=== PATIENT | female | born 1935 | race Two or more races ===

== ENCOUNTER 2021-05-31 11:48 | Outpatient (CLI) | payer MEDICAID, SELFPAY ==
[2021-05-31 12:15] LABS: Lactic Acid 1.7 mmol/L (0.4-1.9)
== END 2021-05-31 23:59 | disposition home or self-care (01) ==
LOC: LABSPEC 11:48
PROVIDERS: PCP Internal Medicine; Visit Provider Internal Medicine Hematology & Oncology
DX: Z20.822 Contact with and (suspected) exposure to COVID-19 (principal)
CPT/HCPCS: 83605

== ENCOUNTER 2021-06-04 22:40 | Inpatient (IN) | payer MEDICAID, SELFPAY ==
[2021-06-04 22:42] VITALS: BP 104/48; PULSE 105; RESP 18; TEMP 36.3; BMI 22.3
--- NOTE | 2021-06-04 23:02 | EDS_ITS ---
HPI History of Present Illness Chief Complaint: Confusion Informant: patient and family Narrative Narrative: 86-year-old female with a history of rectal cancer status post chemo and radiation presenting to the emergency department for concerns of dehydration and diarrhea. Patient tested positive for COVID-19 last Friday. She had a significant more amount of diarrhea today despite Imodium. Family notes increased confusion compared to baseline. They note cough but no significant shortness of breath. [facility] Medical History (Updated 06/05/21 @ 00:[address] Raúl Gant DO) COVID-19 Rectal cancer Allergy/AdvReac Type Severity Reaction Status Date / Time No Known Allergies Allergy Verified 06/04/21 22:45 Social History (Updated 06/04/21 @ 23:[address] Raúl Gant DO) household members: family current gender identity: female Smoking Status: Never smoker ROS ROS ED Constitutional Constitutional ED: Reports fever(s); Denies chills or weight loss Eyes Eyes: Denies change in vision or diplopia ENT ENT ED: Denies ear pain, rhinorrhea or sore throat Cardiovascular Cardiovascular: Denies chest pain, orthopnea, palpitations or racing heartbeat Respiratory/Chest Respiratory/Chest: Reports cough; Denies dyspnea or orthopnea Gastrointestinal Gastrointestinal: Reports diarrhea; Denies abdominal pain, nausea or vomiting Genitourinary Genitourinary ED: Denies dysuria, hematuria or urinary frequency Musculoskeletal Musculoskeletal: Denies arthralgias or myalgias Integumentary Denies abscess or rash Neurologic Neurologic: Denies headache(s) or weakness Psychiatric Psychiatric: Denies anxiety, depression, suicidal ideation or suicidal thoughts Endocrine Endocrinology: Denies polydipsia, polyphagia or polyuria Allergic/Immunologic Allergic/Immunologic ED: Denies mouth swelling, tongue swelling or urticaria EXAM Physical Exam Const Vital Signs: 06/04/21 22:42 Temperature 97.4 F L Temperature Source Temporal Pulse Rate 105 H Respiratory Rate 18 Blood Pressure 104/48 L Blood Pressure Mean 66 Positive well nourished and well developed General Appearance ED: well developed HEENT Reports normocephalic, head/scalp atraumatic, TM's clear and dry mucous membranes Negative for trauma Tympanic Membrane ED: Yes TM's clear Mouth ED: Yes dry mucous membranes Mouth: dry mucous membranes Eyes PERRL and EOMs intact bilaterally Neck no lymphadenopathy, supple and no JVD Resp normal respiratory effort and clear to auscultation bilaterally Cardio regular rate, regular rhythm and no murmurs GI normal to inspection, nondistended, normoactive bowel sounds and non-tender Palpation: soft Back/Spine no CVA tenderness and normal ROM Extremity Extremity Narrative: Arthritic changes General Extremety ED: Negative for edema General Extremity: Negative for edema Neuro oriented x3 and CN's II-XII intact bilaterally Sensorium / Orientation: alert Motor Exam: strength 5/5 throughout Psych mental status grossly normal Mood & Affect: Negative for depressed or tearful Skin no rashes or lesions noted and no wounds MDM MDM MDM Narrative Medical decision making narrative: Patient's blood counts reveal a white count of 6.7 with a hemoglobin 8.4. She does have a history of chronic anemia. Lactic acid elevated at 2.5. Patient's potassium 5.2 with a sodium of 141. Magnesium 2.5. CO2 is down to 15. BUN is 79 with a creatinine of 2.29. Her creatinine last week was 1.2. Interpretation of the chest x-ray is multifocal infiltrates consistent with COVID-19. From a pulmonary standpoint she continues to do well with not requiring any supplemental oxygen or complaining of dyspnea. Patient continues to have diarrheal losses. She has received a liter of fluids. Plan will be admission for hydration. Lab Data Attestation: I reviewed the patient's lab results. Labs: Laboratory Results - last 24 hr 06/04/21 06/04/21 06/04/21 23:10 23:10 23:15 WBC 6.7 RBC 2.92 L Hgb 8.4 L Hct 24.7 L MCV 84.6 MCH 28.8 MCHC 34.0 RDW Std Deviation 65.3 H RDW Coeff of Alida 21.6 H Plt Count 123 L MPV 11.1 Immature Gran % (Auto) 3.100 H Neut % (Auto) 92.0 H Lymph % (Auto) 0.6 L [place] % (Auto) 4.2 Eos % (Auto) 0.0 Baso % (Auto) 0.1 Absolute Neuts (auto) 6.2 Absolute Lymphs (auto) 0.04 L Nucleated RBC % 0.3 Anisocytosis 3+ Sodium 141 Potassium 5.2 H Chloride 116 H Carbon Dioxide 15.0 L Anion Gap 10 BUN 79 H Creatinine 2.29 H Estim Creat Clear Calc 13.25 Est GFR (MDRD) Af Amer 26 L Est GFR (MDRD) Non-Af 22 L BUN/Creatinine Ratio 34.5 H Glucose 149 H Lactic Acid 2.5 H* Calcium 8.1 L Magnesium 2.5 Total Bilirubin 0.30 AST 91 H ALT 41 Alkaline Phosphatase 70 Total Protein 6.2 L Albumin 2.0 L Globulin 4.2 Albumin/Globulin Ratio 0.5 L Radiography Diagnostic Testing: Clinical Impression(s) from Imaging Studies Chest X-Ray 06/04/21 23:20 IMPRESSION: Patchy pulmonary infiltrates suspicious for COVID pneumonia. Electronically Signed: Johny Go DO at 23:43 EST Tel [phone], Service support , EKG Initial EKG: Attestation: I personally reviewed and interpreted this EKG as follows: Comments: Sinus rhythm with a ventricular rate of 95 bpm Discharge Plan Dx/Rx/DC Orders Clinical Impression: COVID-19, PADILLA (acute kidney injury), Acute encephalopathy Disposition Disposition: Acute Care Hospital [facility]
[2021-06-04] MEDS: 0.9% Normal Saline 1,000 ML 1000 ML IV (23:20)
--- NOTE | 2021-06-04 23:20 | RAD_ITS ---
STUDY: X-RAY CHEST REASON FOR EXAM: Female, 86 years old. COVID 19. TECHNIQUE: Single AP portable view of the chest. COMPARISON: None. FINDINGS: Lungs well expanded. There is patchy groundglass infiltrates throughout both lungs most marked in the left mid and lower lobe. There is no demonstrated pleural abnormality. Normal size heart. Normal mediastinum and rubia. Normal visualized pulmonary arteries. There is atherosclerotic calcification of the aortic arch with tortuosity. Dextroscoliosis and degenerative changes of the thoracic spine marked degenerative changes of the shoulders. There is no demonstrated abnormality of the visualized soft tissue structures of the upper abdomen. RAD/Chest 1 View (Portable) IMPRESSION: Patchy pulmonary infiltrates suspicious for COVID pneumonia. Electronically Signed: Johny Go DO at 23:43 EST Tel [phone], Service support ,
[2021-06-04 23:31] LABS: Absolute Lymphocyte Count 0.04 X10^3/uL (0.83-4.51); Absolute Neutrophil Count 6.2 X10^3/uL (2.0-7.7); Basophil# 0.01 X10^3/uL; Basophil% 0.1 % (0-1); Hematocrit 24.7 % (37-47); Hemoglobin 8.4 g/dL (12.0-15.0); Lymphocyte # 0.04 X10^3/ul (0.83-4.51); Lymphocyte % 0.6 % (19-41); Mean Corpuscular Hgb 28.8 pg (27.0-32.0); Mean Corpuscular Volume 84.6 fL (81-99); Mean Platelet Vol. 11.1 fl (6.2-12.0); Monocyte# 0.28 X10^3/uL; Monocyte% 4.2 % (0-10); NRBC Flagged by Analyzer 0.3 % (0-5); POSITIVE DIFFERENTIAL YES; POSITIVE MORPHOLOGY YES; Platelet Count 123 K/mm3 (150-450); RBC Distribution Width CV 21.6 % (11.6-14.6); RBC Distribution Width SD 65.3 fl (35.1-43.9); Red Blood Count 2.92 M/mm3 (4.2-5.4); White Blood Count 6.7 K/mm3 (4.4-11.0)
[2021-06-04 23:43] LABS: ALB/GLOB Ratio 0.5 RATIO (0.9-2.4); AST(SGOT) 91 U/L (15-37); Alanine Aminotransfer ALT/SGPT 41 U/L (13-56); Alkaline Phosphatase 70 U/L (45-117); Anion Gap 10 (5-15); BUN 79 mg/dL (7-18); BUN/Creat Ratio 34.5 RATIO (10-20); Calcium,Total 8.1 mg/dL (8.5-10.1); Chloride 116 mmol/L (98-107); Creatinine, Serum 2.29 mg/dL (0.55-1.02); EST Glomerular Filtration Rate 22 mL/min (>60); Est Glom Filt Rate - Afr Amer 26 mL/min (>60); Estimated Creatinine Clearance 13.25 ml/min; Globulin 4.2 g/dL (2.2-4.2); Glucose 149 mg/dL (74-106); Magnesium 2.5 mg/dL (1.6-2.6); Potassium 5.2 mmol/L (3.5-5.1); Protein, Total 6.2 g/dL (6.4-8.2); Sodium Level 141 mmol/L (136-145)
[2021-06-04 23:47] LABS: Differential Indicated SCAN CRITERIA MET
[2021-06-04 23:51] LABS: Anisocytosis 3+
[2021-06-05] VITALS (11 sets, daily range): BP systolic 102–151; BP diastolic 51–68; PULSE 82–142; RESP 16–20; TEMP 36.4–37.7; O2SAT 93–97; BMI 22.0
[2021-06-05 00:01] LABS: Lactic Acid 2.5 mmol/L (0.4-1.9)
--- NOTE | 2021-06-05 00:03 | EKG12_ITS ---
Test Reason : CONFUSION Blood Pressure : / mmHG Vent. Rate : 095 BPM Atrial Rate : 095 BPM P-R Int : 084 ms QRS Dur : 068 ms QT Int : 356 ms P-R-T Axes : 020 024 015 degrees QTc Int : 447 ms Sinus rhythm with short NH Low voltage QRS Confirmed by JERAMY COOPER, GARCÍA ([id number]), sports editor ANGELIA MARIN ([id number]) on 06/05/2021 2:18:40 PM Referred By: LUKE Confirmed By:GARCÍA DESHPANDE MD
--- NOTE | 2021-06-05 00:29 | HP.PCM_ITS ---
HPI - General HPI Narrative DEVANG BAER, is a 86 F who presents to the emergency room due to diarrhea and dehydration. Patient has a significant past medical history of rectal carcinoma status post chemo and radiation therapy the last treatment being last . Today the patient has had several bouts of diarrhea and has taken up to 9 doses of Imodium to slow it down. On Friday she tested positive for COVID virus. However, the patient has minimal respiratory complaints at this time predominantly complains of generalized abdominal discomfort and diarrhea. Laboratory studies are revealing for acute dehydration. Patient will be admitted to general medical floor with IV hydration and reassessed in the morning for possible discharge tomorrow. [facility] Medical History (Updated 06/05/21 @ 00:[address] Jhon Owen MD) COVID-19 Rectal cancer Allergy/AdvReac Type Severity Reaction Status Date / Time No Known Allergies Allergy Verified 06/04/21 22:45 Social History (Updated 06/04/21 @ 23:[address] Raúl Gant DO) household members: family current gender identity: female Smoking Status: Never smoker ROS Constitutional Constitutional: Reports fatigue; Denies chills or fever(s) Eyes Eyes: Denies change in vision ENT HEENT: Denies dysphagia Cardiovascular Cardiovascular: Denies chest pain Respiratory/Chest Respiratory/Chest: Denies cough Gastrointestinal Gastrointestinal: Reports diarrhea and nausea; Denies hematochezia or melena Genitourinary Genitourinary: Denies dysuria Neurologic Neurologic: Denies abnormal gait Psychiatric Psychiatric: Denies anxiety Vital Signs Vital Signs Vital Signs: 06/04/21 22:42 Temperature 97.4 F L Temperature Source Temporal Pulse Rate 105 H Respiratory Rate 18 Blood Pressure 104/48 L Blood Pressure Mean 66 Weight Weight: 103 lb Body Mass Index (BMI) 22.3 Physical Exam Const oriented x3 HEENT normocephalic and head/scalp atraumatic Eyes PERRL Neck supple Lymph Lymphatic: no lymphadenopathy noted Resp normal respiratory effort Cardio regular rate, regular rhythm, S1 normal heart sound and S2 normal heart sound GI normal to inspection, nondistended, normoactive bowel sounds and soft to palpation Extremity no clubbing, cyanosis or edema Skin General Skin Exam: turgor normal Neuro CN's II-XII intact bilaterally Psych affect normal Results Lab / Micro Data Result Diagrams: 06/04/21 23:10 06/04/21 23:10 Labs: Laboratory Results - last 24 hr 06/04/21 23:10: WBC 6.7, RBC 2.92 L, Hgb 8.4 L, Hct 24.7 L, MCV 84.6, MCH 28.8, MCHC 34.0, RDW Std Deviation 65.3 H, RDW Coeff of Alida 21.6 H, Plt Count 123 L, MPV 11.1, Immature Gran % (Auto) 3.100 H, Neut % (Auto) 92.0 H, Lymph % (Auto) 0.6 L, [place] % (Auto) 4.2, Eos % (Auto) 0.0, Baso % (Auto) 0.1, Absolute Neuts (auto) 6.2, Absolute Lymphs (auto) 0.04 L, Nucleated RBC % 0.3, Anisocytosis 3+ 06/04/21 23:10: Sodium 141, Potassium 5.2 H, Chloride 116 H, Carbon Dioxide 15.0 L, Anion Gap 10, BUN 79 H, Creatinine 2.29 H, Estim Creat Clear Calc 13.25, Est GFR (MDRD) Af Amer 26 L, Est GFR (MDRD) Non-Af 22 L, BUN/Creatinine Ratio 34.5 H , Glucose 149 H, Calcium 8.1 L, Magnesium 2.5, Total Bilirubin 0.30, AST 91 H, ALT 41, Alkaline Phosphatase 70, Total Protein 6.2 L, Albumin 2.0 L, Globulin 4.2, Albumin/Globulin Ratio 0.5 L 06/04/21 23:15: Lactic Acid 2.5 H* Radiology Impression Chest X-Ray 06/04/21 23:20 IMPRESSION: Patchy pulmonary infiltrates suspicious for COVID pneumonia. Electronically Signed: Johny Go DO at 23:43 EST Tel [phone], Service support , Assessment & Plan Assessment/Plan (1) PADILLA (acute kidney injury): (2) COVID-19: (3) Rectal cancer: PLAN: 1. Acute kidney injury secondary to dehydration from diarrhea?admit patient to general medical floor we will hydrate with D5 half-normal saline with 20 mill equivalents of KCl at a rate of 100 cc/h overnight and repeat BMP in the morning 2. COVID-19 positive?continue isolation protocol -patient denies respiratory complaint at this time 3. History of rectal cancer/numerous recent medications?we will add a C. difficile and stool culture 4. DVT prophylaxis?SCDs due to acute kidney injury Charges/Coding Visit Charges OBSV E&M: 23399 Initial observation care L2
[2021-06-05] MEDS: 0.9% Normal Saline 1,000 ML 100 ML IV (02:29)
--- NOTE | 2021-06-05 03:09 | PCS.PANDOC ---
Addendum entered by Jacqueline Silva 06/05/21 03:12: 06/05/2021 0138hrs Original Note: PANDEMIC DOCUMENTATION INITIATED: Date: 01/08/2021 Time: 190
[2021-06-05 03:22] LABS: Reflex Lactate? Y
[2021-06-05 04:41] LABS: Anion Gap 8 (5-15); BUN 67 mg/dL (7-18); BUN/Creat Ratio 36.8 RATIO (10-20); Calcium,Total 7.5 mg/dL (8.5-10.1); Chloride 121 mmol/L (98-107); Creatinine, Serum 1.82 mg/dL (0.55-1.02); EST Glomerular Filtration Rate 28 mL/min (>60); Est Glom Filt Rate - Afr Amer 34 mL/min (>60); Estimated Creatinine Clearance 16.55 ml/min; Glucose 101 mg/dL (74-106); Potassium 4.5 mmol/L (3.5-5.1); Sodium Level 145 mmol/L (136-145)
[2021-06-05 04:48] LABS: Lactic Acid 1.3 mmol/L (0.4-1.9)
--- NOTE | 2021-06-05 07:19 | PCM.PN.HOSP ---
Subjective Subjective Patient is an 86-year-old lady who recently completed chemoradiation therapy for rectal CA presented with profuse diarrhea. Patient tested positive for COVID on 06/01/2021. Presented to the emergency department due to the persistent diarrhea. Patient was found to be in acute kidney injury on admission admitted to regular nursing floor for further management Objective Data Objective Data Vital Signs: Vital Signs Temp Pulse Resp BP Pulse Ox 99 F 96 20 H 121/54 H 94 06/05/21 02:33 06/05/21 02:33 06/05/21 02:33 06/05/21 02:33 06/05/21 02:33 Oxygen Delivery Method Room Air Weight: 46.4 kg Body Mass Index (BMI) 22.0 Intake & Output: Intake and Output for Last 24 Hours 06/03/21 06/04/21 06/05/21 23:59 23:59 23:59 Intake Total 1000 / 1000 Balance 1000 / 1000 Lab / Micro Data Result Diagrams: 06/04/21 23:10 06/05/21 04:00 Labs: Laboratory Results - last 24 hr 06/04/21 23:10: WBC 6.7, RBC 2.92 L, Hgb 8.4 L, Hct 24.7 L, MCV 84.6, MCH 28.8, MCHC 34.0, RDW Std Deviation 65.3 H, RDW Coeff of Alida 21.6 H, Plt Count 123 L, MPV 11.1, Immature Gran % (Auto) 3.100 H, Neut % (Auto) 92.0 H, Lymph % (Auto) 0.6 L, [place] % (Auto) 4.2, Eos % (Auto) 0.0, Baso % (Auto) 0.1, Absolute Neuts (auto) 6.2, Absolute Lymphs (auto) 0.04 L, Nucleated RBC % 0.3, Anisocytosis 3+ 06/04/21 23:10: Sodium 141, Potassium 5.2 H, Chloride 116 H, Carbon Dioxide 15.0 L, Anion Gap 10, BUN 79 H, Creatinine 2.29 H, Estim Creat Clear Calc 13.25, Est GFR (MDRD) Af Amer 26 L, Est GFR (MDRD) Non-Af 22 L, BUN/Creatinine Ratio 34.5 H, Glucose 149 H, Calcium 8.1 L, Magnesium 2.5, Total Bilirubin 0.30, AST 91 H, ALT 41, Alkaline Phosphatase 70, Total Protein 6.2 L, Albumin 2.0 L, Globulin 4.2, Albumin/Globulin Ratio 0.5 L 06/04/21 23:15: Lactic Acid 2.5 H* 06/05/21 04:00: Sodium 145, Potassium 4.5, Chloride 121 H, Carbon Dioxide 16.0 L, Anion Gap 8, BUN 67 H, Creatinine 1.82 H, Estim Creat Clear Calc 16.55, Est GFR (MDRD) Af Amer 34 L, Est GFR (MDRD) Non-Af 28 L, BUN/Creatinine Ratio 36.8 H, Glucose 101, Calcium 7.5 L 06/05/21 04:00: Lactic Acid 1.3 Radiography Diagnostic Testing: Radiology Impression Chest X-Ray 06/04/21 23:20 IMPRESSION: Patchy pulmonary infiltrates suspicious for COVID pneumonia. Electronically Signed: Johny Go DO at 23:43 EST Tel [phone], Service support , Physical Exam Narrative GENERAL: Frail looking HEENT: Atraumatic; EYES; Anicteric, Normal Conjunctiva NECK; supple, normal thyroid, RESPIRATORY: Diminished to auscultation CARDIOVASCULAR: Regular S1 S2, GI: soft, normoactive bowel sounds, : No Renal angle tenderness; EXTREMITIES: No edema, no clubbing, MUSCULOSKELETAL: no muscle waisting NEURO: Awake; no lateralizing signs. SKIN: No Rash PSYCH; Flat affect Assessment & Plan Assessment/Plan (1) PADILLA (acute kidney injury): (2) COVID-19: (3) Rectal cancer: PLAN: Patient is an 86-year-old lady who recently completed chemoradiation therapy for rectal CA presented with profuse diarrhea. Patient tested positive for COVID on 06/01/2021. Presented to the emergency department due to the persistent diarrhea. Patient was found to be in acute kidney injury on admission admitted to regular nursing floor for further management 1. Acute kidney injury ? Secondary to severe dehydration from profuse diarrhea admitted to the regular nursing floor where patient is currently being treated with IV fluids with subsequent monitoring with daily BMPs ordered 2. Acute COVID-19 infection ? Patient presented with diarrhea. This is being treated symptomatically. Currently not on any supplemental oxygen. 3. Diarrhea? Viral gastroenteritis from COVID versus effect from recent chemoradiation for rectal CA ? Patient be treated symptomatically and was given for patient to have a stool sample sent for C. difficile 4. Rectal CA ? Patient recently completed chemoradiation 4. GERD ? On PPI did continue 5. Anemia - Secondary to chronic disorder monitoring H&H and transfuse if patient becomes symptomatic or hemoglobin falls below 7 6. DVT prophylaxis ? Lovenox dose adjusted for kidney function Charges/Coding Visit Charges Inpatient E&M: 44280 Subs Hosp L3
[2021-06-05] MEDS: Pantoprazole Sodium 40 MG Tablet PO (10:36)
[2021-06-05] MEDS: oxyCODONE 5 MG Tablet PO ×2 (10:36→20:19)
[2021-06-05] MEDS: Enoxaparin 30 MG/0.3 ML Syringe SC (10:37)
[2021-06-05] MEDS: 0.45% Normal Saline 1,000 ML 150 ML IV ×2 (10:42→20:19)
--- NOTE | 2021-06-05 15:13 | EKG12_ITS ---
Test Reason : TACHY Blood Pressure : / mmHG Vent. Rate : 141 BPM Atrial Rate : 141 BPM P-R Int : 124 ms QRS Dur : 066 ms QT Int : 286 ms P-R-T Axes : 029 012 008 degrees QTc Int : 438 ms Sinus tachycardia Otherwise normal ECG When compared with ECG of 05-JUN-2021 00:24, NH interval has increased Confirmed by JESSICA COOPER, BERENICE ([id number]), website/blog editor HUI PEDRAZA ([id number]) on 06/07/2021 1:51:35 PM Referred By: KIEL Confirmed By:JONY LOPEZ MD
--- NOTE | 2021-06-05 15:26 | CASEMGMT ---
RN CM to complete assessment, per nursing request assessmen to be held at this time due to increased heartrate and EKG ordered. RN CM to complete assessment at a later time.
[2021-06-06] VITALS (16 sets, daily range): BP systolic 130–149; BP diastolic 45–100; PULSE 80–146; RESP 18–22; TEMP 37.1–39; O2SAT 91–100
--- NOTE | 2021-06-06 00:50 | PCS.PANDOC ---
PANDEMIC DOCUMENTATION INITIATED: Date: 06/05/20 Time: 1899
[2021-06-06] MEDS: 0.45% Normal Saline 1,000 ML 150 ML IV (04:10)
[2021-06-06] MEDS: Acetaminophen 325 MG Tablet 650 MG PO ×2 (04:11→20:33)
[2021-06-06 06:28] LABS: Absolute Lymphocyte Count 0.12 X10^3/uL (0.83-4.51); Absolute Neutrophil Count 4.8 X10^3/uL (2.0-7.7); Eosinophil# 0.02 X10^3/uL; Eosinophils% 0.4 % (0-5); Hematocrit 21.3 % (37-47); Hemoglobin 7.3 g/dL (12.0-15.0); Lymphocyte # 0.12 X10^3/ul (0.83-4.51); Lymphocyte % 2.3 % (19-41); Mean Corp Hgb Conc 34.3 g/dL (32-36); Mean Corpuscular Hgb 28.1 pg (27.0-32.0); Mean Corpuscular Volume 81.9 fL (81-99); Mean Platelet Vol. 9.9 fl (6.2-12.0); Monocyte# 0.22 X10^3/uL; Monocyte% 4.2 % (0-10); NRBC Flagged by Analyzer 0.4 % (0-5); Neutrophil # 4.78 X10^3/uL (2.7-7.7); Neutrophil % 92.1 % (47-70); POSITIVE DIFFERENTIAL YES; POSITIVE MORPHOLOGY YES; Platelet Count 129 K/mm3 (150-450); RBC Distribution Width CV 21.2 % (11.6-14.6); RBC Distribution Width SD 61.9 fl (35.1-43.9); White Blood Count 5.2 K/mm3 (4.4-11.0)
[2021-06-06 06:48] LABS: Differential Indicated SCAN CRITERIA MET
[2021-06-06 06:52] LABS: Anisocytosis 2+
[2021-06-06 07:00] LABS: ALB/GLOB Ratio 0.5 RATIO (0.9-2.4); AST(SGOT) 65 U/L (15-37); Alanine Aminotransfer ALT/SGPT 37 U/L (13-56); Albumin, Serum 1.7 g/dL (3.2-5.0); Alkaline Phosphatase 64 U/L (45-117); Anion Gap 8 (5-15); BUN 37 mg/dL (7-18); BUN/Creat Ratio 28.9 RATIO (10-20); Calcium,Total 7.5 mg/dL (8.5-10.1); Chloride 118 mmol/L (98-107); Creatinine, Serum 1.28 mg/dL (0.55-1.02); EST Glomerular Filtration Rate 42 mL/min (>60); Est Glom Filt Rate - Afr Amer 51 mL/min (>60); Estimated Creatinine Clearance 23.54 ml/min; Globulin 3.4 g/dL (2.2-4.2); Glucose 87 mg/dL (74-106); Magnesium 1.8 mg/dL (1.6-2.6); Potassium 3.9 mmol/L (3.5-5.1); Protein, Total 5.1 g/dL (6.4-8.2); Sodium Level 142 mmol/L (136-145)
--- NOTE | 2021-06-06 07:53 | PN.HOSP_ITS ---
Subjective Subjective Patient seen complains of significant pain in the perirectal region. Adjusted pain medication by increasing her Oxy IR from 5 mg p.o. twice daily to 10 mg p.o. twice daily added morphine 4 mg every 3 hours as needed for pain. Patient also had to be placed on supplemental oxygen Objective Data Objective Data Vital Signs: Vital Signs Temp Pulse Resp BP Pulse Ox 100.1 F H 103 H 18 149/100 H 98 06/06/21 02:45 06/06/21 03:00 06/06/21 02:45 06/06/21 02:45 06/06/21 02:45 Oxygen Flow Rate (L/min) 3 Oxygen Delivery Method Nasal Cannula Weight: 46.4 kg Body Mass Index (BMI) 22.0 Intake & Output: Intake and Output for Last 24 Hours 06/04/21 06/05/21 06/06/21 23:59 23:59 23:59 Intake Total 2821.67 / 2821.67 1100 / 1100 Balance 2821.67 / 2821.67 1100 / 1100 Medical Nutrition Assessment Dietitian: Malnutrition Criteria Met Start: 06/05/21 10:56 Freq: Status: Active Protocol: Document 06/05/21 10:56 RMA (Rec: 06/05/21 10:56 RMA [id number]) Nutrition Malnutrition Evidence of Malnutrition Exists Yes Malnutrition (severe): Acute Illness/Injury Evidenced By Suboptimal Energy Intake ( Severe),Weight Loss (Severe) Clinical Problem Acute Disease or Injury Related Malnutrition Etiology Severe protein-calorie malnutrition in the context of acute illness related to inadequate oral intake and dehydration/diarrhea Signs/Symptoms as evidenced by 3% wt loss x less than 1 week and oral intake meeting less than 50% estimated nutrition and fluid needs. Status Active Problem Recommendation Dietitian Recommendations/Changes Will add 240ml ensure clear BID w/ lunch and dinner. Advance PO as tolerated to Regular diet. Will add oral nutrition supplements as needed when PO established for adequacy. Lab / Micro Data Result Diagrams: 06/06/21 05:30 06/06/21 05:30 Labs: Laboratory Results - last 24 hr 06/06/21 05:30: WBC 5.2, RBC 2.60 L, Hgb 7.3 L, Hct 21.3 L, MCV 81.9, MCH 28.1, MCHC 34.3, RDW Std Deviation 61.9 H, RDW Coeff of Alida 21.2 H, Plt Count 129 L, MPV 9.9, Immature Gran % (Auto) 1.000 H, Neut % (Auto) 92.1 H, Lymph % (Auto) 2.3 L, [place] % (Auto) 4.2, Eos % (Auto) 0.4, Baso % (Auto) 0.0, Absolute Neuts (auto) 4.8, Absolute Lymphs (auto) 0.12 L, Nucleated RBC % 0.4, Anisocytosis 2+ 06/06/21 05:30: Sodium 142, Potassium 3.9, Chloride 118 H, Carbon Dioxide 16.0 L , Anion Gap 8, BUN 37 H, Creatinine 1.28 H, Estim Creat Clear Calc 23.54, Est GFR (MDRD) Af Amer 51 L, Est GFR (MDRD) Non-Af 42 L, BUN/Creatinine Ratio 28.9 H , Glucose 87, Calcium 7.5 L, Magnesium 1.8, Total Bilirubin 0.30, AST 65 H, ALT 37, Alkaline Phosphatase 64, Total Protein 5.1 L, Albumin 1.7 L, Globulin 3.4, Albumin/Globulin Ratio 0.5 L Physical Exam Narrative GENERAL: Frail looking HEENT: Atraumatic; EYES; Anicteric, Normal Conjunctiva NECK; supple, normal thyroid, RESPIRATORY: Diminished to auscultation CARDIOVASCULAR: Regular S1 S2, GI: soft, normoactive bowel sounds, : No Renal angle tenderness; EXTREMITIES: No edema, no clubbing, MUSCULOSKELETAL: no muscle waisting NEURO: Awake; no lateralizing signs. SKIN: No Rash PSYCH; Flat affect Assessment & Plan Assessment/Plan (1) PADILLA (acute kidney injury): (2) COVID-19: (3) Rectal cancer: PLAN: Patient is an 86-year-old lady who recently completed chemoradiation therapy for rectal CA presented with profuse diarrhea. Patient tested positive for COVID on 06/01/2021. Presented to the emergency department due to the pers istent diarrhea. Patient was found to be in acute kidney injury on admission admitted to regular nursing floor for further management 1. Acute kidney injury ? Secondary to severe dehydration from profuse diarrhea admitted to the regular nursing floor where patient is currently being treated with IV fluids with subsequent monitoring with daily BMPs ordered -06/06/2021. Creatinine down to 1.28 2. Acute COVID-19 infection ? Patient presented with diarrhea. This is being treated symptomatically. Currently not on any supplemental oxygen. -06/06/2021. Patient has been placed on supplemental oxygen necessitating patient status be changed from observation to full inpatient admit 3. Diarrhea? Viral gastroenteritis from COVID versus effect from recent chemoradiation for rectal CA ? Patient be treated symptomatically and was given for patient to have a stool sample sent for C. difficile 4. Rectal CA ? Patient recently completed chemoradiation ? Patient complaining of significant perirectal pain treated locally in addition to increasing patient systemic pain management 4. GERD ? On PPI did continue 5. Anemia - Secondary to chronic disorder monitoring H&H and transfuse if patient becomes symptomatic or hemoglobin falls below 7 -06/05/2021; hemoglobin down to 7.3 and order was given for iron infusion 6. DVT prophylaxis ? Lovenox dose adjusted for kidney function Charges/Coding Visit Charges Inpatient E&M: 35151 Subs Hosp L2
[2021-06-06 08:31] LABS: Platelet Count 122 K/mm3 (150-450); RET-HE 20.5 pg (30-35); Reticulocyte Count 0.27 % (0.5-1.5)
[2021-06-06 08:32] LABS: Iron 16 ug/dL (50-170); Iron Binding Capacity,Total 198 ug/dL (250-450); PERCENT IRON SATURATION 8.1 % (15.0-55.0)
[2021-06-06] MEDS: Pantoprazole Sodium 40 MG Tablet PO ×2 (09:30→09:31)
[2021-06-06] MEDS: Enoxaparin 30 MG/0.3 ML Syringe SC (09:31)
[2021-06-06] MEDS: Sodium Ferric Gluconat 250 MG in 0.9% Normal Saline 250 ML 135 MG IV (09:39)
[2021-06-06] MEDS: oxyCODONE 5 MG Tablet 10 MG PO ×2 (09:42→20:33)
[2021-06-06 10:09] LABS: Vitamin B12 1593 pg/mL (211-911)
--- NOTE | 2021-06-06 10:35 | CASEMGMT ---
Addendum entered by Afshan Hernandez 06/08/21 14:28: MIKEY WISDOM in to pt room. Pt DIL Yohana Perry in room. Verified assessment questions with her. See below for corrections to assessment Specialists: pinky Ray; adonis Marquez onc Living Arrangements: Pt lives in a single story house with a ramp to enter. DME: Pt has walker, 2 canes and a transport chair Pt does not have a LW/DPOA. Pt was first tested positive for COVID at [facility] in [place]. Should pt need O2 upon dc, pt dil would like [employer]. Provided verbal list of local in network DME companies. Also discussed therapy, pt dil would be interested in HHC pending recommendations. Therapy ordered at this time. Pt and pt dil deny further needs at this time. Original Note: MIKEY WISDOM Assessment: Face to Face with pt for initial transition planning/care coordination assessment. MIKEY WISDOM introduced self and role at [facility], pt voices understanding and consents to assessment. Pt is A/O x4 and answers all questions appropriately at this time, at times pt seems to have trouble selecting the right word. She is agreeable to calling her dil to confirm answers. TC to Yohana Perry, voicemail full, unable to leave a message. Care providers, pharmacy, and demographics verified/updated. Admitting Dx: Dehydration, PADILLA PCP: Nitish listed on face sheet although pt states it is her dil Dr. Perry. Specialists:Pt denies. Preferred Pharmacy: [facility] but pt states she is unsure of this as her dil picks up her meds. Insurance: [facility] Prescription Benefit: yes LW/HPOA: Pt denies having a LW/DPOA. Unclear if patient understood this question as she stated that she does not have money for this. LNOK: gisela Connolly Living Arrangements: Pt lives with son, dil, and grandchildren in a two story house with not many steps to enter. Pt reports she is I in ADL's and denies concerns at home. Transportation: Pt does not drive. She states dil provides transportation. DME/HHC/SNF: Pt reports she has a walker, 2 canes and a w/c at home. She denies previous HHC or SNF stays. Pt states no concerns with going home at time of dc. Pt states no further concerns/needs. CM to follow. Advised pt to ask CM if any further question/concerns/needs arise, voices understanding. Pt is unsure where she first tested positive for COVID. Will verify with dil. Pt has family who can provide groceries and supplies while in quarantine. She is not sure if any other family members have COVID. Provided pt with a local in network list of DME companies should pt be dc'd on O2, pt denies preference. Pt Goal: Home Plan:Home
--- NOTE | 2021-06-06 16:01 | NURSING ---
attempt to reach and update daughter (Yohana) about her mothers' change in condition unsuccessful, does not answer phone and her mailbox is full [phone]
--- NOTE | 2021-06-06 16:03 | NURSING ---
pt o2 demands greatly increased over course of this afternoon-pt had been on 5l reg n/c o2, placed on 6,7,8 then upgraded to high flow and even to 10 heart rate went from 90 to 160 prior to high flow, resp climbed to 28-CPS notified and pt placed on airvo @ 50% o2-pt tolerated well and after approx 8-10 min, heart rate returned to wnl (90) and resp rate returned to 24-pt checked and changed and cream applied to buttocks and attends changed dr sky aware of change in condition
--- NOTE | 2021-06-06 22:09 | PCM.HOSP.N ---
Hospitalist Note COVID + patient with diarrhea, hypoxia, worsening, fine crackles with 3L bolus history. Will place on decadron, will start loperamide, will dose cautiously with lasix 20 mg IV x 1 given PADILLA upon presentation, plan repeat CMP in AM.
[2021-06-06] MEDS: Furosemide 20 MG/2 ML VIAL IV (22:37)
[2021-06-06] MEDS: dexAMETHasone 4 MG/ML Vial 6 MG IV (22:37)
--- NOTE | 2021-06-06 22:53 | NURSING ---
This RN came into the room and patient very anxious and restless, pulling off her Airvo. Daughter in at bedside, supportive. Patient did not tolerate ice packs. This RN switched patient to HF 15L, patient seems to tolearate better. Patient positioned onto right side. Seems calmer. Daughter trying to distract and refocus patient.
--- NOTE | 2021-06-06 22:59 | PCM.HOSP.N ---
Hospitalist Note Patient with severe anxiety with airvo. Unable to be calmed even by family. Family amenable to low dose ativan trial.
--- NOTE | 2021-06-06 23:12 | CPS ---
pt unable to tolerate airvo, continues taking off. Pt placed on high flow cannula at 15 lpm
[2021-06-06] MEDS: LORazepam 2 MG/ML Syringe 0.5 MG IV (23:13)
[2021-06-07] VITALS (13 sets, daily range): BP systolic 103–131; BP diastolic 55–74; PULSE 81–126; RESP 18–20; TEMP 35.8–37.3; O2SAT 91–98
[2021-06-07] MEDS: Acetaminophen 325 MG Tablet 650 MG PO ×3 (01:03→20:22)
[2021-06-07 06:27] LABS: Absolute Lymphocyte Count 0.04 X10^3/uL (0.83-4.51); Absolute Neutrophil Count 5.8 X10^3/uL (2.0-7.7); Hematocrit 21.9 % (37-47); Hemoglobin 7.9 g/dL (12.0-15.0); Lymphocyte # 0.04 X10^3/ul (0.83-4.51); Lymphocyte % 0.7 % (19-41); Mean Corp Hgb Conc 36.1 g/dL (32-36); Mean Corpuscular Hgb 29.3 pg (27.0-32.0); Mean Corpuscular Volume 81.1 fL (81-99); Mean Platelet Vol. 10.4 fl (6.2-12.0); Monocyte# 0.15 X10^3/uL; Monocyte% 2.5 % (0-10); NRBC Flagged by Analyzer 0.3 % (0-5); Neutrophil # 5.77 X10^3/uL (2.7-7.7); POSITIVE DIFFERENTIAL YES; POSITIVE MORPHOLOGY YES; Platelet Count 135 K/mm3 (150-450); RBC Distribution Width CV 21.2 % (11.6-14.6); RBC Distribution Width SD 61.8 fl (35.1-43.9)
[2021-06-07 06:41] LABS: Differential Indicated SCAN CRITERIA MET
[2021-06-07 06:59] LABS: ALB/GLOB Ratio 0.5 RATIO (0.9-2.4); AST(SGOT) 64 U/L (15-37); Alanine Aminotransfer ALT/SGPT 36 U/L (13-56); Albumin, Serum 1.8 g/dL (3.2-5.0); Alkaline Phosphatase 74 U/L (45-117); Anion Gap 6 (5-15); BUN 33 mg/dL (7-18); BUN/Creat Ratio 18.9 RATIO (10-20); Chloride 119 mmol/L (98-107); Creatinine, Serum 1.75 mg/dL (0.55-1.02); EST Glomerular Filtration Rate 29 mL/min (>60); Est Glom Filt Rate - Afr Amer 36 mL/min (>60); Estimated Creatinine Clearance 17.22 ml/min; Globulin 3.8 g/dL (2.2-4.2); Glucose 185 mg/dL (74-106); Potassium 3.4 mmol/L (3.5-5.1); Protein, Total 5.6 g/dL (6.4-8.2); Sodium Level 142 mmol/L (136-145)
[2021-06-07 07:05] LABS: Anisocytosis 2+; Differential Comment SCANNED; Microcytosis 2+; Ovalocyte RARE
--- NOTE | 2021-06-07 07:45 | PCM.PN.HOSP ---
Subjective Subjective Patient seen had to be placed on supplemental oxygen in view of hypoxia. Steroids added to patient therapy. Objective Data Objective Data Vital Signs: Vital Signs Temp Pulse Resp BP Pulse Ox 97.7 F L 88 18 103/55 L 95 06/07/21 04:14 06/07/21 05:29 06/07/21 04:14 06/07/21 04:14 06/07/21 04:14 Oxygen Flow Rate (L/min) 13 Oxygen Delivery Method High Flow Weight: 46.4 kg Body Mass Index (BMI) 22.0 Intake & Output: Intake and Output for Last 24 Hours 06/05/21 06/06/21 06/07/21 23:59 23:59 23:59 Intake Total 2821.67 / 2821.67 3476 / 3476 Balance 2821.67 / 2821.67 3476 / 3476 Medical Nutrition Assessment Dietitian: Malnutrition Criteria Met Start: 06/05/21 10:56 Freq: Status: Active Protocol: Document 06/05/21 10:56 RMA (Rec: 06/05/21 10:56 RMA [id number]) Nutrition Malnutrition Evidence of Malnutrition Exists Yes Malnutrition (severe): Acute Illness/Injury Evidenced By Suboptimal Energy Intake ( Severe),Weight Loss (Severe) Clinical Problem Acute Disease or Injury Related Malnutrition Etiology Severe protein-calorie malnutrition in the context of acute illness related to inadequate oral intake and dehydration/diarrhea Signs/Symptoms as evidenced by 3% wt loss x less than 1 week and oral intake meeting less than 50% estimated nutrition and fluid needs. Status Active Problem Recommendation Dietitian Recommendations/Changes Will add 240ml ensure clear BID w/ lunch and dinner. Advance PO as tolerated to Regular diet. Will add oral nutrition supplements as needed when PO established for adequacy. Lab / Micro Data Result Diagrams: 06/07/21 05:50 06/07/21 05:50 Labs: Laboratory Results - last 24 hr 06/06/21 05:30: Iron 16 L, TIBC 198 L, Iron Saturation 8.1 L 06/06/21 05:30: Retic Count 0.27 L, Immature Retic Fraction 16.30 H, Retic Hgb Equivalent 20.5 L 06/06/21 09:25: Vitamin B12 1593 H 06/07/21 05:50: WBC 6.0, RBC 2.70 L, Hgb 7.9 L, Hct 21.9 L, MCV 81.1, MCH 29.3, MCHC 36.1 H D, RDW Std Deviation 61.8 H, RDW Coeff of Alida 21.2 H, Plt Count 135 L, MPV 10.4, Immature Gran % (Auto) 0.800, Neut % (Auto) 96.0 H, Lymph % (Auto) 0.7 L, [place] % (Auto) 2.5, Eos % (Auto) 0.0, Baso % (Auto) 0.0, Absolute Neuts (auto) 5.8, Absolute Lymphs (auto) 0.04 L, Nucleated RBC % 0.3, Differential Comment SCANNED, Anisocytosis 2+, Microcytosis 2+, Ovalocytes RARE 06/07/21 05:50: Sodium 142, Potassium 3.4 L, Chloride 119 H, Carbon Dioxide 17.0 L, Anion Gap 6, BUN 33 H, Creatinine 1.75 H, Estim Creat Clear Calc 17.22, Est GFR (MDRD) Af Amer 36 L, Est GFR (MDRD) Non-Af 29 L, BUN/Creatinine Ratio 18.9, Glucose 185 H, Calcium 8.0 L, Total Bilirubin 0.30, AST 64 H, ALT 36, Alkaline Phosphatase 74, Total Protein 5.6 L, Albumin 1.8 L, Globulin 3.8, Albumin/Globulin Ratio 0.5 L Micro: Microbiology 06/06/21 09:28 Stool C. difficile DNA Amplification - Final Physical Exam Narrative GENERAL: Frail looking HEENT: Atraumatic; EYES; Anicteric, Normal Conjunctiva NECK; supple, normal thyroid, RESPIRATORY: Diminished to auscultation CARDIOVASCULAR: Regular S1 S2, GI: soft, normoactive bowel sounds, : No Renal angle tenderness; EXTREMITIES: No edema, no clubbing, MUSCULOSKELETAL: no muscle waisting NEURO: Awake; no lateralizing signs. SKIN: No Rash PSYCH; Flat affect Assessment & Plan Assessment/Plan (1) PADILLA (acute kidney injury): (2) COVID-19: PLAN: Patient is an 86-year-old lady who recently completed chemoradiation therapy for rectal CA presented with profuse diarrhea. Patient tested positive for COVID on 06/01/2021. Presented to the emergency department due to the persistent diarrhea. Patient was found to be in acute kidney injury on admission admitted to regular nursing floor for further management 1. Acute kidney injury ? Secondary to severe dehydration from profuse diarrhea admitted to the regular nursing floor where patient is currently being treated with IV fluids with subsequent monitoring with daily BMPs ordered -06/06/2021. Creatinine down to 1.28 2. Acute COVID-19 infection ? Patient presented with diarrhea. This is being treated symptomatically. Currently not on any supplemental oxygen. -06/06/2021. Patient has been placed on supplemental oxygen necessitating patient status be changed from observation to full inpatient admit -06/07/2021 Patient seen had to be placed on supplemental oxygen in view of hypoxia. Steroids added to patient therapy. 3. Diarrhea? Viral gastroenteritis from COVID versus effect from recent chemoradiation for rectal CA ? Patient be treated symptomatically and was given for patient to have a stool sample sent for C. difficile 4. Rectal CA ? Patient recently completed chemoradiation ? Patient complaining of significant perirectal pain treated locally in addition to increasing patient systemic pain management 4. GERD ? On PPI did continue 5. Anemia - Secondary to chronic disorder monitoring H&H and transfuse if patient becomes symptomatic or hemoglobin falls below 7 -06/05/2021; hemoglobin down to 7.3 and order was given for iron infusion 6. DVT prophylaxis ? Lovenox dose adjusted for kidney function 7. Hypokalemia -Corrected per protocol -Repeat labs ordered for evaluation 8. Acute delirium Do suspect patient pain contributing moreover patient did receive Ativan. Will discontinue benzos and use Seroquel at night if needed Charges/Coding Visit Charges Inpatient E&M: [address] [place] [address]
[2021-06-07] MEDS: oxyCODONE 5 MG Tablet 10 MG PO (10:19)
[2021-06-07] MEDS: dexAMETHasone 4 MG/ML Vial 6 MG IV (10:20)
[2021-06-07] MEDS: Enoxaparin 30 MG/0.3 ML Syringe SC (10:20)
[2021-06-07] MEDS: Iron Polysaccharide Complex 150 MG CAPSULE PO (10:20)
[2021-06-07] MEDS: Potassium Chloride Oral Tablet 10 MEQ 20 MEQ PO ×2 (12:10→16:34)
[2021-06-07] MEDS: Loperamide 2 MG Capsule PO ×2 (13:55→20:22)
[2021-06-07] MEDS: oxyCODONE 5 MG Tablet PO (21:19)
[2021-06-08] VITALS (17 sets, daily range): BP systolic 119–139; BP diastolic 66–76; PULSE 85–143; RESP 18–26; TEMP 36.1–36.4; O2SAT 74–95
[2021-06-08] MEDS: Acetaminophen 325 MG Tablet 650 MG PO ×3 (01:25→16:56)
[2021-06-08 06:31] LABS: Absolute Neutrophil Count 13.4 X10^3/uL (2.0-7.7); Basophil# 0.01 X10^3/uL; Basophil% 0.1 % (0-1); Hematocrit 25.6 % (37-47); Hemoglobin 8.9 g/dL (12.0-15.0); Lymphocyte % 0.7 % (19-41); Mean Corp Hgb Conc 34.8 g/dL (32-36); Mean Corpuscular Hgb 28.3 pg (27.0-32.0); Mean Corpuscular Volume 81.3 fL (81-99); Monocyte# 0.74 X10^3/uL; Monocyte% 5.1 % (0-10); NRBC Flagged by Analyzer 0.8 % (0-5); Neutrophil # 13.38 X10^3/uL (2.7-7.7); Neutrophil % 92.9 % (47-70); POSITIVE DIFFERENTIAL YES; POSITIVE MORPHOLOGY YES; Platelet Count 183 K/mm3 (150-450); RBC Distribution Width CV 21.7 % (11.6-14.6); RBC Distribution Width SD 63.7 fl (35.1-43.9); Red Blood Count 3.15 M/mm3 (4.2-5.4); White Blood Count 14.4 K/mm3 (4.4-11.0)
[2021-06-08 06:45] LABS: Differential Indicated SCAN CRITERIA MET
[2021-06-08 06:46] LABS: Anisocytosis 3+
[2021-06-08 06:47] LABS: Polychromasia RARE
[2021-06-08 06:57] LABS: ALB/GLOB Ratio 0.5 RATIO (0.9-2.4); AST(SGOT) 56 U/L (15-37); Alanine Aminotransfer ALT/SGPT 41 U/L (13-56); Albumin, Serum 2.1 g/dL (3.2-5.0); Alkaline Phosphatase 113 U/L (45-117); Anion Gap 11 (5-15); BUN 43 mg/dL (7-18); Calcium,Total 8.8 mg/dL (8.5-10.1); Chloride 120 mmol/L (98-107); Creatinine, Serum 1.79 mg/dL (0.55-1.02); EST Glomerular Filtration Rate 29 mL/min (>60); Est Glom Filt Rate - Afr Amer 35 mL/min (>60); Estimated Creatinine Clearance 16.83 ml/min; Globulin 4.4 g/dL (2.2-4.2); Glucose 178 mg/dL (74-106); Potassium 3.6 mmol/L (3.5-5.1); Protein, Total 6.5 g/dL (6.4-8.2); Sodium Level 147 mmol/L (136-145)
--- NOTE | 2021-06-08 07:36 | PN.HOSP_ITS ---
Subjective Subjective Patient seen still remains restless at night. Diagnostic data reviewed significant for sodium of 147 chloride of 120 with bicarb of 16. WBC count remains elevated at 14.4 with hemoglobin of 18.9. Case was discussed with patient's daughter. Patient had apparently been complaining of difficulty with swallowing nystatin swish and swallow added to her therapy. Also did discuss with patient's daughter to encourage water intake Objective Data Objective Data Vital Signs: Vital Signs Temp Pulse Resp BP Pulse Ox 97 F L 102 H 22 H 131/72 H 92 06/08/21 01:11 06/08/21 03:45 06/08/21 01:11 06/08/21 01:11 06/08/21 01:17 Oxygen Flow Rate (L/min) 12 Oxygen Delivery Method High Flow Weight: 46.4 kg Body Mass Index (BMI) 22.0 Intake & Output: Intake and Output for Last 24 Hours 06/06/21 06/07/21 06/08/21 23:59 23:59 23:59 Intake Total 3476 / 3476 170 / 170 Output Total 200 / 200 Balance 3476 / 3476 -30 / -30 Medical Nutrition Assessment Dietitian: Malnutrition Criteria Met Start: 06/05/21 10 :56 Freq: Status: Active Protocol: Document 06/05/21 10:56 RMA (Rec: 06/05/21 10:56 RMA [id number]) Nutrition Malnutrition Evidence of Malnutrition Exists Yes Malnutrition (severe): Acute Illness/Injury Evidenced By Suboptimal Energy Intake ( Severe),Weight Loss (Severe) Clinical Problem Acute Disease or Injury Related Malnutrition Etiology Severe protein-calorie malnutrition in the context of acute illness related to inadequate oral intake and dehydration/diarrhea Signs/Symptoms as evidenced by 3% wt loss x less than 1 week and oral intake meeting less than 50% estimated nutrition and fluid needs. Status Active Problem Recommendation Dietitian Recommendations/Changes Will add 240ml ensure clear BID w/ lunch and dinner. Advance PO as tolerated to Regular diet. Will add oral nutrition supplements as needed when PO established for adequacy. Lab / Micro Data Result Diagrams: 06/08/21 06:15 06/08/21 06:15 Labs: Laboratory Results - last 24 hr 06/08/21 06:15: WBC 14.4 H, RBC 3.15 L, Hgb 8.9 L, Hct 25.6 L, MCV 81.3, MCH 28.3, MCHC 34.8, RDW Std Deviation 63.7 H, RDW Coeff of [place] 21.7 H, Plt Count 183, MPV 10.0, Immature Gran % (Auto) 1.200 H, Neut % (Auto) 92.9 H, Lymph % (Auto) 0.7 L, [place] % (Auto) 5.1, Eos % (Auto) 0.0, Baso % (Auto) 0.1, Absolute Neuts (auto) 13.4 H, Absolute Lymphs (auto) 0.10 L, Nucleated RBC % 0.8, Polychromasia RARE, Anisocytosis 3+ 06/08/21 06:15: Sodium 147 H, Potassium 3.6, Chloride 120 H, Carbon Dioxide 16.0 L, Anion Gap 11, BUN 43 H, Creatinine 1.79 H, Estim Creat Clear Calc 16.83, Est GFR (MDRD) Af Amer 35 L, Est GFR (MDRD) Non-Af 29 L, BUN/Creatinine Ratio 24.0 H , Glucose 178 H, Calcium 8.8, Total Bilirubin 0.40, AST 56 H, ALT 41, Alkaline Phosphatase 113, Total Protein 6.5, Albumin 2.1 L, Globulin 4.4 H, Albumin/Globulin Ratio 0.5 L Micro: Microbiology 06/06/21 09:28 Stool C. difficile DNA Amplification - Final Physical Exam Narrative GENERAL: Frail looking HEENT: Atraumatic; EYES; Anicteric, Normal Conjunctiva NECK; supple, normal thyroid, RESPIRATORY: Diminished to auscultation CARDIOVASCULAR: Regular S1 S2, GI: soft, normoactive bowel sounds, : No Renal angle tenderness; EXTREMITIES: No edema, no clubbing, MUSCULOSKELETAL: no muscle waisting NEURO: Awake; no lateralizing signs. SKIN: No Rash PSYCH; Flat affect Assessment & Plan Assessment/Plan (1) PADILLA (acute kidney injury): (2) COVID-19: PLAN: Patient is an 86-year-old lady who recently completed chemoradiation therapy for rectal CA presented with profuse diarrhea. Patient tested positive for COVID on 06/01/2021. Presented to the emergency department due to the persistent diarrhea. Patient was found to be in acute kidney injury on admission admitted to regular nursing floor for further management 1. Acute kidney injury ? Secondary to severe dehydration from profuse diarrhea admitted to the regular nursing floor where patient is currently being treated with IV fluids with subsequent monitoring with daily BMPs ordered -06/06/2021. Creatinine down to 1.28 -06/08/2021. Creatinine up to 1.79 following administration of Lasix. Patient also has hypernatremia for which increase oral intake of water has been enco uraged 2. Acute COVID-19 infection ? Patient presented with diarrhea. This is being treated symptomatically. Currently not on any supplemental oxygen. -06/06/2021. Patient has been placed on supplemental oxygen necessitating patient status be changed from observation to full inpatient admit -06/07/2021 Patient seen had to be placed on supplemental oxygen in view of hypoxia. Steroids added to patient therapy. 3. Diarrhea? Viral gastroenteritis from COVID versus effect from recent chemoradiation for rectal CA ? Patient be treated symptomatically and was given for patient to have a stool s ample sent for C. difficile 4. Rectal CA ? Patient recently completed chemoradiation ? Patient complaining of significant perirectal pain treated locally in addition to increasing patient systemic pain management 4. GERD ? On PPI did continue 5. Anemia - Secondary to chronic disorder monitoring H&H and transfuse if patient becomes symptomatic or hemoglobin falls below 7 -06/05/2021; hemoglobin down to 7.3 and order was given for iron infusion -06/08/2021; hemoglobin up to 8.9 6. DVT prophylaxis ? Lovenox dose adjusted for kidney function 7. Hypokalemia -Corrected per protocol -Repeat labs ordered for evaluation 8. Acute delirium Do suspect patient pain contributing moreover patient did receive Ativan. Will discontinue benzos and use Seroquel at night if needed -06/08/2019 patient to be prescribed Benadryl 25 mg p.o. nightly 9. Hypernatremia ? Secondary to decreased oral intake use of free water encouraged Charges/Coding Visit Charges Inpatient E&M: 97040 Subs Hosp L2
[2021-06-08] MEDS: oxyCODONE 5 MG Tablet PO ×2 (09:55→21:42)
[2021-06-08] MEDS: Potassium Chloride Oral Tablet 10 MEQ 20 MEQ PO ×2 (09:55→16:55)
[2021-06-08] MEDS: dexAMETHasone 4 MG/ML Vial 6 MG IV (09:56)
[2021-06-08] MEDS: Pantoprazole Sodium 40 MG Tablet PO (09:56)
[2021-06-08] MEDS: 0.9% Saline Lock 10 ML Syringe IV ×2 (09:56→15:37)
[2021-06-08] MEDS: Iron Polysaccharide Complex 150 MG CAPSULE PO (09:56)
[2021-06-08] MEDS: Enoxaparin 30 MG/0.3 ML Syringe SC (09:56)
[2021-06-08] MEDS: Loperamide 2 MG Capsule PO (10:09)
[2021-06-08] MEDS: NYSTATIN 500,000 UNIT/5 ML UDC 500000 UNIT PO ×3 (11:10→21:43)
[2021-06-08] MEDS: 0.45% Normal Saline 1,000 ML 100 ML IV ×2 (15:36→23:18)
[2021-06-08] MEDS: BMX LIQUID 180 ML PO ×2 (16:56→21:51)
[2021-06-08] MEDS: QUEtiapine 25 MG Tablet PO (19:25)
[2021-06-09] VITALS (18 sets, daily range): BP systolic 125–145; BP diastolic 59–88; PULSE 69–116; RESP 18–24; TEMP 36.1–36.6; O2SAT 69–97
[2021-06-09] MEDS: DiphenhydrAMINE 25 MG Capsule PO ×2 (00:59→21:43)
[2021-06-09] MEDS: Acetaminophen 325 MG Tablet 650 MG PO ×2 (01:24→21:43)
[2021-06-09] MEDS: Mag Hydrox/Al Hydrox/Simeth 30 ML UDC 15 ML PO (01:25)
[2021-06-09] MEDS: BMX LIQUID 180 ML PO ×4 (05:42→21:55)
--- NOTE | 2021-06-09 07:38 | PCM.PN.HOSP ---
Subjective Subjective Patient seen still remains restless. Went over case with patient's daughter (Dr. Perry). We did initiate Benadryl at night for sleep in addition to Seroquel. Objective Data Objective Data Vital Signs: Vital Signs Temp Pulse Resp BP Pulse Ox 97.4 F L 96 20 H 137/72 H 94 06/09/21 05:28 06/09/21 07:00 06/09/21 05:28 06/09/21 05:28 06/09/21 05:28 Oxygen Flow Rate (L/min) 15 Oxygen Delivery Method High Flow Weight: 46.4 kg Body Mass Index (BMI) 22.0 Intake & Output: Intake and Output for Last 24 Hours 06/07/21 06/08/21 06/09/21 23:59 23:59 23:59 Intake Total 1540 / 1540 Output Total 200 / 200 Balance 1340 / 1340 Medical Nutrition Assessment Dietitian: Malnutrition Criteria Met Start: 06/05/21 10:56 Freq: Status: Active Protocol: Document 06/05/21 10:56 RMA (Rec: 06/05/21 10:56 RMA [id number]) Nutrition Malnutrition Evidence of Malnutrition Exists Yes Malnutrition (severe): Acute Illness/Injury Evidenced By Suboptimal Energy Intake ( Severe),Weight Loss (Severe) Clinical Problem Acute Disease or Injury Related Malnutrition Etiology Severe protein-calorie malnutrition in the context of acute illness related to inadequate oral intake and dehydration/diarrhea Signs/Symptoms as evidenced by 3% wt loss x less than 1 week and oral intake meeting less than 50% estimated nutrition and fluid needs. Status Active Problem Recommendation Dietitian Recommendations/Changes Will add 240ml ensure clear BID w/ lunch and dinner. Advance PO as tolerated to Regular diet. Will add oral nutrition supplements as needed when PO established for adequacy. Lab / Micro Data Result Diagrams: 06/08/21 06:15 06/08/21 06:15 Micro: Microbiology 06/06/21 09:28 Stool C. difficile DNA Amplification - Final Physical Exam Narrative GENERAL: Frail looking HEENT: Atraumatic; EYES; Anicteric, Normal Conjunctiva NECK; supple, normal thyroid, RESPIRATORY: Diminished to auscultation CARDIOVASCULAR: Regular S1 S2, GI: soft, normoactive bowel sounds, : Perirectal erythema with denuded skin with some bleeding EXTREMITIES: No edema, no clubbing, MUSCULOSKELETAL: no muscle waisting NEURO: Awake; no lateralizing signs. SKIN: No Rash PSYCH; Flat affect Assessment & Plan Assessment/Plan (1) PADILLA (acute kidney injury): (2) COVID-19: PLAN: Patient is an 86-year-old lady who recently completed chemoradiation therapy for rectal CA presented with profuse diarrhea. Patient tested positive for COVID on 06/01/2021. Presented to the emergency department due to the persistent diarrhea. Patient was found to be in acute kidney injury on admission admitted to regular nursing floor for further management 1. Acute kidney injury ? Secondary to severe dehydration from profuse diarrhea admitted to the regular nursing floor where patient is currently being treated with IV fluids with subsequent monitoring with daily BMPs ordered -06/06/2021. Creatinine down to 1.28 -06/08/2021. Creatinine up to 1.79 following administration of Lasix. Patient also has hypernatremia for which increase oral intake of water has been encouraged 2. Acute COVID-19 infection ? Patient presented with diarrhea. This is being treated symptomatically. Currently not on any supplemental oxygen. -06/06/2021. Patient has been placed on supplemental oxygen necessitating patient status be changed from observation to full inpatient admit -06/07/2021 Patient seen had to be placed on supplemental oxygen in view of hypoxia. Steroids added to patient therapy. ? 06/09/2021. Patient remains on supplemental oxygen. 3. Diarrhea? Viral gastroenteritis from COVID versus effect from recent chemoradiation for rectal CA ? Patient be treated symptomatically and was given for patient to have a stool sample sent for C. 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 Patient recently completed chemoradiation ? Patient complaining of significant perirectal pain treated locally in addition to increasing patient systemic pain management 4. GERD ? On PPI did continue 5. Anemia - Secondary to chronic disorder monitoring H&H and transfuse if patient becomes symptomatic or hemoglobin falls below 7 -06/05/2021; hemoglobin down to 7.3 and order was given for iron infusion -06/08/2021; hemoglobin up to 8.9 6. DVT prophylaxis ? Lovenox dose adjusted for kidney function 7. Hypokalemia -Corrected per protocol -Repeat labs ordered for evaluation 8. Acute delirium Do suspect patient pain contributing moreover patient did receive Ativan. Will discontinue benzos and use Seroquel at night if needed -06/08/2019 patient to be prescribed Benadryl 25 mg p.o. nightly 9. Hypernatremia ? Secondary to decreased oral intake use of free water encouraged Charges/Coding Visit Charges Inpatient E&M: 13759 Subs Hosp L2
[2021-06-09] MEDS: 0.45% Normal Saline 1,000 ML 100 ML IV ×2 (09:45→21:44)
[2021-06-09] MEDS: 0.9% Saline Lock 10 ML Syringe IV (09:45)
[2021-06-09] MEDS: Enoxaparin 30 MG/0.3 ML Syringe SC (09:45)
[2021-06-09] MEDS: Potassium Chloride Oral Tablet 10 MEQ 20 MEQ PO ×2 (09:46→18:43)
[2021-06-09] MEDS: oxyCODONE 5 MG Tablet PO ×2 (09:46→21:43)
[2021-06-09] MEDS: Pantoprazole Sodium 40 MG Tablet PO (09:46)
[2021-06-09] MEDS: Iron Polysaccharide Complex 150 MG CAPSULE PO (09:47)
[2021-06-09] MEDS: NYSTATIN 500,000 UNIT/5 ML UDC 500000 UNIT PO ×4 (09:47→21:43)
[2021-06-09] MEDS: dexAMETHasone 4 MG/ML Vial 6 MG IV (09:47)
--- NOTE | 2021-06-09 10:45 | CPS ---
pt continues to take NC off and desats. placed back on 14lpm and Sat cam up to 90%, reexplained importance of keeping it on but not sure if she understands d/t language barrier. Pt is intermittantly confused and begins talking in what her daughter says is her language.
[2021-06-09 12:10] LABS: Absolute Lymphocyte Count 0.09 X10^3/uL (0.83-4.51); Basophil# 0.02 X10^3/uL; Basophil% 0.1 % (0-1); Hematocrit 25.2 % (37-47); Hemoglobin 8.7 g/dL (12.0-15.0); Lymphocyte # 0.09 X10^3/ul (0.83-4.51); Lymphocyte % 0.6 % (19-41); Mean Corp Hgb Conc 34.5 g/dL (32-36); Mean Corpuscular Hgb 28.2 pg (27.0-32.0); Mean Corpuscular Volume 81.6 fL (81-99); Mean Platelet Vol. 10.9 fl (6.2-12.0); Monocyte# 0.61 X10^3/uL; Monocyte% 4.4 % (0-10); NRBC Flagged by Analyzer 0.8 % (0-5); Neutrophil # 12.96 X10^3/uL (2.7-7.7); Neutrophil % 93.5 % (47-70); POSITIVE DIFFERENTIAL YES; POSITIVE MORPHOLOGY YES; Platelet Count 143 K/mm3 (150-450); RBC Distribution Width CV 21.7 % (11.6-14.6); RBC Distribution Width SD 63.2 fl (35.1-43.9); Red Blood Count 3.09 M/mm3 (4.2-5.4); White Blood Count 13.9 K/mm3 (4.4-11.0)
[2021-06-09 12:12] LABS: Differential Indicated SCAN CRITERIA MET
[2021-06-09 12:25] LABS: ALB/GLOB Ratio 0.5 RATIO (0.9-2.4); AST(SGOT) 40 U/L (15-37); Alanine Aminotransfer ALT/SGPT 32 U/L (13-56); Alkaline Phosphatase 118 U/L (45-117); Anion Gap 8 (5-15); BUN 50 mg/dL (7-18); BUN/Creat Ratio 35.2 RATIO (10-20); Chloride 122 mmol/L (98-107); Creatinine, Serum 1.42 mg/dL (0.55-1.02); EST Glomerular Filtration Rate 37 mL/min (>60); Est Glom Filt Rate - Afr Amer 45 mL/min (>60); Estimated Creatinine Clearance 21.22 ml/min; Globulin 4.4 g/dL (2.2-4.2); Glucose 150 mg/dL (74-106); Potassium 4.8 mmol/L (3.5-5.1); Protein, Total 6.4 g/dL (6.4-8.2); Sodium Level 148 mmol/L (136-145)
[2021-06-09 13:02] LABS: Anisocytosis 2+; Differential Comment SCANNED; Macrocytosis 1+; Microcytosis 1+
[2021-06-09] MEDS: Mineral Oil/Petrolatum Cr 1.75oz Bottle 1 APPLIC TOPICAL (18:44)
[2021-06-10] VITALS (13 sets, daily range): BP systolic 126–146; BP diastolic 73–88; PULSE 60–103; RESP 20–28; TEMP 36.1–37.1; O2SAT 90–97
[2021-06-10] MEDS: 0.45% Normal Saline 1,000 ML 100 ML IV ×3 (03:31→23:32)
[2021-06-10] MEDS: BMX LIQUID 180 ML PO ×3 (03:32→17:29)
--- NOTE | 2021-06-10 07:34 | PN.HOSP_ITS ---
Subjective Subjective Patient seen still remains restless. Per patient's daughter patient did get some rest with Benadryl at night. Benadryl subsequently changed to as needed. Objective Data Objective Data Vital Signs: Vital Signs Temp Pulse Resp BP Pulse Ox 97.2 F L 103 H 20 H 145/86 H 94 06/10/21 03:29 06/10/21 03:29 06/10/21 03:29 06/10/21 03:29 06/10/21 03:30 Oxygen Flow Rate (L/min) 15 Oxygen Delivery Method High Flow Weight: 46.4 kg Body Mass Index (BMI) 22.0 Intake & Output: Intake and Output for Last 24 Hours 06/08/21 06/09/21 06/10/21 23:59 23:59 23:59 Intake Total 1540 / 1540 2250 / 2250 578.33 / 578.33 Output Total 200 / 200 Balance 1340 / 1340 2250 / 2250 578.33 / 578.33 Medical Nutrition Assessment Dietitian: Malnutrition Criteria Met Start: 06/05/21 10:56 Freq: Status: Active Protocol: Document 06/05/21 10:56 RMA (Rec: 06/05/21 10:56 RMA [id number]) Nutrition Malnutrition Evidence of Malnutrition Exists Yes Malnutrition (severe): Acute Illness/Injury Evidenced By Suboptimal Energy Intake ( Severe),Weight Loss (Severe) Clinical Problem Acute Disease or Injury Related Malnutrition Etiology Severe protein-calorie malnutrition in the context of acute illness related to inadequate oral intake and dehydration/diarrhea Signs/Symptoms as evidenced by 3% wt loss x less than 1 week and oral intake meeting less than 50% estimated nutrition and fluid needs. Status Active Problem Recommendation Dietitian Recommendations/Changes Will add 240ml ensure clear BID w/ lunch and dinner. Advance PO as tolerated to Regular diet. Will add oral nutrition supplements as needed when PO established for adequacy. Lab / Micro Data Result Diagrams: 06/10/21 08:20 06/10/21 08:20 Labs: Laboratory Results - last 24 hr 06/09/21 11:49: WBC 13.9 H, RBC 3.09 L, Hgb 8.7 L, Hct 25.2 L, MCV 81.6, MCH 28.2, MCHC 34.5, RDW Std Deviation 63.2 H, RDW Coeff of [place] 21.7 H, Plt Count 143 L, MPV 10.9, Immature Gran % (Auto) 1.400 H, Neut % (Auto) 93.5 H, Lymph % (Auto) 0.6 L, [place] % (Auto) 4.4, Eos % (Auto) 0.0, Baso % (Auto) 0.1, Absolute Neuts (auto) 13.0 H, Absolute Lymphs (auto) 0.09 L, Nucleated RBC % 0.8, Differential Comment SCANNED, Anisocytosis 2+, Microcytosis 1+, Macrocytosis 1+ 06/09/21 11:49: Sodium 148 H, Potassium 4.8, Chloride 122 H, Carbon Dioxide 18.0 L, Anion Gap 8, BUN 50 H, Creatinine 1.42 H, Estim Creat Clear Calc 21.22, Est GFR (MDRD) Af Amer 45 L, Est GFR (MDRD) Non-Af 37 L, BUN/Creatinine Ratio 35.2 H , Glucose 150 H, Calcium 9.0, Total Bilirubin 0.40, AST 40 H, ALT 32, Alkaline Phosphatase 118 H, Total Protein 6.4, Albumin 2.0 L, Globulin 4.4 H, Albumin/Globulin Ratio 0.5 L Micro: Microbiology 06/06/21 09:28 Stool C. difficile DNA Amplification - Final Physical Exam Narrative GENERAL: Frail looking, restless HEENT: Atraumatic; EYES; Anicteric, Normal Conjunctiva NECK; supple, normal thyroid, RESPIRATORY: Diminished to auscultation CARDIOVASCULAR: Regular S1 S2, GI: soft, normoactive bowel sounds, : Perirectal erythema with denuded skin with some bleeding EXTREMITIES: No edema, no clubbing, MUSCULOSKELETAL: no muscle waisting NEURO: Awake; no lateralizing signs. SKIN: No Rash PSYCH; Flat affect Assessment & Plan Assessment/Plan (1) PADILLA (acute kidney injury): (2) COVID-19: PLAN: Patient is an 86-year-old lady who recently completed chemoradiation therapy for rectal CA presented with profuse diarrhea. Patient tested positive for COVID on 06/01/2021. Presented to the emergency department due to the persistent diarrhea. Patient was found to be in acute kidney injury on admission admitted to regular nursing floor for further management 1. Acute kidney injury ? Secondary to severe dehydration from profuse diarrhea admitted to the regular nursing floor where patient is currently being treated with IV fluids with subsequent monitoring with daily BMPs ordered -06/06/2021. Creatinine down to 1.28 -06/08/2021. Creatinine up to 1.79 following administration of Lasix. Patient also has hypernatremia for which increase oral intake of water has been encouraged -06/10/2021; creatinine down to 1.38 2. Acute COVID-19 infection ? Patient presented with diarrhea. This is being treated symptomatically. Currently not on any supplemental oxygen. -06/06/2021. Patient has been placed on supplemental oxygen necessitating patient status be changed from observation to full inpatient admit -06/07/2021 Patient seen had to be placed on supplemental oxygen in view of hypoxia. Steroids added to patient therapy. ? 06/09/2021. Patient remains on supplemental oxygen. 3. Diarrhea? Viral gastroenteritis from COVID versus effect from recent chemoradiation for rectal CA ? Patient be treated symptomatically and was given for patient to have a stool sample sent for C. 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 Patient recently completed chemoradiation ? Patient complaining of significant perirectal pain treated locally in addition to increasing patient systemic pain management 4. GERD ? On PPI did continue 5. Anemia - Secondary to chronic disorder monitoring H&H and transfuse if patient becomes symptomatic or hemoglobin falls below 7 -06/05/2021; hemoglobin down to 7.3 and order was given for iron infusion -06/08/2021; hemoglobin up to 8.9 6. DVT prophylaxis ? Lovenox dose adjusted for kidney function 7. Hypokalemia -Corrected per protocol -Repeat labs ordered for evaluation 8. Acute delirium Do suspect patient pain contributing moreover patient did receive Ativan. Will discontinue benzos and use Seroquel at night if needed -06/08/2019 patient to be prescribed Benadryl 25 mg p.o. nightly 9. Hypernatremia ? Secondary to decreased oral intake use of free water encouraged -06/10/2021; sodium down to 146 from 148 Charges/Coding Visit Charges Inpatient E&M: 23203 Subs Hosp L2
[2021-06-10 08:46] LABS: Absolute Lymphocyte Count 0.12 X10^3/uL (0.83-4.51); Absolute Neutrophil Count 11.7 X10^3/uL (2.0-7.7); Basophil# 0.02 X10^3/uL; Basophil% 0.2 % (0-1); Hematocrit 24.6 % (37-47); Hemoglobin 8.6 g/dL (12.0-15.0); Lymphocyte # 0.12 X10^3/ul (0.83-4.51); Mean Corpuscular Hgb 28.6 pg (27.0-32.0); Mean Corpuscular Volume 81.7 fL (81-99); Monocyte# 0.61 X10^3/uL; Monocyte% 4.8 % (0-10); Neutrophil % 92.6 % (47-70); POSITIVE DIFFERENTIAL YES; POSITIVE MORPHOLOGY YES; Platelet Count 131 K/mm3 (150-450); RBC Distribution Width SD 63.5 fl (35.1-43.9); Red Blood Count 3.01 M/mm3 (4.2-5.4); White Blood Count 12.6 K/mm3 (4.4-11.0)
[2021-06-10] MEDS: Enoxaparin 30 MG/0.3 ML Syringe SC (08:56)
[2021-06-10] MEDS: oxyCODONE 5 MG Tablet PO (08:56)
[2021-06-10] MEDS: NYSTATIN 500,000 UNIT/5 ML UDC 500000 UNIT PO ×2 (08:58→17:37)
[2021-06-10] MEDS: dexAMETHasone 4 MG/ML Vial 6 MG IV (08:59)
[2021-06-10] MEDS: Pantoprazole Sodium 40 MG Tablet PO (08:59)
[2021-06-10] MEDS: Iron Polysaccharide Complex 150 MG CAPSULE PO (08:59)
[2021-06-10 09:01] LABS: Differential Indicated SCAN CRITERIA MET
[2021-06-10] MEDS: Potassium Chloride Oral Tablet 10 MEQ 20 MEQ PO (09:03)
[2021-06-10 09:10] LABS: ALB/GLOB Ratio 0.5 RATIO (0.9-2.4); AST(SGOT) 35 U/L (15-37); Alanine Aminotransfer ALT/SGPT 34 U/L (13-56); Alkaline Phosphatase 119 U/L (45-117); Anion Gap 8 (5-15); BUN 50 mg/dL (7-18); BUN/Creat Ratio 36.2 RATIO (10-20); Calcium,Total 8.6 mg/dL (8.5-10.1); Chloride 119 mmol/L (98-107); Creatinine, Serum 1.38 mg/dL (0.55-1.02); EST Glomerular Filtration Rate 39 mL/min (>60); Est Glom Filt Rate - Afr Amer 47 mL/min (>60); Estimated Creatinine Clearance 21.83 ml/min; Globulin 4.4 g/dL (2.2-4.2); Glucose 116 mg/dL (74-106); Potassium 5.1 mmol/L (3.5-5.1); Protein, Total 6.4 g/dL (6.4-8.2); Sodium Level 146 mmol/L (136-145)
[2021-06-10 09:57] LABS: Anisocytosis 2+; Differential Comment SCANNED; Macrocytosis 1+; Microcytosis 1+
[2021-06-10] MEDS: DiphenhydrAMINE 25 MG Capsule PO (11:40)
[2021-06-10] MEDS: LORazepam 2 MG/ML Bottle 1 MG SL ×3 (13:00→23:41)
--- NOTE | 2021-06-10 13:08 | NURSING ---
Several times pt removing oxygen and restless in bed. Noted air hunger and respirations at 34. Nurse remains with pt to assist with pt compliance with oxygen. Poor po intake did not eat lunch. Pt is restless and continues aggitation. Prn benadryl given and is ineffective. Daughter in law Yohana is again updated and ok to give pr ativan. Medication is given and pt remains in bed while nurse is present. Pt respiration now at 28 and is slowly calming down. She continues to have non breather per maintenance of oxygen level. Pt continue to be restless in bed. Noted twitching of extremities intermittently.
[2021-06-10] MEDS: QUEtiapine 25 MG Tablet PO (13:56)
[2021-06-10] MEDS: LORazepam 2 MG/ML Syringe 0.5 MG IV (14:46)
[2021-06-10] MEDS: 0.9% Saline Lock 10 ML Syringe IV (14:47)
[2021-06-11] VITALS (14 sets, daily range): BP systolic 106–152; BP diastolic 59–96; PULSE 67–113; RESP 20–28; TEMP 36.2–36.9; O2SAT 87–100
[2021-06-11] MEDS: morphine (oral solution) 10MG/0.5ML Syringe 5 MG PO (00:24)
[2021-06-11] MEDS: LORazepam 2 MG/ML Bottle 1 MG SL ×4 (03:24→21:46)
[2021-06-11] MEDS: BMX LIQUID 180 ML PO (03:50)
[2021-06-11 07:23] LABS: Absolute Lymphocyte Count 0.15 X10^3/uL (0.83-4.51); Absolute Neutrophil Count 11.5 X10^3/uL (2.0-7.7); Basophil# 0.03 X10^3/uL; Basophil% 0.2 % (0-1); Hematocrit 27.2 % (37-47); Lymphocyte # 0.15 X10^3/ul (0.83-4.51); Lymphocyte % 1.2 % (19-41); Mean Corp Hgb Conc 33.1 g/dL (32-36); Mean Corpuscular Hgb 28.8 pg (27.0-32.0); Mean Corpuscular Volume 87.2 fL (81-99); Mean Platelet Vol. 12.3 fl (6.2-12.0); Monocyte# 0.64 X10^3/uL; Monocyte% 5.1 % (0-10); NRBC Flagged by Analyzer 1.2 % (0-5); Neutrophil # 11.53 X10^3/uL (2.7-7.7); Neutrophil % 91.6 % (47-70); POSITIVE DIFFERENTIAL YES; POSITIVE MORPHOLOGY YES; Platelet Count 111 K/mm3 (150-450); RBC Distribution Width CV 21.5 % (11.6-14.6); RBC Distribution Width SD 65.9 fl (35.1-43.9); Red Blood Count 3.12 M/mm3 (4.2-5.4); White Blood Count 12.6 K/mm3 (4.4-11.0)
[2021-06-11 07:26] LABS: Differential Indicated SCAN CRITERIA MET
[2021-06-11 07:44] LABS: ALB/GLOB Ratio 0.5 RATIO (0.9-2.4); AST(SGOT) 48 U/L (15-37); Alanine Aminotransfer ALT/SGPT 32 U/L (13-56); Albumin, Serum 2.1 g/dL (3.2-5.0); Alkaline Phosphatase 107 U/L (45-117); Anion Gap 8 (5-15); BUN 48 mg/dL (7-18); BUN/Creat Ratio 13.3 RATIO (10-20); Calcium,Total 8.6 mg/dL (8.5-10.1); Chloride 112 mmol/L (98-107); Creatinine, Serum 3.61 mg/dL (0.55-1.02); EST Glomerular Filtration Rate 13 mL/min (>60); Est Glom Filt Rate - Afr Amer 15 mL/min (>60); Estimated Creatinine Clearance 8.35 ml/min; Globulin 4.5 g/dL (2.2-4.2); Glucose 78 mg/dL (74-106); Magnesium 2.8 mg/dL (1.6-2.6); Potassium 4.9 mmol/L (3.5-5.1); Protein, Total 6.6 g/dL (6.4-8.2); Sodium Level 137 mmol/L (136-145)
--- NOTE | 2021-06-11 11:12 | PCM.PN.HOSP ---
Subjective Subjective She does not open her eyes this morning and she does appear to be uncomfortable though she is unable to communicate why. Per nursing staff she has had very little urine output therefore will have a Bower placed. Renal function has worsened to 3.61 this morning Objective Data Objective Data Vital Signs: Vital Signs Temp Pulse Resp BP Pulse Ox 98.5 F 107 H 28 H 152/88 H 87 06/11/21 08:32 06/11/21 08:32 06/11/21 10:00 06/11/21 08:32 06/11/21 08:32 Oxygen Flow Rate (L/min) 12 Oxygen Delivery Method Non-Rebreather Weight: 102 lb 4.712 oz Body Mass Index (BMI) 22.0 Intake & Output: Intake and Output for Last 24 Hours 06/10/21 06/11/21 06/12/21 03:59 03:59 03:59 Intake Total 2828.33 / 2828.33 2146.67 / 2146.67 Balance 2828.33 / 2828.33 2146.67 / 2146.67 Medical Nutrition Assessment Dietitian: Malnutrition Criteria Met Start: 06/05/21 10:56 Freq: Status: Active Protocol: Document 06/05/21 10:56 RMA (Rec: 06/05/21 10:56 RMA [id number]) Nutrition Malnutrition Evidence of Malnutrition Exists Yes Malnutrition (severe): Acute Illness/Injury Evidenced By Suboptimal Energy Intake ( Severe),Weight Loss (Severe) Clinical Problem Acute Disease or Injury Related Malnutrition Etiology Severe protein-calorie malnutrition in the context of acute illness related to inadequate oral intake and dehydration/diarrhea Signs/Symptoms as evidenced by 3% wt loss x less than 1 week and oral intake meeting less than 50% estimated nutrition and fluid needs. Status Active Problem Recommendation Dietitian Recommendations/Changes Will add 240ml ensure clear BID w/ lunch and dinner. Advance PO as tolerated to Regular diet. Will add oral nutrition supplements as needed when PO established for adequacy. Lab / Micro Data Result Diagrams: 06/11/21 06:00 06/11/21 06:00 Labs: Laboratory Results - last 24 hr 06/11/21 06:00: WBC 12.6 H, RBC 3.12 L, Hgb 9.0 L, Hct 27.2 L, MCV 87.2 D, MCH 28.8, MCHC 33.1 D, RDW Std Deviation 65.9 H, RDW Coeff of Alida 21.5 H, Plt Count 111 L, MPV 12.3 H, Immature Gran % (Auto) 1.900 H, Neut % (Auto) 91.6 H, Lymph % (Auto) 1.2 L, [place] % (Auto) 5.1, Eos % (Auto) 0.0, Baso % (Auto) 0.2, Absolute Neuts (auto) 11.5 H, Absolute Lymphs (auto) 0.15 L, Nucleated RBC % 1.2 06/11/21 06:00: Sodium 137, Potassium 4.9, Chloride 112 H, Carbon Dioxide 17.0 L, Anion Gap 8, BUN 48 H, Creatinine 3.61 H, Estim Creat Clear Calc 8.35, Est GFR (MDRD) Af Amer 15 L, Est GFR (MDRD) Non-Af 13 L, BUN/Creatinine Ratio 13.3, Glucose 78, Calcium 8.6, Magnesium 2.8 H, Total Bilirubin 0.50, AST 48 H, ALT 32, Alkaline Phosphatase 107, Total Protein 6.6, Albumin 2.1 L, Globulin 4.5 H, Albumin/Globulin Ratio 0.5 L Micro: Microbiology 06/06/21 09:28 Stool C. difficile DNA Amplification - Final Physical Exam Const General Appearance: in distress Positive for mild Orientation / Consciousness: confused and disoriented HEENT normocephalic and moist oral mucous membranes Eyes PERRL and conjunctivae normal Neck supple and no JVD Resp normal respiratory effort, no retractions and no use of accessory muscles Auscultation: rhonchi and diminished lung sounds; Negative for crackles, rales or wheezes Cardio regular rate, regular rhythm, S1 normal heart sound, S2 normal heart sound and no murmurs GI soft to palpation, non-tender and non-distended; Negative for hepatosplenomegaly Extremity no clubbing, cyanosis or edema Skin no rashes or lesions noted Neuro no focal motor deficits and no sensory deficits noted Psych affect normal Appearance: appropriate Assessment & Plan Assessment/Plan (1) PADILLA (acute kidney injury): (2) COVID-19: PLAN: 1. Acute kidney injury ? Secondary to severe dehydration from profuse diarrhea admitted to the regular nursing floor where patient is currently being treated with IV fluids with subsequent monitoring with daily BMPs ordered -06/06/2021. Creatinine down to 1.28 -06/08/2021. Creatinine up to 1.79 following administration of Lasix. Patient also has hypernatremia for which increase oral intake of water has been encouraged -06/10/2021; creatinine down to 1.38 ? 06/11/2021: Creatinine is now up to 3.61, will place a Bower for more accurate measurements and will discuss situation with family given the fact that she is a DNR CCA with COVID and undergoing chemotherapy for rectal cancer 2. Acute COVID-19 infection ? Patient presented with diarrhea. This is being treated symptomatically. Currently not on any supplemental oxygen. -06/06/2021. Patient has been placed on supplemental oxygen necessitating patient status be changed from observation to full inpatient admit -06/07/2021 Patient seen had to be placed on supplemental oxygen in view of hypoxia. Steroids added to patient therapy. ? 06/09/2021. Patient remains on supplemental oxygen. ? 06/11/2021: She is on 12 to 15 L of oxygen to maintain a sat of 90% 3. Diarrhea? Viral gastroenteritis from COVID versus effect from recent chemoradiation for rectal CA ? Patient be treated symptomatically and was given for patient to have a stool sample sent for C. difficile ? C. 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 Patient recently completed chemoradiation ? Patient complaining of significant perirectal pain treated locally in addition to increasing patient systemic pain management 4. GERD ? On PPI did continue 5. Anemia - Secondary to chronic disorder monitoring H&H and transfuse if patient becomes symptomatic or hemoglobin falls below 7 -06/05/2021; hemoglobin down to 7.3 and order was given for iron infusion -06/08/2021; hemoglobin up to 8.9 6. Hypokalemia -Corrected per protocol -Repeat labs ordered for evaluation 7. Acute delirium Do suspect patient pain contributing moreover patient did receive Ativan. Will discontinue benzos and use Seroquel at night if needed -06/08/2019 patient to be prescribed Benadryl 25 mg p.o. nightly 8. Hypernatremia ? Secondary to decreased oral intake use of free water encouraged -06/10/2021; sodium down to 146 from 148 ? 06/11/2021:: Sodium is 137 I did have to decrease her fluid secondary to rhonchi I did attempt to call the daughter who is a local physician however there was no answer we will attempt again later today DVT: Bushra Charges/Coding Visit Charges Inpatient E&M: 17077 Subs Hosp L2
[2021-06-11] MEDS: oxyCODONE 5 MG Tablet PO ×2 (11:40→23:17)
[2021-06-11] MEDS: Enoxaparin 30 MG/0.3 ML Syringe SC (11:40)
[2021-06-11] MEDS: NYSTATIN 500,000 UNIT/5 ML UDC 500000 UNIT PO ×3 (11:41→17:40)
[2021-06-11] MEDS: dexAMETHasone 4 MG/ML Vial 6 MG IV (11:41)
--- NOTE | 2021-06-11 12:22 | US_ITS ---
STUDY: RENAL ULTRASOUND - COMPLETE REASON FOR EXAM: Female, 86 years old. ARF evaluation TECHNIQUE: Ultrasound evaluation of the kidneys was performed with real-time and static chacko-scale imaging. COMPARISON: None. FINDINGS: RIGHT KIDNEY: with mild renal atrophy. The right kidney measures 7.8 cm x 5 cm x 4.4 cm. There is a normal cortex of the right kidney. The renal cortex measures 1.1 cm. There is no right renal mass or cyst. There are no right renal calculi. There is no right hydronephrosis. DISTAL RIGHT URETER: There is non-visualization of the distal right ureter. There is no demonstrated right ureterovesical junction calculus. There is no demonstrated right ureteral jet. LEFT KIDNEY: with mild renal atrophy. The left kidney measures 7.3 cm x 3.6 cm x 2.9 cm. There is diffuse thinning of the renal cortex. The renal cortex measures 0.4 cm. There is no left renal mass or cyst. There are no left renal calculi. There is no left hydronephrosis. DISTAL LEFT URETER: There is non-visualization of the distal left ureter. There is no demonstrated left ureterovesical junction calculus. There is no demonstrated left ureteral jet. BLADDER: A HANDY catheter is seen within an empty urinary bladder. US/Kidney and Bladder IMPRESSION: Bilateral renal atrophy worse on the left side. Electronically Signed: Vinay Leon MD at 14:53 EST , Service support ,
--- NOTE | 2021-06-11 12:45 | RAD_ITS ---
STUDY: X-RAY - ABDOMEN/PELVIS REASON FOR EXAM: Female, 86 years old. Kidney stone TECHNIQUE: Single AP view of the abdomen / pelvis. COMPARISON: None. FINDINGS: Patchy bibasilar pulmonary infiltrates. There is a moderate amount of colonic fecal material. The visualized liver, spleen and kidneys are grossly normal in size and morphology. Normal soft tissue structures. There are diffuse degenerative changes of the visualized lumbar spine. Levoscoliosis. RAD/Abdomen Single View (Portable) IMPRESSION: Moderate amount of fecal material is seen in the colon. Electronically Signed: Vinay Leon MD at 13:39 EST , Service support ,
[2021-06-11] MEDS: Furosemide 20 MG/2 ML VIAL IV (12:46)
[2021-06-11] MEDS: 0.9% Saline Lock 10 ML Syringe IV ×2 (12:46→22:02)
[2021-06-11] MEDS: Ipratropium/Albuterol Sulfate 3 ML AMPUL.NEB INHALATION ×2 (15:34→20:33)
[2021-06-11] MEDS: Bisacodyl 10 MG Suppository RC (16:50)
[2021-06-11] MEDS: Mineral Oil/Petrolatum Cr 1.75oz Bottle 1 APPLIC TOPICAL ×2 (16:52→22:00)
[2021-06-11 17:34] LABS: Urine Chloride 159 mmol/L (Not Establ.); Urine Sodium 122 mmol/L (Not Establ.)
[2021-06-12] VITALS (13 sets, daily range): BP systolic 134–148; BP diastolic 72–90; PULSE 74–132; RESP 20–28; TEMP 36.2–36.8; O2SAT 92–100
[2021-06-12] MEDS: BMX LIQUID 180 ML PO (03:10)
[2021-06-12 06:23] LABS: Absolute Lymphocyte Count 0.06 X10^3/uL (0.83-4.51); Absolute Neutrophil Count 7.2 X10^3/uL (2.0-7.7); Basophil# 0.01 X10^3/uL; Basophil% 0.1 % (0-1); Eosinophil# 0.01 X10^3/uL; Eosinophils% 0.1 % (0-5); Hematocrit 21.4 % (37-47); Hemoglobin 7.5 g/dL (12.0-15.0); Lymphocyte # 0.06 X10^3/ul (0.83-4.51); Lymphocyte % 0.8 % (19-41); Mean Corpuscular Hgb 29.3 pg (27.0-32.0); Mean Corpuscular Volume 83.6 fL (81-99); Mean Platelet Vol. 11.5 fl (6.2-12.0); Monocyte# 0.39 X10^3/uL; Monocyte% 4.9 % (0-10); NRBC Flagged by Analyzer 0.6 % (0-5); Neutrophil # 7.24 X10^3/uL (2.7-7.7); Neutrophil % 91.8 % (47-70); POSITIVE DIFFERENTIAL YES; POSITIVE MORPHOLOGY YES; Platelet Count 105 K/mm3 (150-450); RBC Distribution Width CV 22.3 % (11.6-14.6); Red Blood Count 2.56 M/mm3 (4.2-5.4); White Blood Count 7.9 K/mm3 (4.4-11.0)
[2021-06-12 06:37] LABS: Differential Indicated SCAN CRITERIA MET
[2021-06-12 06:45] LABS: Ovalocyte 2+; Poikilocytosis 2+
[2021-06-12 06:55] LABS: ALB/GLOB Ratio 0.5 RATIO (0.9-2.4); AST(SGOT) 32 U/L (15-37); Alanine Aminotransfer ALT/SGPT 25 U/L (13-56); Albumin, Serum 1.8 g/dL (3.2-5.0); Alkaline Phosphatase 104 U/L (45-117); Anion Gap 9 (5-15); BUN 42 mg/dL (7-18); BUN/Creat Ratio 32.3 RATIO (10-20); Calcium,Total 8.2 mg/dL (8.5-10.1); Chloride 115 mmol/L (98-107); EST Glomerular Filtration Rate 41 mL/min (>60); Est Glom Filt Rate - Afr Amer 50 mL/min (>60); Estimated Creatinine Clearance 23.18 ml/min; Globulin 3.9 g/dL (2.2-4.2); Glucose 91 mg/dL (74-106); Potassium 4.1 mmol/L (3.5-5.1); Protein, Total 5.7 g/dL (6.4-8.2); Sodium Level 145 mmol/L (136-145)
[2021-06-12] MEDS: oxyCODONE 5 MG Tablet PO (09:02)
[2021-06-12] MEDS: dexAMETHasone 4 MG/ML Vial 6 MG IV (09:06)
[2021-06-12] MEDS: 0.9% Saline Lock 10 ML Syringe IV ×2 (09:06→18:25)
[2021-06-12] MEDS: LORazepam 2 MG/ML Bottle 1 MG SL ×2 (09:17→14:22)
[2021-06-12] MEDS: Enoxaparin 30 MG/0.3 ML Syringe SC (12:24)
--- NOTE | 2021-06-12 13:13 | PCM.PN.HOSP ---
Subjective Subjective Appears more comfortable today but still requiring significant amount of oxygen. Renal function is much improved today with Lasix however family is concerned that she is getting dehydrated and she is now in sinus tachycardic Objective Data Objective Data Vital Signs: Vital Signs Temp Pulse Resp BP Pulse Ox 97.9 F 132 H 20 H 137/72 H 98 06/12/21 12:27 06/12/21 12:27 06/12/21 12:27 06/12/21 12:27 06/12/21 12:27 Oxygen Flow Rate (L/min) 15 Oxygen Delivery Method Non-Rebreather @ 15L/min Weight: 102 lb 4.712 oz Body Mass Index (BMI) 22.0 Intake & Output: Intake and Output for Last 24 Hours 06/11/21 06/12/21 06/13/21 03:59 03:59 03:59 Intake Total 2146.67 / 2146.67 1000 / 1000 0 / 0 Output Total 1195 / 1195 500 / 500 Balance 2146.67 / 2146.67 -195 / -195 -500 / -500 Medical Nutrition Assessment Dietitian: Malnutrition Criteria Met Start: 06/05/21 10:56 Freq: Status: Active Protocol: Document 06/12/21 12:12 RMA (Rec: 06/12/21 12:13 RMA [id number]) Nutrition Malnutrition Evidence of Malnutrition Exists Yes Malnutrition (severe): Acute Illness/Injury Evidenced By Suboptimal Energy Intake ( Severe),Weight Loss (Severe) Clinical Problem Acute Disease or Injury Related Malnutrition Etiology Severe protein-calorie malnutrition in the context of acute illness related to inadequate oral intake and dehydration/diarrhea Signs/Symptoms as evidenced by 3% wt loss x less than 1 week, NPO currently and oral intake meeting less than 50% estimated nutrition and fluid needs. Status Active Problem Recommendation Dietitian Recommendations/Changes Regular diet as tolerated w/ ensure clear at meals. Consider nutrition support given inadequate PO, wt loss and malnutrition. Lab / Micro Data Result Diagrams: 06/12/21 04:51 06/12/21 04:51 Labs: Laboratory Results - last 24 hr 06/11/21 17:00: Ur Random Sodium 122, Urine Potassium 28.0, Urine Chloride 159 06/12/21 04:51: WBC 7.9, RBC 2.56 L, Hgb 7.5 L, Hct 21.4 L, MCV 83.6, MCH 29.3, MCHC 35.0 D, RDW Std Deviation 66.0 H, RDW Coeff of Alida 22.3 H, Plt Count 105 L, MPV 11.5, Immature Gran % (Auto) 2.300 H, Neut % (Auto) 91.8 H, Lymph % (Auto) 0.8 L, [place] % (Auto) 4.9, Eos % (Auto) 0.1, Baso % (Auto) 0.1, Absolute Neuts (auto) 7.2, Absolute Lymphs (auto) 0.06 L, Nucleated RBC % 0.6, Poikilocytosis 2+, Ovalocytes 2+ 06/12/21 04:51: Sodium 145, Potassium 4.1, Chloride 115 H, Carbon Dioxide 21.0, Anion Gap 9, BUN 42 H, Creatinine 1.30 H, Estim Creat Clear Calc 23.18, Est GFR (MDRD) Af Amer 50 L, Est GFR (MDRD) Non-Af 41 L, BUN/Creatinine Ratio 32.3 H, Glucose 91, Calcium 8.2 L, Total Bilirubin 0.50, AST 32, ALT 25, Alkaline Phosphatase 104, Total Protein 5.7 L, Albumin 1.8 L, Globulin 3.9, Albumin/Globulin Ratio 0.5 L Micro: Microbiology 06/06/21 09:28 Stool C. difficile DNA Amplification - Final Radiography Diagnostic Testing: Radiology Impression Renal Ultrasound 06/11/21 12:22 IMPRESSION: Bilateral renal atrophy worse on the left side. Electronically Signed: Vinay Leon MD at 14:53 EST , Service support , KUB X-Ray 06/11/21 12:45 IMPRESSION: Moderate amount of fecal material is seen in the colon. Electronically Signed: Vinay Leon MD at 13:39 EST , Service support , Physical Exam Narrative Const No acute distress Orientation / Consciousness: confused and disoriented HEENT normocephalic and moist oral mucous membranes Eyes PERRL and conjunctivae normal Neck supple and no JVD Resp normal respiratory effort, no retractions and no use of accessory muscles Auscultation: Diminished lung sounds; Negative for crackles, rhonchi, rales or wheezes Cardio Tachycardia, regular rhythm, S1 normal heart sound, S2 normal heart sound and no murmurs GI soft to palpation, non-tender and non-distended; Negative for hepatosplenomegaly Extremity no clubbing, cyanosis or edema Skin no rashes or lesions noted Neuro no focal motor deficits and no sensory deficits noted Psych affect normal Appearance: appropriate Assessment & Plan Assessment/Plan (1) PADILLA (acute kidney injury): (2) COVID-19: PLAN: 1. Acute kidney injury ? Secondary to severe dehydration from profuse diarrhea admitted to the regular nursing floor where patient is currently being treated with IV fluids with subsequent monitoring with daily BMPs ordered -06/06/2021. Creatinine down to 1.28 -06/08/2021. Creatinine up to 1.79 following administration of Lasix. Patient also has hypernatremia for which increase oral intake of water has been encouraged -06/10/2021; creatinine down to 1.38 ? 06/11/2021: Creatinine is now up to 3.61, will place a Bower for more accurate measurements and will discuss situation with family given the fact that she is a DNR CCA with COVID and undergoing chemotherapy for rectal cancer ? 06/12/2021: Creatinine is back down to 1.30 unsure if this was lab error to have such a wide range of creatinine. KUB did not show a kidney stone and renal ultrasound demonstrated bilateral renal atrophy greater on the right than the left 2. Acute hypoxic respiratory failure secondary to COVID-19 pneumonia ? Patient presented with diarrhea. This is being treated symptomatically. Currently not on any supplemental oxygen. -06/06/2021. Patient has been placed on supplemental oxygen necessitating patient status be changed from observation to full inpatient admit -06/07/2021 Patient seen had to be placed on supplemental oxygen in view of hypoxia. Steroids added to patient therapy. ? 06/09/2021. Patient remains on supplemental oxygen. ? 06/11/2021: She is on 12 to 15 L of oxygen to maintain a sat of 90% ? 06/12/2021: She is requiring a significant amount of oxygen, it does not appear that this has anything to do with patient's level of agitation. Prognosis at this time is fair to poor given her her age as well as her cancer history. We will start her on some fluids again as she is now sinus tachycardic and I do not hear any lung sounds consistent with fluid overload. She did diurese fairly well yesterday after the dose of Lasix. 3. Diarrhea? Viral gastroenteritis from COVID versus effect from recent chemoradiation for rectal CA ? Patient be treated symptomatically and was given for patient to have a stool sample sent for C. difficile ? C. 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 Patient recently completed chemoradiation ? Patient complaining of significant perirectal pain treated locally in addition to increasing patient systemic pain management 4. GERD ? On PPI did continue 5. Anemia - Secondary to chronic disorder monitoring H&H and transfuse if patient becomes symptomatic or hemoglobin falls below 7 -06/05/2021; hemoglobin down to 7.3 and order was given for iron infusion -06/08/2021; hemoglobin up to 8.9 ? 06/12/2021: Hemoglobin is 7.5, will recheck this afternoon 6. Hypokalemia -Corrected per protocol -Repeat labs ordered for evaluation 7. Acute delirium Do suspect patient pain contributing moreover patient did receive Ativan. Will discontinue benzos and use Seroquel at night if needed -06/08/2019 patient to be prescribed Benadryl 25 mg p.o. nightly 8. Hypernatremia ? Secondary to decreased oral intake use of free water encouraged -06/10/2021; sodium down to 146 from 148 ? 06/11/2021: Sodium is 137 I did have to decrease her fluid secondary to rhonchi ? 06/12/2021: Sodium is now 145 DVT: Lovenox Charges/Coding Visit Charges Inpatient E&M: 50050 Subs Hosp L2
[2021-06-12] MEDS: 0.9% Normal Saline 1,000 ML 50 ML IV (13:41)
[2021-06-12] MEDS: NYSTATIN 500,000 UNIT/5 ML UDC 500000 UNIT PO ×2 (13:43→15:17)
[2021-06-12] MEDS: Morphine 2 MG/ML Syringe IV ×2 (18:25→21:59)
[2021-06-12] MEDS: Ipratropium/Albuterol Sulfate 3 ML AMPUL.NEB INHALATION (19:47)
[2021-06-12 20:49] LABS: Hematocrit 23.3 % (37-47); Hemoglobin 8.5 g/dL (12.0-15.0)
[2021-06-13] VITALS (16 sets, daily range): BP systolic 130–152; BP diastolic 64–117; PULSE 67–118; RESP 12–24; TEMP 36.3–36.7; O2SAT 94–100
[2021-06-13] MEDS: LORazepam 2 MG/ML Syringe 0.5 MG IV ×2 (00:22→07:54)
--- NOTE | 2021-06-13 00:52 | NURSING ---
PT VERY RESTLESS, ATIVAN GIVEN, PT WOULD NOT KEEP THE OXYGEN IN PLACE
[2021-06-13] MEDS: Morphine 2 MG/ML Syringe IV ×2 (01:27→07:54)
[2021-06-13 06:40] LABS: Absolute Lymphocyte Count 0.03 X10^3/uL (0.83-4.51); Absolute Neutrophil Count 6.6 X10^3/uL (2.0-7.7); Basophil# 0.01 X10^3/uL; Basophil% 0.1 % (0-1); Eosinophil# 0.14 X10^3/uL; Eosinophils% 1.9 % (0-5); Hematocrit 25.4 % (37-47); Hemoglobin 8.4 g/dL (12.0-15.0); Lymphocyte # 0.03 X10^3/ul (0.83-4.51); Lymphocyte % 0.4 % (19-41); Mean Corp Hgb Conc 33.1 g/dL (32-36); Mean Corpuscular Hgb 28.2 pg (27.0-32.0); Mean Corpuscular Volume 85.2 fL (81-99); Mean Platelet Vol. 11.1 fl (6.2-12.0); Monocyte% 4.1 % (0-10); NRBC Flagged by Analyzer 0.7 % (0-5); Neutrophil # 6.62 X10^3/uL (2.7-7.7); Neutrophil % 91.3 % (47-70); POSITIVE DIFFERENTIAL YES; POSITIVE MORPHOLOGY YES; Platelet Count 114 K/mm3 (150-450); RBC Distribution Width CV 22.5 % (11.6-14.6); RBC Distribution Width SD 67.7 fl (35.1-43.9); Red Blood Count 2.98 M/mm3 (4.2-5.4); White Blood Count 7.3 K/mm3 (4.4-11.0)
[2021-06-13 06:46] LABS: Differential Indicated SCAN CRITERIA MET
[2021-06-13 06:59] LABS: Anisocytosis 2+; Differential Comment SCANNED; Microcytosis 2+; Ovalocyte RARE
[2021-06-13 07:01] LABS: Anion Gap 8 (5-15); BUN 37 mg/dL (7-18); BUN/Creat Ratio 32.5 RATIO (10-20); Calcium,Total 8.4 mg/dL (8.5-10.1); Chloride 120 mmol/L (98-107); Creatinine, Serum 1.14 mg/dL (0.55-1.02); EST Glomerular Filtration Rate 48 mL/min (>60); Est Glom Filt Rate - Afr Amer 58 mL/min (>60); Estimated Creatinine Clearance 24.26 ml/min; Glucose 74 mg/dL (74-106); Potassium 4.1 mmol/L (3.5-5.1); Sodium Level 149 mmol/L (136-145)
[2021-06-13] MEDS: Enoxaparin 30 MG/0.3 ML Syringe SC (08:03)
[2021-06-13] MEDS: Bisacodyl 10 MG Suppository RC (08:05)
[2021-06-13] MEDS: NYSTATIN 500,000 UNIT/5 ML UDC 500000 UNIT PO ×2 (08:05→20:09)
[2021-06-13] MEDS: dexAMETHasone 4 MG/ML Vial 6 MG IV (08:06)
[2021-06-13] MEDS: QUEtiapine 25 MG Tablet PO ×2 (09:25→20:09)
[2021-06-13] MEDS: oxyCODONE 5 MG Tablet PO (09:25)
--- NOTE | 2021-06-13 09:26 | PN.HOSP_ITS ---
Subjective Subjective Still confused and not all that alert in the morning whenever I see her. No issues overnight. She does go between restlessness and and resting and when she is resting her oxygenation is obviously better Objective Data Objective Data Vital Signs: Vital Signs Temp Pulse Resp BP Pulse Ox 98.1 F 118 H 20 H 141/90 H 98 06/13/21 08:26 06/13/21 08:26 06/13/21 08:26 06/13/21 08:26 06/13/21 08:26 Oxygen Flow Rate (L/min) 15 Oxygen Delivery Method Non-Rebreather @ 15L/min Weight: 93 lb 14.671 oz Body Mass Index (BMI) 22.0 Intake & Output: Intake and Output for Last 24 Hours 06/12/21 06/13/21 06/14/21 03:59 03:59 03:59 Intake Total 1000 / 1000 0 / 0 Output Total 1195 / 1195 1000 / 1000 300 / 300 Balance -195 / -195 -1000 / -1000 -300 / -300 Medical Nutrition Assessment Dietitian: Malnutrition Criteria Met Start: 06/05/21 10:56 Freq: Status: Active Protocol: Document 06/12/21 12:12 RMA (Rec: 06/12/21 12:13 RMA [id number]) Nutrition Malnutrition Evidence of Malnutrition Exists Yes Malnutrition (severe): Acute Illness/Injury Evidenced By Suboptimal Energy Intake ( Severe),Weight Loss (Severe) Clinical Problem Acute Disease or Injury Related Malnutrition Etiology Severe protein-calorie malnutrition in the context of acute illness related to inadequate oral intake and dehydration/diarrhea Signs/Symptoms as evidenced by 3% wt loss x less than 1 week, NPO currently and oral intake meeting less than 50% estimated nutrition and fluid needs. Status Active Problem Recommendation Dietitian Recommendations/Changes Regular diet as tolerated w/ ensure clear at meals. Consider nutrition support given inadequate PO, wt loss and malnutrition. Lab / Micro Data Result Diagrams: 06/13/21 06:10 06/13/21 06:10 Labs: Laboratory Results - last 24 hr 06/12/21 20:36: Hgb 8.5 L, Hct 23.3 L 06/13/21 06:10: WBC 7.3, RBC 2.98 L, Hgb 8.4 L, Hct 25.4 L, MCV 85.2, MCH 28.2, MCHC 33.1 D, RDW Std Deviation 67.7 H, RDW Coeff of Alida 22.5 H, Plt Count 114 L , MPV 11.1, Immature Gran % (Auto) 2.200 H, Neut % (Auto) 91.3 H, Lymph % (Auto) 0.4 L, [place] % (Auto) 4.1, Eos % (Auto) 1.9, Baso % (Auto) 0.1, Absolute Neuts (auto) 6.6, Absolute Lymphs (auto) 0.03 L, Nucleated RBC % 0.7, Differential Comment SCANNED, Anisocytosis 2+, Microcytosis 2+, Ovalocytes RARE 06/13/21 06:10: Sodium 149 H, Potassium 4.1, Chloride 120 H, Carbon Dioxide 21.0, Anion Gap 8, BUN 37 H, Creatinine 1.14 H, Estim Creat Clear Calc 24.26, Est GFR (MDRD) Af Amer 58 L, Est GFR (MDRD) Non-Af 48 L, BUN/Creatinine Ratio 32.5 H, Glucose 74, Calcium 8.4 L Micro: Microbiology 06/06/21 09:28 Stool C. difficile DNA Amplification - Final Physical Exam Narrative Const No acute distress Orientation / Consciousness: confused and disoriented HEENT normocephalic and moist oral mucous membranes Eyes PERRL and conjunctivae normal Neck supple and no JVD Resp normal respiratory effort, no retractions and no use of accessory muscles Auscultation: Diminished lung sounds; Negative for crackles, rhonchi, rales or wheezes Cardio Tachycardia, regular rhythm, S1 normal heart sound, S2 normal heart sound and no murmurs GI soft to palpation, non-tender and non-distended; Negative for hepatosplenomegaly Extremity no clubbing, cyanosis or edema Skin no rashes or lesions noted Neuro no focal motor deficits and no sensory deficits noted Psych affect normal Appearance: appropriate Assessment & Plan Assessment/Plan (1) PADILLA (acute kidney injury): (2) COVID-19: PLAN: 1. Acute kidney injury ? Secondary to severe dehydration from profuse diarrhea admitted to the regular nursing floor where patient is currently being treated with IV fluids with subsequent monitoring with daily BMPs ordered -06/06/2021. Creatinine down to 1.28 -06/08/2021. Creatinine up to 1.79 following administration of Lasix. Patient also has hypernatremia for which increase oral intake of water has been encouraged -06/10/2021; creatinine down to 1.38 ? 06/11/2021: Creatinine is now up to 3.61, will place a Bower for more accurate measurements and will discuss situation with family given the fact that she is a DNR CCA with COVID and undergoing chemotherapy for rectal cancer ? 06/12/2021: Creatinine is back down to 1.30 unsure if this was lab error to have such a wide range of creatinine. KUB did not show a kidney stone and renal ultrasound demonstrated bilateral renal atrophy greater on the right than the left 2. Acute hypoxic respiratory failure secondary to COVID-19 pneumonia ? Patient presented with diarrhea. This is being treated symptomatically. Currently not on any supplemental oxygen. -06/06/2021. Patient has been placed on supplemental oxygen necessitating patient status be changed from observation to full inpatient admit -06/07/2021 Patient seen had to be placed on supplemental oxygen in view of hypoxia. Steroids added to patient therapy. ? 06/09/2021. Patient remains on supplemental oxygen. ? 06/11/2021: She is on 12 to 15 L of oxygen to maintain a sat of 90% ? 06/12/2021: She is requiring a significant amount of oxygen, it does not appear that this has anything to do with patient's level of agitation. Prognosis at this time is fair to poor given her her age as well as her cancer history. We will start her on some fluids again as she is now sinus tachycardic and I do not hear any lung sounds consistent with fluid overload. She did diurese fairly well yesterday after the dose of Lasix. ? 06/13/2021: No diuresis today we will continue to go between nasal cannula and nonrebreather as of blow-by given her restlessness at times where her oxygen drops 3. Diarrhea? Viral gastroenteritis from COVID versus effect from recent chemoradiation for rectal CA ? Patient be treated symptomatically and was given for patient to have a stool sample sent for C. difficile ? C. difficile was negative ? 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 Patient recently completed chemoradiation ? Patient complaining of significant perirectal pain treated locally in addition to increasing patient systemic pain management 4. GERD ? On PPI did continue 5. Anemia - Secondary to chronic disorder monitoring H&H and transfuse if patient becomes symptomatic or hemoglobin falls below 7 -06/05/2021; hemoglobin down to 7.3 and order was given for iron infusion -06/08/2021; hemoglobin up to 8.9 ? 06/12/2021: Hemoglobin is 7.5, will recheck this afternoon 6. Hypokalemia -Corrected per protocol -Repeat labs ordered for evaluation 7. Acute delirium Do suspect patient pain contributing moreover patient did receive Ativan. Will discontinue benzos and use Seroquel at night if needed -06/08/2019 patient to be prescribed Benadryl 25 mg p.o. nightly 8. Hypernatremia ? Secondary to decreased oral intake use of free water encouraged -06/10/2021; sodium down to 146 from 148 ? 06/11/2021: Sodium is 137 I did have to decrease her fluid secondary to rhonchi ? 06/12/2021: Sodium is now 145 ?06/13/2021: Sodium is now 149, will transition to D5W DVT: Lovenox Charges/Coding Visit Charges Inpatient E&M: 80178 Subs Hosp L2
--- NOTE | 2021-06-13 18:32 | NURSING ---
dr villa called and informed that pt is very restless at this time and all narcotics and ativan have been stopped today pt had been very comfortable today after doses of seroquel and oxy ir 5 mg-dr lindsay aware
[2021-06-13] MEDS: DiphenhydrAMINE 25 MG Capsule PO (22:02)
[2021-06-13] MEDS: Acetaminophen 325 MG Tablet 650 MG PO (22:02)
[2021-06-13] MEDS: Mineral Oil/Petrolatum Cr 1.75oz Bottle 1 APPLIC TOPICAL (22:06)
[2021-06-14] VITALS (10 sets, daily range): BP systolic 130–141; BP diastolic 61–85; PULSE 78–96; RESP 18–20; TEMP 36.1–36.7; O2SAT 8–96
[2021-06-14] MEDS: Acetaminophen 325 MG Tablet 650 MG PO ×2 (02:22→20:08)
[2021-06-14] MEDS: DiphenhydrAMINE 25 MG Capsule PO ×2 (02:22→20:08)
[2021-06-14 05:44] LABS: Absolute Lymphocyte Count 0.04 X10^3/uL (0.83-4.51); Absolute Neutrophil Count 5.2 X10^3/uL (2.0-7.7); Eosinophil# 0.05 X10^3/uL; Eosinophils% 0.9 % (0-5); Hematocrit 22.9 % (37-47); Hemoglobin 8.1 g/dL (12.0-15.0); Lymphocyte # 0.04 X10^3/ul (0.83-4.51); Lymphocyte % 0.7 % (19-41); Mean Corp Hgb Conc 35.4 g/dL (32-36); Mean Corpuscular Hgb 28.2 pg (27.0-32.0); Mean Corpuscular Volume 79.8 fL (81-99); Mean Platelet Vol. 11.1 fl (6.2-12.0); Monocyte# 0.31 X10^3/uL; Monocyte% 5.4 % (0-10); NRBC Flagged by Analyzer 0.7 % (0-5); Neutrophil # 5.23 X10^3/uL (2.7-7.7); Neutrophil % 91.9 % (47-70); POSITIVE DIFFERENTIAL YES; POSITIVE MORPHOLOGY YES; Platelet Count 109 K/mm3 (150-450); RBC Distribution Width CV 21.5 % (11.6-14.6); RBC Distribution Width SD 62.5 fl (35.1-43.9); Red Blood Count 2.87 M/mm3 (4.2-5.4); White Blood Count 5.7 K/mm3 (4.4-11.0)
[2021-06-14 05:47] LABS: Differential Indicated SCAN CRITERIA MET
[2021-06-14 06:21] LABS: Anion Gap 6 (5-15); BUN 38 mg/dL (7-18); BUN/Creat Ratio 34.5 RATIO (10-20); Calcium,Total 8.4 mg/dL (8.5-10.1); Chloride 119 mmol/L (98-107); Differential Comment SCANNED; EST Glomerular Filtration Rate 50 mL/min (>60); Est Glom Filt Rate - Afr Amer 61 mL/min (>60); Glucose 106 mg/dL (74-106); Potassium 3.7 mmol/L (3.5-5.1); Sodium Level 145 mmol/L (136-145)
[2021-06-14 06:22] LABS: Anisocytosis 2+; Hypochromasia 1+; Microcytosis 2+; Rouleaux RARE
[2021-06-14] MEDS: Bisacodyl 10 MG Suppository RC (08:09)
[2021-06-14] MEDS: dexAMETHasone 4 MG/ML Vial 6 MG IV (08:19)
--- NOTE | 2021-06-14 11:32 | PN.HOSP_ITS ---
Subjective Subjective Seems a little bit better today, she actually opened her eyes and was a little bit communicative Objective Data Objective Data Vital Signs: Vital Signs Temp Pulse Resp BP Pulse Ox 97.9 F 78 20 H 134/61 H 11 06/14/21 08:07 06/14/21 08:07 06/14/21 08:07 06/14/21 08:07 06/14/21 08:07 Oxygen Flow Rate (L/min) 8 Oxygen Delivery Method High Flow Weight: 94 lb 2.198 oz Body Mass Index (BMI) 22.0 Intake & Output: Intake and Output for Last 24 Hours 06/13/21 06/14/21 06/15/21 03:59 03:59 03:59 Intake Total 0 / 0 1920 / 1920 Output Total 1000 / 1000 1250 / 1250 Balance -1000 / -1000 670 / 670 Medical Nutrition Assessment Dietitian: Malnutrition Criteria Met Start: 06/05/21 10:56 Freq: Status: Active Protocol: Document 06/12/21 12:12 RMA (Rec: 06/12/21 12:13 RMA [id number]) Nutrition Malnutrition Evidence of Malnutrition Exists Yes Malnutrition (severe): Acute Illness/Injury Evidenced By Suboptimal Energy Intake ( Severe),Weight Loss (Severe) Clinical Problem Acute Disease or Injury Related Malnutrition Etiology Severe protein-calorie malnutrition in the context of acute illness related to inadequate oral intake and dehydration/diarrhea Signs/Symptoms as evidenced by 3% wt loss x less than 1 week, NPO currently and oral intake meeting less than 50% estimated nutrition and fluid needs. Status Active Problem Recommendation Dietitian Recommendations/Changes Regular diet as tolerated w/ ensure clear at meals. Consider nutrition support given inadequate PO, wt loss and malnutrition. Lab / Micro Data Result Diagrams: 06/14/21 05:35 06/14/21 05:35 Labs: Laboratory Results - last 24 hr 06/14/21 05:35: WBC 5.7, RBC 2.87 L, Hgb 8.1 L, Hct 22.9 L, MCV 79.8 L D, MCH 28.2, MCHC 35.4 D, RDW Std Deviation 62.5 H, RDW Coeff of Alida 21.5 H, Plt Count 109 L, MPV 11.1, Immature Gran % (Auto) 1.100 H, Neut % (Auto) 91.9 H, Lymph % (Auto) 0.7 L, [place] % (Auto) 5.4, Eos % (Auto) 0.9, Baso % (Auto) 0.0, Absolute Neuts (auto) 5.2, Absolute Lymphs (auto) 0.04 L, Nucleated RBC % 0.7, Differential Comment SCANNED, Hypochromasia 1+, Anisocytosis 2+, Microcytosis 2+, Rouleaux RARE 06/14/21 05:35: Sodium 145, Potassium 3.7, Chloride 119 H, Carbon Dioxide 20.0 L , Anion Gap 6, BUN 38 H, Creatinine 1.10 H, Estim Creat Clear Calc 25.20, Est GFR (MDRD) Af Amer 61, Est GFR (MDRD) Non-Af 50 L, BUN/Creatinine Ratio 34.5 H, Glucose 106, Calcium 8.4 L Micro: Microbiology 06/06/21 09:28 Stool C. difficile DNA Amplification - Final Physical Exam Narrative Const No acute distress Orientation / Consciousness: confused and disoriented HEENT normocephalic and moist oral mucous membranes Eyes PERRL and conjunctivae normal Neck supple and no JVD Resp normal respiratory effort, no retractions and no use of accessory muscles Auscultation: Diminished lung sounds; Negative for crackles, rhonchi, rales or wheezes Cardio Regular rate, regular rhythm, S1 normal heart sound, S2 normal heart sound and no murmurs GI soft to palpation, non-tender and non-distended; Negative for hepatosplenomegaly Extremity no clubbing, cyanosis or edema Skin no rashes or lesions noted Neuro no focal motor deficits and no sensory deficits noted Psych Flat affect Appearance: appropriate Assessment & Plan Assessment/Plan (1) PADILLA (acute kidney injury): (2) COVID-19: PLAN: 1. Acute kidney injury ? Secondary to severe dehydration from profuse diarrhea admitted to the regular nursing floor where patient is currently being treated with IV fluids with subsequent monitoring with daily BMPs ordered -06/06/2021. Creatinine down to 1.28 -06/08/2021. Creatinine up to 1.79 following administration of Lasix. Patient also has hypernatremia for which increase oral intake of water has been encouraged -06/10/2021; creatinine down to 1.38 ? 06/11/2021: Creatinine is now up to 3.61, will place a Bower for more accurate measurements and will discuss situation with family given the fact that she is a DNR CCA with COVID and undergoing chemotherapy for rectal cancer ? 06/12/2021: Creatinine is back down to 1.30 unsure if this was lab error to have such a wide range of creatinine. KUB did not show a kidney stone and renal ultrasound demonstrated bilateral renal atrophy greater on the right than the left 2. Acute hypoxic respiratory failure secondary to COVID-19 pneumonia ? Patient presented with diarrhea. This is being treated symptomatically. Currently not on any supplemental oxygen. -06/06/2021. Patient has been placed on supplemental oxygen necessitating pa tient status be changed from observation to full inpatient admit -06/07/2021 Patient seen had to be placed on supplemental oxygen in view of hypoxia. Steroids added to patient therapy. ? 06/09/2021. Patient remains on supplemental oxygen. ? 06/11/2021: She is on 12 to 15 L of oxygen to maintain a sat of 90% ? 06/12/2021: She is requiring a significant amount of oxygen, it does not appear that this has anything to do with patient's level of agitation. Prognosis at this time is fair to poor given her her age as well as her cancer history. We will start her on some fluids again as she is now sinus tachycardic and I do not hear any lung sounds consistent with fluid overload. She did diurese fairly well yesterday after the dose of Lasix. ? 06/13/2021: No diuresis today we will continue to go between nasal cannula and nonrebreather as of blow-by given her restlessness at times where her oxygen drops ? 06/14/2021: She is little bit more alert today, however still having some pain therefore we will put on a lidocaine patch as well as morphine. We will take away her Seroquel, lorazepam, and scheduled oxycodone. This is in an attempt to minimize any sedating effects these medications. She does have occasional moaning and agitation which if it is due to pain will be helped by the morphine otherwise she does not require any other type of intervention at this time. This was discussed with her [id number] who was in agreement and also a physician. 3. Diarrhea? Viral gastroenteritis from COVID versus effect from recent chemoradiation for rectal CA ? Patient be treated symptomatically and was given for patient to have a stool sample sent for C. difficile ? C. difficile was negative ? 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 Patient recently completed chemoradiation ? Patient complaining of significant perirectal pain treated locally in addition to increasing patient systemic pain management 4. GERD ? On PPI did continue 5. Anemia - Secondary to chronic disorder monitoring H&H and transfuse if patient becomes symptomatic or hemoglobin falls below 7 -06/05/2021; hemoglobin down to 7.3 and order was given for iron infusion -06/08/2021; hemoglobin up to 8.9 ? 06/12/2021: Hemoglobin is 7.5, will recheck this afternoon ?06/14/2021: Will send a Hemoccult as nursing noticed darker stools with a suppository. 6. Hypokalemia -Corrected per protocol -Repeat labs ordered for evaluation 7. Acute delirium Do suspect patient pain contributing moreover patient did receive Ativan. Will discontinue benzos and use Seroquel at night if needed -06/08/2019 patient to be prescribed Benadryl 25 mg p.o. nightly 8. Hypernatremia ? Secondary to decreased oral intake use of free water encouraged -06/10/2021; sodium down to 146 from 148 ? 06/11/2021: Sodium is 137 I did have to decrease her fluid secondary to rhonchi ? 06/12/2021: Sodium is now 145 ?06/13/2021: Sodium is now 149, will transition to D5W DVT: Lovenox Charges/Coding Visit Charges Inpatient E&M: 87797 Subs Hosp L2
[2021-06-14] MEDS: Lidocaine 5% Patch 1 PATCH TOPICAL (12:21)
[2021-06-14] MEDS: Morphine 2 MG/ML Syringe IV (12:22)
[2021-06-14] MEDS: NYSTATIN 500,000 UNIT/5 ML UDC 500000 UNIT PO (20:17)
[2021-06-15] VITALS (13 sets, daily range): BP systolic 137–196; BP diastolic 53–79; PULSE 82–111; RESP 18–20; TEMP 36.1–36.2; O2SAT 87–98
[2021-06-15] MEDS: Lidocaine 5% Patch 1 PATCH TOPICAL (10:13)
[2021-06-15] MEDS: NYSTATIN 500,000 UNIT/5 ML UDC 500000 UNIT PO ×4 (10:19→20:14)
[2021-06-15] MEDS: dexAMETHasone 4 MG/ML Vial 6 MG IV (13:31)
[2021-06-15 13:52] LABS: Absolute Lymphocyte Count 0.07 X10^3/uL (0.83-4.51); Basophil# 0.01 X10^3/uL; Basophil% 0.1 % (0-1); Eosinophils% 1.3 % (0-5); Hematocrit 25.8 % (37-47); Hemoglobin 8.8 g/dL (12.0-15.0); Lymphocyte # 0.07 X10^3/ul (0.83-4.51); Lymphocyte % 0.9 % (19-41); Mean Corp Hgb Conc 34.1 g/dL (32-36); Mean Corpuscular Hgb 28.5 pg (27.0-32.0); Mean Corpuscular Volume 83.5 fL (81-99); Mean Platelet Vol. 10.9 fl (6.2-12.0); Monocyte# 0.33 X10^3/uL; Monocyte% 4.3 % (0-10); NRBC Flagged by Analyzer 0.7 % (0-5); Neutrophil # 6.97 X10^3/uL (2.7-7.7); POSITIVE DIFFERENTIAL YES; POSITIVE MORPHOLOGY YES; Platelet Count 146 K/mm3 (150-450); RBC Distribution Width CV 22.1 % (11.6-14.6); RBC Distribution Width SD 66.7 fl (35.1-43.9); Red Blood Count 3.09 M/mm3 (4.2-5.4); White Blood Count 7.6 K/mm3 (4.4-11.0)
[2021-06-15 13:53] LABS: Differential Indicated SCAN CRITERIA MET
[2021-06-15 14:04] LABS: Anion Gap 7 (5-15); BUN 39 mg/dL (7-18); Calcium,Total 8.8 mg/dL (8.5-10.1); Chloride 118 mmol/L (98-107); Creatinine, Serum 1.22 mg/dL (0.55-1.02); EST Glomerular Filtration Rate 45 mL/min (>60); Est Glom Filt Rate - Afr Amer 54 mL/min (>60); Estimated Creatinine Clearance 22.73 ml/min; Glucose 144 mg/dL (74-106); Potassium 3.6 mmol/L (3.5-5.1); Sodium Level 148 mmol/L (136-145)
--- NOTE | 2021-06-15 16:23 | PN.HOSP_ITS ---
Subjective Subjective Much more alert today however she is still confused. She was trying to eat the paper towel. Objective Data Objective Data Vital Signs: Vital Signs Temp Pulse Resp BP Pulse Ox 97.2 F L 97 18 196/79 H 94 06/15/21 14:45 06/15/21 14:46 06/15/21 14:45 06/15/21 14:45 06/15/21 14:45 Oxygen Flow Rate (L/min) 3 Oxygen Delivery Method Room Air Weight: 94 lb 2.198 oz Body Mass Index (BMI) 22.0 Intake & Output: Intake and Output for Last 24 Hours 06/14/21 06/15/21 06/16/21 03:59 03:59 03:59 Intake Total 1920 / 1920 905.5 / 905.5 Output Total 1250 / 1250 300 / 300 450 / 450 Balance 670 / 670 605.5 / 605.5 -450 / -450 Medical Nutrition Assessment Dietitian: Malnutrition Criteria Met Start: 06/05/21 10:5 6 Freq: Status: Active Protocol: Document 06/12/21 12:12 RMA (Rec: 06/12/21 12:13 RMA [id number]) Nutrition Malnutrition Evidence of Malnutrition Exists Yes Malnutrition (severe): Acute Illness/Injury Evidenced By Suboptimal Energy Intake ( Severe),Weight Loss (Severe) Clinical Problem Acute Disease or Injury Related Malnutrition Etiology Severe protein-calorie malnutrition in the context of acute illness related to inadequate oral intake and dehydration/diarrhea Signs/Symptoms as evidenced by 3% wt loss x less than 1 week, NPO currently and oral intake meeting less than 50% estimated nutrition and fluid needs. Status Active Problem Recommendation Dietitian Recommendations/Changes Regular diet as tolerated w/ ensure clear at meals. Consider nutrition support given inadequate PO, wt loss and malnutrition. Lab / Micro Data Result Diagrams: 06/15/21 13:45 06/15/21 13:45 Labs: Laboratory Results - last 24 hr 06/15/21 13:45: WBC 7.6, RBC 3.09 L, Hgb 8.8 L, Hct 25.8 L, MCV 83.5, MCH 28.5, MCHC 34.1, RDW Std Deviation 66.7 H, RDW Coeff of Alida 22.1 H, Plt Count 146 L, MPV 10.9, Immature Gran % (Auto) 1.400 H, Neut % (Auto) 92.0 H, Lymph % (Auto) 0.9 L, [place] % (Auto) 4.3, Eos % (Auto) 1.3, Baso % (Auto) 0.1, Absolute Neuts (auto) 7.0, Absolute Lymphs (auto) 0.07 L, Nucleated RBC % 0.7 06/15/21 13:45: Sodium 148 H, Potassium 3.6, Chloride 118 H, Carbon Dioxide 23.0, Anion Gap 7, BUN 39 H, Creatinine 1.22 H, Estim Creat Clear Calc 22.73, Est GFR (MDRD) Af Amer 54 L, Est GFR (MDRD) Non-Af 45 L, BUN/Creatinine Ratio 32.0 H, Glucose 144 H, Calcium 8.8 Micro: Microbiology 06/14/21 12:30 Stool Stool Occult Blood (CATHIE) - Final Occult Blood Positive 06/06/21 09:28 Stool C. difficile DNA Amplification - Final Physical Exam Narrative Const Alert, no acute distress Orientation / Consciousness: confused and disoriented HEENT normocephalic and moist oral mucous membranes Eyes PERRL and conjunctivae normal Neck supple and no JVD Resp normal respiratory effort, no retractions and no use of accessory muscles Auscultation: Diminished lung sounds; Negative for crackles, rhonchi, rales or wheezes Cardio Regular rate, regular rhythm, S1 normal heart sound, S2 normal heart sound and no murmurs GI soft to palpation, non-tender and non-distended; Negative for hepatosplenomegaly Extremity no clubbing, cyanosis or edema Skin no rashes or lesions noted Neuro no focal motor deficits and no sensory deficits noted Psych Flat affect Appearance: appropriate Assessment & Plan Assessment/Plan (1) PADILLA (acute kidney injury): (2) COVID-19: PLAN: 1. Acute kidney injury ? Secondary to severe dehydration from profuse diarrhea admitted to the regular nursing floor where patient is currently being treated with IV fluids with subsequent monitoring with daily BMPs ordered -06/06/2021. Creatinine down to 1.28 -06/08/2021. Creatinine up to 1.79 following administration of Lasix. Patient also has hypernatremia for which increase oral intake of water has been encouraged -06/10/2021; creatinine down to 1.38 ? 06/11/2021: Creatinine is now up to 3.61, will place a Bower for more accurate measurements and will discuss situation with family given the fact that she is a DNR CCA with COVID and undergoing chemotherapy for rectal cancer ? 06/12/2021: Creatinine is back down to 1.30 unsure if this was lab error to have such a wide range of creatinine. KUB did not show a kidney stone and renal ultrasound demonstrated bilateral renal atrophy greater on the right than the left ? 06/15/2021: Midline was put in secondary to losing her IV yesterday. Continue with D5W 2. Acute hypoxic respiratory failure secondary to COVID-19 pneumonia ? Patient presented with diarrhea. This is being treated symptomatically. Currently not on any supplemental oxygen. -06/06/2021. Patient has been placed on supplemental oxygen necessitating p atient status be changed from observation to full inpatient admit -06/07/2021 Patient seen had to be placed on supplemental oxygen in view of hypoxia. Steroids added to patient therapy. ? 06/09/2021. Patient remains on supplemental oxygen. ? 06/11/2021: She is on 12 to 15 L of oxygen to maintain a sat of 90% ? 06/12/2021: She is requiring a significant amount of oxygen, it does not appear that this has anything to do with patient's level of agitation. Prognosis at this time is fair to poor given her her age as well as her cancer history. We will start her on some fluids again as she is now sinus tachycardic and I do not hear any lung sounds consistent with fluid overload. She did diurese fairly well yesterday after the dose of Lasix. ? 06/13/2021: No diuresis today we will continue to go between nasal cannula and nonrebreather as of blow-by given her restlessness at times where her oxygen drops ? 06/14/2021: She is little bit more alert today, however still having some pain therefore we will put on a lidocaine patch as well as morphine. We will take away her Seroquel, lorazepam, and scheduled oxycodone. This is in an attempt to minimize any sedating effects these medications. She does have occasional moaning and agitation which if it is due to pain will be helped by the morphine otherwise she does not require any other type of intervention at this time. This was discussed with her [id number] who was in agreement and also a physician. ? 06/15/2021: Much more alert today, she is down 2 to 4 L nasal cannula. This family would still like to take her home when able we will do an ambulatory pulse ox today and see how she does 3. Diarrhea? Viral gastroenteritis from COVID versus effect from recent chemoradiation for rectal CA ? Patient be treated symptomatically and was given for patient to have a stool sample sent for C. difficile ? C. difficile was negative ? 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 Patient recently completed chemoradiation ? Patient complaining of significant perirectal pain treated locally in addition to increasing patient systemic pain management 4. GERD ? On PPI did continue 5. Anemia - Secondary to chronic disorder monitoring H&H and transfuse if patient becomes symptomatic or hemoglobin falls below 7 -06/05/2021; hemoglobin down to 7.3 and order was given for iron infusion -06/08/2021; hemoglobin up to 8.9 ? 06/12/2021: Hemoglobin is 7.5, will recheck this afternoon ?06/14/2021: Will send a Hemoccult as nursing noticed darker stools with a suppository. 6. Hypokalemia -Corrected per protocol -Repeat labs ordered for evaluation 7. Acute delirium Do suspect patient pain contributing moreover patient did receive Ativan. Will discontinue benzos and use Seroquel at night if needed -06/08/2019 patient to be prescribed Benadryl 25 mg p.o. nightly 8. Hypernatremia ? Secondary to decreased oral intake use of free water encouraged -06/10/2021; sodium down to 146 from 148 ? 06/11/2021: Sodium is 137 I did have to decrease her fluid secondary to rhonchi ? 06/12/2021: Sodium is now 145 ?06/13/2021: Sodium is now 149, will transition to D5W DVT: Lovenox Charges/Coding Visit Charges Inpatient E&M: 13057 Subs Hosp L2
--- NOTE | 2021-06-15 16:27 | CASEMGMT ---
MIKEY WISDOM in to pt room, dtr at bedside, discussed dc planning. Pt dtr agreeable to HHC therapy. She does not feel the patient will need nursing. Patient/dtr was provided a list of HHC providers including quality and resource use data and consistent with the patient?s preferred geographic region, medical needs, and insurance network. Preferred choice is [facility], [facility] and [facility] in no order. TC to [facility] and [facility], neither are able to take the [facility]. TC to Abhishek at [facility], referral accepted. Faxed referral at this time. Green sheet on the chart for O2 and HHC. Notified pt dtr of acceptance.
[2021-06-15] MEDS: Acetaminophen 650 MG/20 ML UDC PO (20:10)
[2021-06-16] VITALS (12 sets, daily range): BP systolic 118–147; BP diastolic 59–81; PULSE 81–130; RESP 18–20; TEMP 36.1–37.2; O2SAT 92–97
[2021-06-16] MEDS: Pantoprazole Sodium 40 MG Tablet PO ×2 (03:30→09:31)
--- NOTE | 2021-06-16 06:42 | NURSING ---
0330. Pts daughter called out for protonix and gas x because the pt appears gassy per daughter. educated that simethicone and mylanta are the only things we have ordered in addition to the protonix, by the time this RN was in the room and gowned up, pts daughter states she had already given the pt an over the counter gas x. This RN noticed a bin of what appears to be over the counter lotions and ointments for pts coccyx. this RN asked pts daughter if there was any other medications in the bin other than gas x, pts daughter states no. daughter educated to not give medications that are not prescribed by us, for risk of double dosing, pts daughter agreeable. charge nurse Oliva updated and informed. protonix scanned and given at this time.
[2021-06-16] MEDS: Lidocaine 5% Patch 1 PATCH TOPICAL (09:30)
[2021-06-16] MEDS: NYSTATIN 500,000 UNIT/5 ML UDC 500000 UNIT PO ×4 (09:31→21:31)
[2021-06-16] MEDS: Magnesium Hydroxide 30 ML UDC PO (09:31)
[2021-06-16] MEDS: Iron Polysaccharide Complex 150 MG CAPSULE PO (09:33)
[2021-06-16] MEDS: Enoxaparin 30 MG/0.3 ML Syringe SC (09:33)
[2021-06-16] MEDS: Bisacodyl 10 MG Suppository RC (09:33)
[2021-06-16 09:55] LABS: Absolute Lymphocyte Count 0.11 X10^3/uL (0.83-4.51); Absolute Neutrophil Count 7.8 X10^3/uL (2.0-7.7); Basophil# 0.01 X10^3/uL; Basophil% 0.1 % (0-1); Eosinophil# 0.11 X10^3/uL; Eosinophils% 1.3 % (0-5); Hematocrit 23.1 % (37-47); Hemoglobin 8.1 g/dL (12.0-15.0); Lymphocyte # 0.11 X10^3/ul (0.83-4.51); Lymphocyte % 1.3 % (19-41); Mean Corp Hgb Conc 35.1 g/dL (32-36); Mean Corpuscular Volume 82.8 fL (81-99); Mean Platelet Vol. 11.9 fl (6.2-12.0); Monocyte# 0.36 X10^3/uL; Monocyte% 4.2 % (0-10); NRBC Flagged by Analyzer 0.7 % (0-5); Neutrophil # 7.78 X10^3/uL (2.7-7.7); Neutrophil % 90.8 % (47-70); POSITIVE DIFFERENTIAL YES; POSITIVE MORPHOLOGY YES; Platelet Count 133 K/mm3 (150-450); RBC Distribution Width CV 21.6 % (11.6-14.6); Red Blood Count 2.79 M/mm3 (4.2-5.4); White Blood Count 8.6 K/mm3 (4.4-11.0)
[2021-06-16 09:56] LABS: Differential Indicated SCAN CRITERIA MET
[2021-06-16 10:12] LABS: Anisocytosis 1+; Hypochromasia 3+; Microcytosis 1+; Platelet Estimate SLT DEC (ADEQ); Polychromasia 1+
[2021-06-16 10:17] LABS: Anion Gap 6 (5-15); BUN 37 mg/dL (7-18); BUN/Creat Ratio 32.5 RATIO (10-20); Calcium,Total 8.2 mg/dL (8.5-10.1); Chloride 110 mmol/L (98-107); Creatinine, Serum 1.14 mg/dL (0.55-1.02); EST Glomerular Filtration Rate 48 mL/min (>60); Est Glom Filt Rate - Afr Amer 58 mL/min (>60); Estimated Creatinine Clearance 24.54 ml/min; Glucose 122 mg/dL (74-106); Potassium 3.8 mmol/L (3.5-5.1); Sodium Level 140 mmol/L (136-145)
--- NOTE | 2021-06-16 10:54 | PCM.PN.HOSP ---
Subjective Subjective Much more alert but still disoriented. She does become of the language and it is hard to tell when she is being incoherent and when she is speaking another language. She does have appropriate responses to questions at times Objective Data Objective Data Vital Signs: Vital Signs Temp Pulse Resp BP Pulse Ox 98.3 F 81 18 131/81 H 97 06/16/21 09:58 06/16/21 09:58 06/16/21 09:58 06/16/21 09:58 06/16/21 09:58 Oxygen Flow Rate (L/min) 2 Oxygen Delivery Method Nasal Cannula Weight: 95 lb Body Mass Index (BMI) 22.0 Intake & Output: Intake and Output for Last 24 Hours 06/15/21 06/16/21 06/17/21 03:59 03:59 03:59 Intake Total 905.5 / 905.5 698.33 / 698.33 Output Total 300 / 300 630 / 630 150 / 150 Balance 605.5 / 605.5 68.33 / 68.33 -150 / -150 Medical Nutrition Assessment Dietitian: Malnutrition Criteria Met Start: 06/05/21 10:56 Freq: Status: Active Protocol: Document 06/12/21 12:12 RMA (Rec: 06/12/21 12:13 RMA [id number]) Nutrition Malnutrition Evidence of Malnutrition Exists Yes Malnutrition (severe): Acute Illness/Injury Evidenced By Suboptimal Energy Intake ( Severe),Weight Loss (Severe) Clinical Problem Acute Disease or Injury Related Malnutrition Etiology Severe protein-calorie malnutrition in the context of acute illness related to inadequate oral intake and dehydration/diarrhea Signs/Symptoms as evidenced by 3% wt loss x less than 1 week, NPO currently and oral intake meeting less than 50% estimated nutrition and fluid needs. Status Active Problem Recommendation Dietitian Recommendations/Changes Regular diet as tolerated w/ ensure clear at meals. Consider nutrition support given inadequate PO, wt loss and malnutrition. Lab / Micro Data Result Diagrams: 06/16/21 09:45 06/16/21 09:45 Labs: Laboratory Results - last 24 hr 06/15/21 13:45: WBC 7.6, RBC 3.09 L, Hgb 8.8 L, Hct 25.8 L, MCV 83.5, MCH 28.5, MCHC 34.1, RDW Std Deviation 66.7 H, RDW Coeff of Alida 22.1 H, Plt Count 146 L, MPV 10.9, Immature Gran % (Auto) 1.400 H, Neut % (Auto) 92.0 H, Lymph % (Auto) 0.9 L, [place] % (Auto) 4.3, Eos % (Auto) 1.3, Baso % (Auto) 0.1, Absolute Neuts (auto) 7.0, Absolute Lymphs (auto) 0.07 L, Nucleated RBC % 0.7 06/15/21 13:45: Sodium 148 H, Potassium 3.6, Chloride 118 H, Carbon Dioxide 23.0, Anion Gap 7, BUN 39 H, Creatinine 1.22 H, Estim Creat Clear Calc 22.73, Est GFR (MDRD) Af Amer 54 L, Est GFR (MDRD) Non-Af 45 L, BUN/Creatinine Ratio 32.0 H, Glucose 144 H, Calcium 8.8 06/16/21 09:45: WBC 8.6, RBC 2.79 L, Hgb 8.1 L, Hct 23.1 L, MCV 82.8, MCH 29.0, MCHC 35.1, RDW Std Deviation 64.0 H, RDW Coeff of [place]ida 21.6 H, Plt Count 133 L, MPV 11.9, Immature Gran % (Auto) 2.300 H, Neut % (Auto) 90.8 H, Lymph % (Auto) 1.3 L, [place] % (Auto) 4.2, Eos % (Auto) 1.3, Baso % (Auto) 0.1, Absolute Neuts (auto) 7.8 H, Absolute Lymphs (auto) 0.11 L, Nucleated RBC % 0.7, Platelet Estimate SLT DEC, Polychromasia 1+, Hypochromasia 3+, Anisocytosis 1+, Microcytosis 1+ 06/16/21 09:45: Sodium 140, Potassium 3.8, Chloride 110 H, Carbon Dioxide 24.0, Anion Gap 6, BUN 37 H, Creatinine 1.14 H, Estim Creat Clear Calc 24.54, Est GFR (MDRD) Af Amer 58 L, Est GFR (MDRD) Non-Af 48 L, BUN/Creatinine Ratio 32.5 H, Glucose 122 H, Calcium 8.2 L Micro: Microbiology 06/14/21 12:30 Stool Stool Occult Blood (CATHIE) - Final Occult Blood Positive 06/06/21 09:28 Stool C. difficile DNA Amplification - Final Physical Exam Narrative Const Alert, no acute distress Orientation / Consciousness: confused and disoriented HEENT normocephalic and moist oral mucous membranes Eyes PERRL and conjunctivae normal Neck supple and no JVD Resp normal respiratory effort, no retractions and no use of accessory muscles Auscultation: Diminished lung sounds; Negative for crackles, rhonchi, rales or wheezes Cardio Regular rate, regular rhythm, S1 normal heart sound, S2 normal heart sound and no murmurs GI soft to palpation, non-tender and non-distended; Negative for hepatosplenomegaly Extremity no clubbing, cyanosis or edema Skin no rashes or lesions noted Neuro no focal motor deficits and no sensory deficits noted Psych Flat affect Appearance: appropriate Assessment & Plan Assessment/Plan (1) PADILLA (acute kidney injury): (2) COVID-19: PLAN: 1. Acute kidney injury ? Secondary to severe dehydration from profuse diarrhea admitted to the regular nursing floor where patient is currently being treated with IV fluids with subsequent monitoring with daily BMPs ordered -06/06/2021. Creatinine down to 1.28 -06/08/2021. Creatinine up to 1.79 following administration of Lasix. Patient also has hypernatremia for which increase oral intake of water has been encouraged -06/10/2021; creatinine down to 1.38 ? 06/11/2021: Creatinine is now up to 3.61, will place a Bower for more accurate measurements and will discuss situation with family given the fact that she is a DNR CCA with COVID and undergoing chemotherapy for rectal cancer ? 06/12/2021: Creatinine is back down to 1.30 unsure if this was lab error to have such a wide range of creatinine. KUB did not show a kidney stone and renal ultrasound demonstrated bilateral renal atrophy greater on the right than the left ? 06/15/2021: Midline was put in secondary to losing her IV yesterday. Continue with D5W ?06/16/2021: Renal function is better now that she has been midline and and she is on the D5W, sodium is much better controlled as well. Given that she is alert hopefully she will start being able to eat and drink enough or we can discontinue the IV fluids. 2. Acute hypoxic respiratory failure secondary to COVID-19 pneumonia ? Patient presented with diarrhea. This is being treated symptomatically. Currently not on any supplemental oxygen. -06/06/2021. Patient has been placed on supplemental oxygen necessitating patient status be changed from observation to full inpatient admit -06/07/2021 Patient seen had to be placed on supplemental oxygen in view of hypoxia. Steroids added to patient therapy. ? 06/09/2021. Patient remains on supplemental oxygen. ? 06/11/2021: She is on 12 to 15 L of oxygen to maintain a sat of 90% ? 06/12/2021: She is requiring a significant amount of oxygen, it does not appear that this has anything to do with patient's level of agitation. Prognosis at this time is fair to poor given her her age as well as her cancer history. We will start her on some fluids again as she is now sinus tachycardic and I do not hear any lung sounds consistent with fluid overload. She did diurese fairly well yesterday after the dose of Lasix. ? 06/13/2021: No diuresis today we will continue to go between nasal cannula and nonrebreather as of blow-by given her restlessness at times where her oxygen drops ? 06/14/2021: She is little bit more alert today, however still having some pain therefore we will put on a lidocaine patch as well as morphine. We will take away her Seroquel, lorazepam, and scheduled oxycodone. This is in an attempt to minimize any sedating effects these medications. She does have occasional moaning and agitation which if it is due to pain will be helped by the morphine otherwise she does not require any other type of intervention at this time. This was discussed with her [id number] who was in agreement and also a physician. ? 06/15/2021: Much more alert today, she is down 2 to 4 L nasal cannula. This family would still like to take her home when able we will do an ambulatory pulse ox today and see how she does ? 06/16/2021: We will try to get an ambulatory pulse ox to see how much oxygen she would need with even minimal activity and also to figure out what oxygen level she would need while sleeping. 3. Diarrhea? Viral gastroenteritis from COVID versus effect from recent chemoradiation for rectal CA ? Patient be treated symptomatically and was given for patient to have a stool sample sent for C. difficile ? C. difficile was negative ? 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 Patient recently completed chemoradiation ? Patient complaining of significant perirectal pain treated locally in addition to increasing patient systemic pain management 4. GERD ? On PPI did continue 5. Anemia - Secondary to chronic disorder monitoring H&H and transfuse if patient becomes symptomatic or hemoglobin falls below 7 -06/05/2021; hemoglobin down to 7.3 and order was given for iron infusion -06/08/2021; hemoglobin up to 8.9 ? 06/12/2021: Hemoglobin is 7.5, will recheck this afternoon ?06/14/2021: Will send a Hemoccult as nursing noticed darker stools with a suppository. ? 06/16/2021: Hemoccult is positive however she does have significant excoriations secondary to the radiation for her rectal cancer. Hemoglobin is stable so therefore we will discontinue to monitor and she will need to follow-up as an outpatient for this issue. 6. Hypokalemia -Corrected per protocol -Repeat labs ordered for evaluation 7. Acute delirium Do suspect patient pain contributing moreover patient did receive Ativan. Will discontinue benzos and use Seroquel at night if needed -06/08/2019 patient to be prescribed Benadryl 25 mg p.o. nightly 8. Hypernatremia ? Secondary to decreased oral intake use of free water encouraged -06/10/2021; sodium down to 146 from 148 ? 06/11/2021: Sodium is 137 I did have to decrease her fluid secondary to rhonchi ? 06/12/2021: Sodium is now 145 ?06/13/2021: Sodium is now 149, will transition to D5W DVT: Lovenox Charges/Coding Visit Charges Inpatient E&M: 03772 Subs Hosp L2
[2021-06-17] VITALS (13 sets, daily range): BP systolic 98–127; BP diastolic 52–59; PULSE 71–171; RESP 18–22; TEMP 36.2–36.6; O2SAT 80–98
[2021-06-17] MEDS: Acetaminophen 650 MG/20 ML UDC PO ×2 (02:05→17:42)
--- NOTE | 2021-06-17 04:31 | EKG12_ITS ---
Test Reason : ARHYTHMIA Blood Pressure : / mmHG Vent. Rate : 081 BPM Atrial Rate : 081 BPM P-R Int : 098 ms QRS Dur : 066 ms QT Int : 376 ms P-R-T Axes : 018 014 020 degrees QTc Int : 436 ms Sinus rhythm with short MT Otherwise normal ECG No previous ECGs available Confirmed by KARI COOPER, BREE ([id number]), multimedia editor HUI PEDRAZA ([id number]) on 06/19/2021 10:03:49 AM Referred By: VENESSA Confirmed By:BREE PIERCE MD
--- NOTE | 2021-06-17 04:31 | PCM.PN.BLA ---
Progress Note Nurse reported patient has had bouts of tachycardia with heart rate 130s to 150s and some SVT on telemetry. Nurse reports current heart rate of 92. Nurse reported that patient daughter who is a physician and at the bedside thinks that patient's tachycardia is because of dextrose infusion. Review of records showed that the patient was started on dextrose infusion because of hypernatremia. Last sodium was 140. Chloride was still 110. We will discontinue IV fluids at this moment. Last potassium was 3.8. Patient had PADILLA on presentation. No potassium supplementation ordered at this time. BMP is pending. Magnesium on 06/11/2021 was 2.8. We will repeat magnesium level. We will get stat EKG.
[2021-06-17 06:37] LABS: Absolute Lymphocyte Count 0.13 X10^3/uL (0.83-4.51); Absolute Neutrophil Count 8.5 X10^3/uL (2.0-7.7); Basophil# 0.01 X10^3/uL; Basophil% 0.1 % (0-1); Eosinophil# 0.15 X10^3/uL; Eosinophils% 1.6 % (0-5); Hematocrit 22.5 % (37-47); Hemoglobin 7.6 g/dL (12.0-15.0); Lymphocyte # 0.13 X10^3/ul (0.83-4.51); Lymphocyte % 1.4 % (19-41); Mean Corp Hgb Conc 33.8 g/dL (32-36); Mean Corpuscular Hgb 28.1 pg (27.0-32.0); Mean Corpuscular Volume 83.3 fL (81-99); Mean Platelet Vol. 11.2 fl (6.2-12.0); Monocyte# 0.32 X10^3/uL; Monocyte% 3.4 % (0-10); NRBC Flagged by Analyzer 0.5 % (0-5); Neutrophil # 8.45 X10^3/uL (2.7-7.7); Neutrophil % 89.1 % (47-70); POSITIVE DIFFERENTIAL YES; POSITIVE MORPHOLOGY YES; Platelet Count 117 K/mm3 (150-450); RBC Distribution Width CV 21.4 % (11.6-14.6); RBC Distribution Width SD 63.9 fl (35.1-43.9); White Blood Count 9.5 K/mm3 (4.4-11.0)
[2021-06-17 06:40] LABS: Differential Indicated SCAN CRITERIA MET
[2021-06-17 07:05] LABS: Anion Gap 6 (5-15); BUN 29 mg/dL (7-18); BUN/Creat Ratio 29.5 RATIO (10-20); Calcium,Total 7.8 mg/dL (8.5-10.1); Chloride 106 mmol/L (98-107); Creatinine, Serum 0.98 mg/dL (0.55-1.02); EST Glomerular Filtration Rate 57 mL/min (>60); Est Glom Filt Rate - Afr Amer 69 mL/min (>60); Estimated Creatinine Clearance 28.49 ml/min; Glucose 95 mg/dL (74-106); Potassium 3.7 mmol/L (3.5-5.1); Sodium Level 137 mmol/L (136-145)
[2021-06-17 07:28] LABS: Anisocytosis 3+
[2021-06-17 07:51] LABS: Magnesium 1.9 mg/dL (1.6-2.6)
[2021-06-17] MEDS: Lidocaine 5% Patch 1 PATCH TOPICAL (10:45)
[2021-06-17] MEDS: NYSTATIN 500,000 UNIT/5 ML UDC 500000 UNIT PO ×3 (10:45→21:45)
[2021-06-17] MEDS: Iron Polysaccharide Complex 150 MG CAPSULE PO (10:45)
[2021-06-17] MEDS: Enoxaparin 30 MG/0.3 ML Syringe SC (10:45)
--- NOTE | 2021-06-17 11:06 | PN.HOSP_ITS ---
Subjective Subjective Much more alert today. She is in sinus tachycardia this is likely related to the crackles and some shortness of breath. They did attempt to ambulate her and with 6 L she was still down in the 80s today. Objective Data Objective Data Vital Signs: Vital Signs Temp Pulse Resp BP Pulse Ox 97.1 F L 84 22 H 127/59 H 80 06/17/21 08:31 06/17/21 08:31 06/17/21 08:31 06/17/21 08:31 06/17/21 09:44 Oxygen Flow Rate (L/min) [At 3 REST with Oxygen] Oxygen Flow Rate (L/min) [ 6 AMBULATING with Oxygen #1] Oxygen Flow Rate (L/min) 3 Oxygen Delivery Method Nasal Cannula Weight: 94 lb 12.78 oz Body Mass Index (BMI) 22.0 Intake & Output: Intake and Output for Last 24 Hours 06/16/21 06/17/21 06/18/21 03:59 03:59 03:59 Intake Total 698.33 / 698.33 1723 / 1723 220.83 / 220.83 Output Total 630 / 630 1195 / 1195 200 / 200 Balance 68.33 / 68.33 528 / 528 20.83 / 20.83 Medical Nutrition Assessment Dietitian: Malnutrition Criteria Met Start: 06/05/21 10 :56 Freq: Status: Active Protocol: Document 06/12/21 12:12 RMA (Rec: 06/12/21 12:13 RMA [id number]) Nutrition Malnutrition Evidence of Malnutrition Exists Yes Malnutrition (severe): Acute Illness/Injury Evidenced By Suboptimal Energy Intake ( Severe),Weight Loss (Severe) Clinical Problem Acute Disease or Injury Related Malnutrition Etiology Severe protein-calorie malnutrition in the context of acute illness related to inadequate oral intake and dehydration/diarrhea Signs/Symptoms as evidenced by 3% wt loss x less than 1 week, NPO currently and oral intake meeting less than 50% estimated nutrition and fluid needs. Status Active Problem Recommendation Dietitian Recommendations/Changes Regular diet as tolerated w/ ensure clear at meals. Consider nutrition support given inadequate PO, wt loss and malnutrition. Lab / Micro Data Result Diagrams: 06/17/21 06:26 06/17/21 06:26 Labs: Laboratory Results - last 24 hr 06/17/21 06:26: WBC 9.5, RBC 2.70 L, Hgb 7.6 L, Hct 22.5 L, MCV 83.3, MCH 28.1, MCHC 33.8, RDW Std Deviation 63.9 H, RDW Coeff of Alida 21.4 H, Plt Count 117 L, MPV 11.2, Immature Gran % (Auto) 4.400 H, Neut % (Auto) 89.1 H, Lymph % (Auto) 1.4 L, [place] % (Auto) 3.4, Eos % (Auto) 1.6, Baso % (Auto) 0.1, Absolute Neuts (auto) 8.5 H, Absolute Lymphs (auto) 0.13 L, Nucleated RBC % 0.5, Anisocytosis 3+ 06/17/21 06:26: Sodium 137, Potassium 3.7, Chloride 106, Carbon Dioxide 25.0, Anion Gap 6, BUN 29 H, Creatinine 0.98, Estim Creat Clear Calc 28.49, Est GFR (MDRD) Af Amer 69, Est GFR (MDRD) Non-Af 57 L, BUN/Creatinine Ratio 29.5 H, Glucose 95, Calcium 7.8 L 06/17/21 06:26: Magnesium 1.9 Micro: Microbiology 06/14/21 12:30 Stool Stool Occult Blood (CATHIE) - Final Occult Blood Positive 06/06/21 09:28 Stool C. difficile DNA Amplification - Final Physical Exam Narrative Const Alert, no acute distress HEENT normocephalic and moist oral mucous membranes Eyes PERRL and conjunctivae normal Neck supple and no JVD Resp normal respiratory effort, no retractions and no use of accessory muscles Auscultation: Diminished lung sounds with bilateral basilar crackles; Negative for rhonchi, rales or wheezes Cardio Regular rate, regular rhythm, S1 normal heart sound, S2 normal heart sound and no murmurs GI soft to palpation, non-tender and non-distended; Negative for hepatosplenomegaly Extremity no clubbing, cyanosis or edema Skin no rashes or lesions noted Neuro no focal motor deficits and no sensory deficits noted Psych Flat affect Appearance: appropriate Assessment & Plan Assessment/Plan (1) PADILLA (acute kidney injury): (2) COVID-19: PLAN: 1. Acute kidney injury ? Secondary to severe dehydration from profuse diarrhea admitted to the regular nursing floor where patient is currently being treated with IV fluids with subsequent monitoring with daily BMPs ordered -06/06/2021. Creatinine down to 1.28 -06/08/2021. Creatinine up to 1.79 following administration of Lasix. Patient also has hypernatremia for which increase oral intake of water has been en couraged -06/10/2021; creatinine down to 1.38 ? 06/11/2021: Creatinine is now up to 3.61, will place a Bower for more accurate measurements and will discuss situation with family given the fact that she is a DNR CCA with COVID and undergoing chemotherapy for rectal cancer ? 06/12/2021: Creatinine is back down to 1.30 unsure if this was lab error to have such a wide range of creatinine. KUB did not show a kidney stone and renal ultrasound demonstrated bilateral renal atrophy greater on the right than the left ? 06/15/2021: Midline was put in secondary to losing her IV yesterday. Continue with D5W ?06/16/2021: Renal function is better now that she has been midline and and she is on the D5W, sodium is much better controlled as well. Given that she is alert hopefully she will start being able to eat and drink enough or we can discontinue the IV fluids. ? 06/17/2021: We will stop the D5W as she is alert and eating and drinking well. D5W was not the cause of her sinus tach, she does have crackles and had some shortness of breath with ambulation therefore it could be an anxiety reaction. PADILLA has resolved 2. Acute hypoxic respiratory failure secondary to COVID-19 pneumonia ? Patient presented with diarrhea. This is being treated symptomatically. Currently not on any supplemental oxygen. -06/06/2021. Patient has been placed on supplemental oxygen necessitating patient status be changed from observation to full inpatient admit -06/07/2021 Patient seen had to be placed on supplemental oxygen in view of hypoxia. Steroids added to patient therapy. ? 06/09/2021. Patient remains on supplemental oxygen. ? 06/11/2021: She is on 12 to 15 L of oxygen to maintain a sat of 90% ? 06/12/2021: She is requiring a significant amount of oxygen, it does not appear that this has anything to do with patient's level of agitation. Prognosis at this time is fair to poor given her her age as well as her cancer history. We will start her on some fluids again as she is now sinus tachycardic and I do not hear any lung sounds consistent with fluid overload. She did diurese fairly well yesterday after the dose of Lasix. ? 06/13/2021: No diuresis today we will continue to go between nasal cannula and nonrebreather as of blow-by given her restlessness at times where her oxygen drops ? 06/14/2021: She is little bit more alert today, however still having some pain therefore we will put on a lidocaine patch as well as morphine. We will take away her Seroquel, lorazepam, and scheduled oxycodone. This is in an attempt to minimize any sedating effects these medications. She does have occasional moaning and agitation which if it is due to pain will be helped by the morphine otherwise she does not require any other type of intervention at this time. This was discussed with her [id number] who was in agreement and also a physician. ? 06/15/2021: Much more alert today, she is down 2 to 4 L nasal cannula. This family would still like to take her home when able we will do an ambulatory pu lse ox today and see how she does ? 06/16/2021: We will try to get an ambulatory pulse ox to see how much oxygen she would need with even minimal activity and also to figure out what oxygen level she would need while sleeping. ? 06/17/2021: Given the crackles on exam, will place her on oral Lasix x1 today, and see how this does. I discussed the situation with her [id number] who is a physician and she agrees with the treatment plan. We will discuss possibility for discharge in the next 24 to 48 hours 3. Diarrhea? Viral gastroenteritis from COVID versus effect from recent chemoradiation for rectal CA ? Patient be treated symptomatically and was given for patient to have a stool sample sent for C. difficile ? C. difficile was negative ? 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 Patient recently completed chemoradiation ? Patient complaining of significant perirectal pain treated locally in addition to increasing patient systemic pain management 4. GERD ? On PPI did continue 5. Anemia - Secondary to chronic disorder monitoring H&H and transfuse if patient becomes symptomatic or hemoglobin falls below 7 -06/05/2021; hemoglobin down to 7.3 and order was given for iron infusion -06/08/2021; hemoglobin up to 8.9 ? 06/12/2021: Hemoglobin is 7.5, will recheck this afternoon ?06/14/2021: Will send a Hemoccult as nursing noticed darker stools with a suppository. ? 06/16/2021: Hemoccult is positive however she does have significant excoriations secondary to the radiation for her rectal cancer. Hemoglobin is stable so therefore we will continue to monitor and she will need to follow-up as an outpatient for this issue. 6. Hypokalemia -Corrected per protocol -Repeat labs ordered for evaluation 7. Acute delirium Do suspect patient pain contributing moreover patient did receive Ativan. Will discontinue benzos and use Seroquel at night if needed -06/08/2019 patient to be prescribed Benadryl 25 mg p.o. nightly 8. Hypernatremia ? Secondary to decreased oral intake use of free water encouraged -06/10/2021; sodium down to 146 from 148 ? 06/11/2021: Sodium is 137 I did have to decrease her fluid secondary to rhonchi ? 06/12/2021: Sodium is now 145 ?06/13/2021: Sodium is now 149, will transition to D5W ? 06/17/2021: Hypernatremia has resolved DVT: Lovenox Charges/Coding Visit Charges Inpatient E&M: 47197 Subs Hosp L2
[2021-06-17] MEDS: Furosemide 20 MG Tablet PO (11:14)
[2021-06-17] MEDS: Morphine 2 MG/ML Syringe IV (18:08)
[2021-06-17] MEDS: 0.9% Saline Lock 10 ML Syringe IV (18:08)
[2021-06-18] VITALS (14 sets, daily range): BP systolic 102–157; BP diastolic 51–79; PULSE 91–148; RESP 18; TEMP 36.2–37.1; O2SAT 78–99
[2021-06-18] MEDS: 0.9% Saline Lock 10 ML Syringe IV (05:34)
[2021-06-18] MEDS: Morphine 2 MG/ML Syringe IV (05:34)
[2021-06-18 07:17] LABS: Absolute Lymphocyte Count 0.09 X10^3/uL (0.83-4.51); Absolute Neutrophil Count 7.5 X10^3/uL (2.0-7.7); Basophil# 0.01 X10^3/uL; Basophil% 0.1 % (0-1); Eosinophil# 0.14 X10^3/uL; Eosinophils% 1.7 % (0-5); Hematocrit 23.4 % (37-47); Hemoglobin 8.2 g/dL (12.0-15.0); Lymphocyte # 0.09 X10^3/ul (0.83-4.51); Lymphocyte % 1.1 % (19-41); Mean Corpuscular Hgb 29.1 pg (27.0-32.0); Mean Platelet Vol. 11.6 fl (6.2-12.0); Monocyte# 0.33 X10^3/uL; NRBC Flagged by Analyzer 0.4 % (0-5); Neutrophil # 7.47 X10^3/uL (2.7-7.7); Neutrophil % 90.4 % (47-70); POSITIVE DIFFERENTIAL YES; POSITIVE MORPHOLOGY YES; Platelet Count 118 K/mm3 (150-450); RBC Distribution Width CV 21.3 % (11.6-14.6); RBC Distribution Width SD 62.2 fl (35.1-43.9); Red Blood Count 2.82 M/mm3 (4.2-5.4); White Blood Count 8.3 K/mm3 (4.4-11.0)
[2021-06-18 07:22] LABS: Differential Indicated SCAN CRITERIA MET
--- NOTE | 2021-06-18 07:28 | PN.HOSP_ITS ---
Objective Data Objective Data Vital Signs: Vital Signs Temp Pulse Resp BP Pulse Ox 97.7 F L 129 H 18 102/57 L 90 06/18/21 02:58 06/18/21 02:59 06/18/21 02:58 06/18/21 02:58 06/18/21 06:47 Oxygen Flow Rate (L/min) [At 4 REST with Oxygen] Oxygen Flow Rate (L/min) [ 6 AMBULATING with Oxygen #1] Oxygen Flow Rate (L/min) 4 Oxygen Delivery Method Nasal Cannula Weight: 95 lb 3.835 oz Body Mass Index (BMI) 22.0 Intake & Output: Intake and Output for Last 24 Hours 06/16/21 06/17/21 06/18/21 23:59 23:59 23:59 Intake Total 2421.33 / 2421.33 820.83 / 820.83 Output Total 970 / 1195 750 / 1000 400 / 400 Balance 1451.33 / 1226.33 70.83 / -179.17 -400 / -400 Medical Nutrition Assessment Dietitian: Malnutrition Criteria Met Start: 06/05/21 10:5 6 Freq: Status: Active Protocol: Document 06/12/21 12:12 RMA (Rec: 06/12/21 12:13 RMA [id number]) Nutrition Malnutrition Evidence of Malnutrition Exists Yes Malnutrition (severe): Acute Illness/Injury Evidenced By Suboptimal Energy Intake ( Severe),Weight Loss (Severe) Clinical Problem Acute Disease or Injury Related Malnutrition Etiology Severe protein-calorie malnutrition in the context of acute illness related to inadequate oral intake and dehydration/diarrhea Signs/Symptoms as evidenced by 3% wt loss x less than 1 week, NPO currently and oral intake meeting less than 50% estimated nutrition and fluid needs. Status Active Problem Recommendation Dietitian Recommendations/Changes Regular diet as tolerated w/ ensure clear at meals. Consider nutrition support given inadequate PO, wt loss and malnutrition. Lab / Micro Data Result Diagrams: 06/18/21 07:00 06/17/21 06:26 Labs: Laboratory Results - last 24 hr 06/17/21 06:26: Anisocytosis 3+ 06/17/21 06:26: Magnesium 1.9 06/18/21 07:00: WBC 8.3, RBC 2.82 L, Hgb 8.2 L, Hct 23.4 L, MCV 83.0, MCH 29.1, MCHC 35.0, RDW Std Deviation 62.2 H, RDW Coeff of Alida 21.3 H, Plt Count 118 L, MPV 11.6, Immature Gran % (Auto) 2.700 H, Neut % (Auto) 90.4 H, Lymph % (Auto) 1.1 L, [place] % (Auto) 4.0, Eos % (Auto) 1.7, Baso % (Auto) 0.1, Absolute Neuts (auto) 7.5, Absolute Lymphs (auto) 0.09 L, Nucleated RBC % 0.4 Micro: Microbiology 06/14/21 12:30 Stool Stool Occult Blood (CATHIE) - Final Occult Blood Positive 06/06/21 09:28 Stool C. difficile DNA Amplification - Final
[2021-06-18 07:39] LABS: Anion Gap 5 (5-15); BUN 28 mg/dL (7-18); Chloride 108 mmol/L (98-107); EST Glomerular Filtration Rate 56 mL/min (>60); Est Glom Filt Rate - Afr Amer 68 mL/min (>60); Estimated Creatinine Clearance 28.05 ml/min; Glucose 103 mg/dL (74-106); Potassium 3.8 mmol/L (3.5-5.1); Sodium Level 141 mmol/L (136-145)
[2021-06-18 07:51] LABS: Anisocytosis 1+
[2021-06-18] MEDS: NYSTATIN 500,000 UNIT/5 ML UDC 500000 UNIT PO ×3 (08:29→17:55)
[2021-06-18] MEDS: Enoxaparin 30 MG/0.3 ML Syringe SC (08:29)
[2021-06-18] MEDS: Pantoprazole Sodium 40 MG Tablet PO (08:30)
[2021-06-18] MEDS: Lidocaine 5% Patch 1 PATCH TOPICAL (08:30)
[2021-06-18] MEDS: Iron Polysaccharide Complex 150 MG CAPSULE PO (08:30)
--- NOTE | 2021-06-18 10:25 | NURSING ---
noted tachycardia with movement/stimulation
[2021-06-18] MEDS: Mineral Oil/Petrolatum Cr 1.75oz Bottle 1 APPLIC TOPICAL (10:34)
--- NOTE | 2021-06-18 12:19 | DCINST_ITS ---
Discharge Instructions Diet Discharge Diet: - (Regular diet with pureed consistency and regular/thin liquids w/ 1:1 supervision, only when alert.) Activity Discharge Activity: - (Encourage as much activity as tolerated including range of motion if bed if remains limited.) Weight Bearing Status: Weight bearing as tolerated Dressing / Incision Call your doctor if you observe: Fever of 101 or Higher, Inability to urinate, Inability to have a bowel movement, Shortness of breath, Dizziness, Fainting spells, Chest pain, Increased palpitations (irregular heartbeat) and Uncontrolled pain Additional Dressing/Incision Instructions:: Please continue aggressive offloading and barrier care for her buttock/rectal region. Follow Up Care Test Results: Test results from this visit will be discussed in further detail at your follow-up appointment, if applicable. Discharge Plan Admission Admit Date/Time: 06/05/21 09:27 Primary Reason for Your Visit: COVID PNA, Resp failure, PADILLA, Rectal CA on chemoradiation, Delirium Attending Provider: Michelle Salazar Primary Care Provider: Rashad Talbert Instructions Patient Instructions: Coronavirus Disease 2019 (COVID-19): Caring for Yourself or Others, Understanding Oxygen Therapy, Traveling with Oxygen Additional Instructions / Restrictions: ADDITIONAL INSTRUCTIONS: (1) Please take baby aspirin for the next 2-4 weeks post [facility] hospital disch arge given elevated clot risk with COVID. If any concerning bleeding or not tolerated may discontinue. (2) If able please encourage her to continue incentive spirometer 10/hr 7a-7p. (3) If able please encourage frequent positional changes. (4) Please hold daily bisacodyl if stools liquid/diarrhea onset. May need to transition to every other day or regimen that seems to work best to maintain healthy bowel pattern. (5) Please use the metoprolol 25 mg as needed for elevated heart rate that is intractable if her blood pressure allows. You may decrease the 25 mg to 12.5 mg if needed as well. If she has ongoing tachycardic issues it may be appropriate to discuss outpatient Cardiology follow-up with her primary care. Discharge Orders/Prescriptions Prescriptions: New Remove Patch 1 patch topical DAILY@2200 5 Days RF: 0 nystatin 100,000 unit/mL Suspension 500,000 unit PO 4X/DAY 7 Days Qty: 140 RF: 0 lidocaine HCl [Lidocaine Viscous] 2 % Solution 5 ml PO Q3H PRN PRN (Reason: Pain Score 1-10) 10 Days Qty: 100 RF: 0 bisacodyl 10 mg Suppository 10 mg [place] DAILY 14 Days Qty: 14 RF: 0 lidocaine 5 % Adhesive Patch,Medicated 1 patch topical DAILY 15 Days Qty: 15 RF: 0 metoprolol tartrate 25 mg tablet 25 mg PO BID PRN PRN (Reason: HR > 120, intractable) 30 Days Qty: 60 RF: 0 aspirin 81 mg tablet,delayed release (DR/EC) 81 mg PO DAILY 30 Days Qty: 30 RF: 0 Continued loperamide 2 mg Capsule 2 mg PO Q4H PRN (Reason: loose stools) RF: 0 polysaccharide iron complex [Ferrex 150] 150 mg iron Capsule 325 mg PO QODAY RF: 0 potassium chloride 10 mEq tablet extended release 20 meq PO BID RF: 0 oxycodone-acetaminophen 5-325 mg tablet 1 tab PO BID RF: 0 ergocalciferol (vitamin D2) 1,000 unit Capsule 2,000 unit PO DAILY RF: 0 pantoprazole [Protonix] 40 mg Tablet,Delayed Release (Dr/Ec) 40 mg PO DAILY RF: 0 Referrals / Follow Up: Rashad Talbert MD [Primary Care Provider] - (Follow-up within 3-5 days of hospital discharge to review admission. Please have repeat CBC and BMP at follow-up with PCP given recent electrolyte disturbances and acute kidney injury.) Disposition Disposition (needs filled in before D/C Order can be placed): Home Health [facility]
--- NOTE | 2021-06-18 12:22 | DS.PCM_ITS ---
Providers Date of Admission: 06/05/21 Primary Care Physician: Dr. Rashad Talbert MD Reason For Visit: DEHYDRATION, PADILLA Medications at Discharge Home Medications ergocalciferol (vitamin D2) 2,000 unit PO DAILY 06/05/21 loperamide 2 mg PO Q4H PRN 06/05/21 oxycodone-acetaminophen 1 tab PO BID 06/05/21 pantoprazole [Protonix] 40 mg PO DAILY 06/05/21 polysaccharide iron complex [Ferrex 150] 325 mg PO QODAY 06/05/21 potassium chloride 20 meq PO BID 06/05/21 Remove Patch 1 patch TOPICAL DAILY@2200 5 Days 06/18/21 aspirin 81 mg PO DAILY 30 Days #30 tab 06/18/21 bisacodyl 10 mg TN DAILY 14 Days #14 ea 06/18/21 lidocaine 1 patch TOPICAL DAILY 15 Days #15 ea 06/18/21 lidocaine HCl [Lidocaine Viscous] 5 ml PO Q3H PRN PRN 10 Days #100 ml 06/18/21 metoprolol tartrate 25 mg PO BID PRN PRN 30 Days #60 tab 06/18/21 nystatin 500,000 unit PO 4X/DAY 7 Days #140 ml 06/18/21 oxycodone 5 mg PO Q4H PRN 5 Days #30 cap 06/18/21 Hospital Course Operations None Procedures EKG and - (Renal ultrasound, midline, Fe transfusion.) Summary of Care Provided Minutes Spent on Discharge: 35 Hospital Course: ATTENDING PHYSICIAN DISCHARGE NOTE: Discharge Diagnoses: #1. Acute hypoxic respiratory failure secondary to COVID-19 pneumonia #2. Severe protein calorie malnutrition as evidenced by significant reduced intake, attributed by severe acute illness as noted #1 #3. Acute kidney injury secondary to likely GI losses secondary to acute presentation #1 #4. 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 Chronic anemia/AOCD/Fe deficiency complicated by acute presentation #1 #6. Acute delirium, multifactorial, secondary to medications unlikely #1, #2, #3, #4 #7. Electrolyte disturbances including hypokalemia, hyponatremia secondary to decreased oral intake Discharge Summary: The patient is an 86 y/o F w/ PMHx: Rectal cancer with ongoing outpatient chemoradiation with last episode the prior who presents to the [facility] ED on 06/05/20 with history of progressively worsening fatigue, malaise, diarrhea with history of rectal carcinoma status post chemo and radiation therapy with the last treatment the prior with several bouts and despite significant oral intake Imodium no marked decrease with positive COVID testing on the prior day prior to current presentation with initially minimal respiratory complaints prompting ED evaluation. Patient did progressively worse following admission requiring up to 15 L of oxygen and was p ulsed dosed with IV Lasix, diarrhea did subside with negative C. difficile and felt likely secondary to underlying Covid illness with KUB notable for moderate fecal burden. Patient radiation dermatitis treated with local care and systemic management. Patient's acute kidney injury trended upwards on 06/11/2019 2-3.61 with Bower placement at that time with creatinine provement to 1.30. Patient mental status did improve and she was able to take oral intake and was much more alert and interactive. Given patient clinical improvement per daughter preference patient discharged to home on 06/18/2021 with plan continued oxygen supplementation with wean as able, prescription for hospital bed, oral pain regimen for her significant rectal cancer post chemo radiation dermatitis with recommendation for frequent positional changes and offloading. Oxygenation assessment as noted was completed prior to discharge. Discharge Time: > 35 Minutes DAY OF DISCHARGE PROGRESS NOTE: Subjective: Patient without acute event overnight per self and nursing report except for continued episodes of transient tachycardia which daughter notes she has had in the past and has some relation to pain and anxiety but also likely attributed to her recent Covid illness. Discussed at length with daughter and amenable to as needed beta-andrew therapy as she prefers to take her mother home as she is currently stable on 6 L nasal cannula. Patient denies fever, chills, nausea, emesis, abdominal pain, chest pain or dyspnea. Diarrhea has resolved. Patient agreeable to discharge to to home with plan for as needed be ta-andrew as noted, continued oxygen supplementation and prescription and process initiated for home therapies as well as home hospital bed. Patient will be discharged with follow-up with primary care physician. Objective: T 98.7, heart rate 91, BP 115/57, respiratory rate 18, 94% currently on 2 L at rest with need for 6 L with activity. Physical Examination: General: awake, alert, oriented x 3 and cooperative, seated upright in the medical surgical bed, comfortable, ready to eat breakfast she notes. Skin: normal color, normal turgor, no icterus, no cyanosis, per wound lessening perirectal dermatitis/irritation. HEENT: AT/NC, EOMI, PERRLA, mildly dry MM. Lungs: Diffusely diminished, greater bases, moderate effort, no evidence of any distress no rales, ronchi or wheezing; Heart: Mildly tachycardic with regular rhythm currently; no gallop, rub audible. Abdomen: soft, NTTP, ND, normal BS. Extremities: no cyanosis, clubbing, or edema. Neurological: patient awake, alert, oriented as noted; cognitive function improving, delirium is resolving; pupils equally reactive to light and acco modation; cranial nerves II-XII grossly normal, moving all 4 extremities, strength severely global decreased secondary to acute presentation. Psychiatric: affect appears mildly fatigued otherwise normal, no acute evidence of depressive or anxiety feelings. Assessment and Plan: Please see hospital summary above. Medical Records Data Medical Nutrition Assessment Dietitian: Malnutrition Criteria Met Start: 06/05/21 10:56 Freq: Status: Active Protocol: Document 06/12/21 12:12 RMA (Rec: 06/12/21 12:13 RMA [id number]) Nutrition Malnutrition Evidence of Malnutrition Exists Yes Malnutrition (severe): Acute Illness/Injury Evidenced By Suboptimal Energy Intake ( Severe),Weight Loss (Severe) Clinical Problem Acute Disease or Injury Related Malnutrition Etiology Severe protein-calorie malnutrition in the context of acute illness related to inadequate oral intake and dehydration/diarrhea Signs/Symptoms as evidenced by 3% wt loss x less than 1 week, NPO currently and oral intake meeting less than 50% estimated nutrition and fluid needs. Status Active Problem Recommendation Dietitian Recommendations/Changes Regular diet as tolerated w/ ensure clear at meals. Consider nutrition support given inadequate PO, wt loss and malnutrition. Weight / BMI Weight Weight: 95 lb 3.835 oz Body Mass Index (BMI) 22.0 ABG / Lab / Microbiology Data Result Diagrams: 06/18/21 07:00 06/18/21 07:00 Laboratory: Laboratory Results - last 24 hr 06/18/21 07:00: WBC 8.3, RBC 2.82 L, Hgb 8.2 L, Hct 23.4 L, MCV 83.0, MCH 29.1, MCHC 35.0, RDW Std Deviation 62.2 H, RDW Coeff of Alida 21.3 H, Plt Count 118 L, MPV 11.6, Immature Gran % (Auto) 2.700 H, Neut % (Auto) 90.4 H, Lymph % (Auto) 1.1 L, Valley % (Auto) 4.0, Eos % (Auto) 1.7, Baso % (Auto) 0.1, Absolute Neuts (auto) 7.5, Absolute Lymphs (auto) 0.09 L, Nucleated RBC % 0.4, Differential Comment COMMENT, Anisocytosis 1+ 06/18/21 07:00: Sodium 141, Potassium 3.8, Chloride 108 H, Carbon Dioxide 28.0, Anion Gap 5, BUN 28 H, Creatinine 1.00, Estim Creat Clear Calc 28.05, Est GFR (MDRD) Af Amer 68, Est GFR (MDRD) Non-Af 56 L, BUN/Creatinine Ratio 28.0 H, Glucose 103, Calcium 8.0 L Microbiology: Microbiology 06/14/21 12:30 Stool Stool Occult Blood (CATHIE) - Final Occult Blood Positive 06/06/21 09:28 Stool C. difficile DNA Amplification - Final D/C Instructions Discharge Diet: - (Regular diet with pureed consistency and regular/thin liquids w/ 1:1 supervision, only when alert.) Weight Bearing Status: Weight bearing as tolerated Call your doctor if you observe: Fever of 101 or Higher, Inability to urinate, Inability to have a bowel movement, Shortness of breath, Dizziness, Fainting spells, Chest pain, Increased palpitations (irregular heartbeat) and Uncontrolled pain Additional Dressing/Incision Instructions: Please continue aggressive offloading and barrier care for her buttock/rectal region. Meaningful Use Info Meaningful Use Diagnoses (Choose all that apply): None applicable Discharge Plan Admission Admit Date/Time: 06/05/21 09:27 Primary Reason for Your Visit: COVID PNA, Resp failure, PADILLA, Rectal CA on chemoradiation, Delirium Attending Provider: Michelle Salazar Primary Care Provider: Rashad Talbert Instructions Patient Instructions: Coronavirus Disease 2019 (COVID-19): Caring for Yourself or Others, Understanding Oxygen Therapy, Traveling with Oxygen Additional Instructions / Restrictions: ADDITIONAL INSTRUCTIONS: (1) Please take baby aspirin for the next 2-4 weeks post [facility] hospital di [place] given elevated clot risk with COVID. If any concerning bleeding or not tolerated may discontinue. (2) If able please encourage her to continue incentive spirometer 10/hr 7a-7p. (3) If able please encourage frequent positional changes. (4) Please hold daily bisacodyl if stools liquid/diarrhea onset. May need to transition to every other day or regimen that seems to work best to maintain hea lthy bowel pattern. (5) Please use the metoprolol 25 mg as needed for elevated heart rate that is in tractable if her blood pressure allows. You may decrease the 25 mg to 12.5 mg if needed as well. If she has ongoing tachycardic issues it may be appropriate to discuss outpatient Cardiology follow-up with her primary care. Discharge Orders/Prescriptions Prescriptions: New Remove Patch 1 patch topical DAILY@2200 5 Days RF: 0 nystatin 100,000 unit/mL Suspension 500,000 unit PO 4X/DAY 7 Days Qty: 140 RF: 0 lidocaine HCl [Lidocaine Viscous] 2 % Solution 5 ml PO Q3H PRN PRN (Reason: Pain Score 1-10) 10 Days Qty: 100 RF: 0 bisacodyl 10 mg Suppository 10 mg TN DAILY 14 Days Qty: 14 RF: 0 lidocaine 5 % Adhesive Patch,Medicated 1 patch topical DAILY 15 Days Qty: 15 RF: 0 metoprolol tartrate 25 mg tablet 25 mg PO BID PRN PRN (Reason: HR > 120, intractable) 30 Days Qty: 60 RF: 0 aspirin 81 mg tablet,delayed release (DR/EC) 81 mg PO DAILY 30 Days Qty: 30 RF: 0 oxycodone 5 mg capsule 5 mg PO Q4H PRN (Reason: severe pain 6-10) 5 Days Qty: 30 RF: 0 Continued loperamide 2 mg Capsule 2 mg PO Q4H PRN (Reason: loose stools) RF: 0 polysaccharide iron complex [Ferrex 150] 150 mg iron Capsule 325 mg PO QODAY RF: 0 potassium chloride 10 mEq tablet extended release 20 meq PO BID RF: 0 oxycodone-acetaminophen 5-325 mg tablet 1 tab PO BID RF: 0 ergocalciferol (vitamin D2) 1,000 unit Capsule 2,000 unit PO DAILY RF: 0 pantoprazole [Protonix] 40 mg Tablet,Delayed Release (Dr/Ec) 40 mg PO DAILY RF: 0 Referrals / Follow Up: Rashad Talbert MD [Primary Care Provider] - 06/20/21 2:40 pm (Follow-up within 3-5 days of hospital discharge to review admission. Please have repeat CBC and BMP at follow-up with PCP given recent electrolyte disturbances and acute kidney injury.) Disposition Disposition (needs filled in before D/C Order can be placed): Home Health Service Charges/Coding Visit Charges Inpatient E&M: 07849 Disch Hosp
[2021-06-18] MEDS: Metoprolol Tartrate 5 MG/5 ML Vial 2.5 MG IV (12:48)
--- NOTE | 2021-06-18 14:14 | CASEMGMT ---
Addendum entered by Afshan Hernandez 06/18/21 14:30: Received notification from [facility] that they do not have hospital beds at this time. She expects them to come this week. TC to [facility], they have one bed left but are unsure of when this will be able to be delivered. She is hoping for this week. TC to pt dtr in law, she states to go ahead and stick with [facility] and they will wait for the bed. She states pt did ok without it prior. She states she has not been able to find a pulse ox for pt. TC to [facility] Retail pharmacy, they are on backorder. Original Note: Pt qualifies for home O2 and per is interested in a hospital bed. Faxed referral to [facility] for both. Email to [facility] to make aware of referral and that portable tank taken from stock. Faxed [facility] pt dc instructions.
--- NOTE | 2021-06-18 18:17 | NURSING ---
talked with Dr. Perry aware she prefers we leave barnes and midline. barnes converted to leg bag at her preference w/ Nurse [facility], [facility] barnes bag sent with pt.
--- NOTE | 2021-06-18 19:11 | NURSING ---
dc instructions reviewed w/ Dr. Perry. [facility] o2 tank delivered. [facility] per dr. Vicky fan has contacted her regarding home o2 and should be there within 20minutes. pt being assisted out by customer relations advisor/nurse rachel lorenzana.
== END 2021-06-18 19:15 | disposition home health service (06) | DRG 137 ==
LOC: ED 06-05 00:02 → MS3 06-05 00:51
PROVIDERS: Family Medicine; Hospitalist; Internal Medicine; Admitting Provider Family Medicine; Emergency Provider Emergency Medicine; PCP Internal Medicine; Visit Provider Family Medicine
DX: U07.1 COVID-19 (principal); J96.01 Acute respiratory failure with hypoxia; J12.82 Pneumonia due to coronavirus disease 2019; G93.40 Encephalopathy, unspecified; E43 Unspecified severe protein-calorie malnutrition; E87.0 Hyperosmolality and hypernatremia; D63.8 Anemia in other chronic diseases classified elsewhere; E86.0 Dehydration; C20 Malignant neoplasm of rectum; N17.9 Acute kidney failure, unspecified; D50.9 Iron deficiency anemia, unspecified; K21.9 Gastro-esophageal reflux disease without esophagitis; A08.4 Viral intestinal infection, unspecified; F41.9 Anxiety disorder, unspecified; E87.6 Hypokalemia; Z68.22 Body mass index [BMI] 22.0-22.9, adult; Z92.3 Personal history of irradiation; Z92.21 Personal history of antineoplastic chemotherapy; Z79.899 Other long term (current) drug therapy
CPT/HCPCS: 36415; 71045; 74018; 76770; 80048; 80053; 82274; 82436; 82607; 83540; 83550; 83605; 83735; 84133; 84300; 85014; 85018; 85025; 85045; 87493; 92507; 92526; 92610; 92611; 93005; 94002; 94640; 94660; 94762; 97110; 97163; 97530; 99251; 99284; J7030; J7050; A4216; G0463; J1940; J2916

== ENCOUNTER 2021-06-20 13:01 | Outpatient (CLI) | payer MEDICAID, SELFPAY ==
[2021-06-20 13:40] LABS: Magnesium 1.7 mg/dL (1.6-2.6)
== END 2021-06-20 23:59 | disposition short-term general hospital (02) ==
LOC: LABSPEC 13:03
PROVIDERS: PCP Internal Medicine; Visit Provider Internal Medicine
DX: U07.1 COVID-19 (principal)
CPT/HCPCS: 83735

== ENCOUNTER 2021-06-21 16:02 | Outpatient (CLI) | payer MEDICAID, SELFPAY ==
[2021-06-21 16:43] LABS: ALB/GLOB Ratio 0.5 RATIO (0.9-2.4); AST(SGOT) 31 U/L (15-37); Alanine Aminotransfer ALT/SGPT 20 U/L (13-56); Albumin, Serum 1.8 g/dL (3.2-5.0); Alkaline Phosphatase 84 U/L (45-117); Anion Gap 9 (5-15); BUN 26 mg/dL (7-18); BUN/Creat Ratio 29.1 RATIO (10-20); Calcium,Total 7.5 mg/dL (8.5-10.1); Chloride 103 mmol/L (98-107); Creatinine, Serum 0.89 mg/dL (0.55-1.02); EST Glomerular Filtration Rate 64 mL/min (>60); Est Glom Filt Rate - Afr Amer 77 mL/min (>60); Globulin 3.4 g/dL (2.2-4.2); Glucose 86 mg/dL (74-106); Protein, Total 5.2 g/dL (6.4-8.2); Sodium Level 136 mmol/L (136-145)
== END 2021-06-21 23:59 | disposition short-term general hospital (02) ==
LOC: LAB 16:03
PROVIDERS: PCP Internal Medicine; Visit Provider Internal Medicine Hematology & Oncology
DX: U07.1 COVID-19 (principal)
CPT/HCPCS: 80053

== ENCOUNTER 2021-07-18 16:44 | Outpatient (CLI) | payer MEDICAID, SELFPAY ==
[2021-07-18 17:06] LABS: Color, Urine Yellow (Yellow); Glucose, Dipstick Normal (Normal); Ketone-Dipstick Negative (Negative); Leukocyte Esterase-Dipstick 500 /ul (Negative); Nitrite-Dipstick Negative (Negative); Occult Blood-Urine 250 /ul (Negative); Protein-Dipstick 100 mg/dl (Negative); Specific Gravity, Urine 1.015 (1.002-1.030); Urine Bilirubin Dipstick Negative (Negative); Urine Clarity Cloudy (Clear); Urine Urobilinogen Normal (Normal)
== END 2021-07-18 23:59 | disposition home or self-care (01) ==
PROVIDERS: PCP Internal Medicine; Visit Provider Internal Medicine
DX: N39.0 Urinary tract infection, site not specified (principal)
CPT/HCPCS: 81002; 87086; 87088

== ENCOUNTER 2022-09-16 18:28 | Emergency (ER) | payer MEDICAID, SELFPAY ==
[2022-09-16 18:28] VITALS: BP 169/87; PULSE 105; RESP 16; TEMP 37; O2SAT 100
[2022-09-16 20:18] VITALS: BP 149/84; PULSE 92; RESP 18; O2SAT 97; BMI 24.3
--- NOTE | 2022-09-16 20:22 | CT_ITS ---
EXAM: CT HEAD WITHOUT INTRAVENOUS CONTRAST CLINICAL INDICATION: Closed head injury TECHNIQUE: Multiple axial images were obtained of the head without intravenous contrast. CTDIvol = ( 44.99 ) mGy, DLP = ( 779.24 ) mGycm This CT exam was performed using one or more of the following dose reduction techniques: automated exposure control, adjustment of the mA and/or kV according to patient size, and/or use of iterative reconstruction technique. This report was created using LiveRSVP report generation technology. COMPARISON: None. FINDINGS: BRAIN AND EXTRA-AXIAL SPACES: Periventricular small vessel ischemic change. No midline shift or hydrocephalus. Diffuse parenchymal atrophy. Posterior fossa structures are unremarkable. Basal cisterns are patent. No acute intracranial hemorrhage, mass effect or edema. No evidence of acute cortical stroke. BONES/JOINTS: Unremarkable. No discrete lytic or blastic abnormalities. SOFT TISSUES: Right frontal scalp hematoma and laceration. VASCULATURE: Atherosclerotic calcifications of the carotid siphons and vertebrobasilar arteries. SINUSES: Unremarkable as visualized. Clear. MASTOID AIR CELLS: Visualized sinuses and mastoid air cells are clear. ORBITS: Visualized globes, extraocular muscles, optic nerves and retrobulbar fat appear unremarkable. CT/Brain/Head without Contrast IMPRESSION: 1. No evidence of acute intracranial pathology. 2. Diffuse involutional changes and chronic ischemic small vessel white matter disease. AIDOC was utilized to assist in identifying pertinent positive findings. Electronically Signed: Rj Méndez MD at 21:36 EDT ,
[2022-09-16] MEDS: Diphth,Pertuss(Acell),Tet Vac 0.5 ML Vial IM (20:43)
[2022-09-16] MEDS: Lidocaine 1% (20 ml mdv) 20 ML Vial INFILT (20:44)
--- NOTE | 2022-09-16 22:56 | EX.ED.GENINJ ---
HPI History of Present Illness Chief Complaint: Head Injury Detail of Chief Complaint: Mechanical fall with scalp laceration and closed head injury Informant: patient and family Onset/Context/Timing Onset: Hours Mechanism/Context: Fall Location of pain/injuries: - (Scalp near the hairline) Quality of Pain: Dull Location: Near the hairline predominately on the right side Current Severity: Mild Maximum Severity: Moderate Worsened by: Nothing Relieved by: None thing Associated Symptoms Associated Symptoms: Positive for - (Patient was dazed); Negative for Parasthesias, Weakness, Loss of function, Inability to ambulate, Loss of consciousness or Amnesia Length of loss of consciousness: Transient Narrative Narrative: Patient is an 87-year-old woman on at who had a mechanical fall sustaining laceration to the frontal region. She reports being dazed. She denies double vision, blurred vision loss of vision. [place] ringing or ears decreased hearing. Denies neck pain. Denies paresthesia, anesthesia or motor his upper or lower extremity. She denies nausea or vomiting. She denies black or maroon-colored stool. She denies urologic symptoms. She is on aspirin. She is not on Plavix or anticoagulant. She denies history of concussion. She denies pain to her extremities. She denies pain to her lower back. Tetanus Immunization: Unknown Prior similar symptoms: No Recent Illness/Hospitalization: No PFSH PFSH Medical History COVID-19 COVID-19 Kidney disease Rectal cancer Rheumatoid arthritis Home Medications ergocalciferol (vitamin D2) 1,000 unit capsule 2,000 unit PO DAILY 06/05/21 [History Last Taken Unknown] loperamide 2 mg capsule 2 mg PO Q4H PRN loose stools 06/05/21 [History Last Taken Unknown] oxycodone-acetaminophen 5 mg-325 mg tablet 1 tab PO BID 06/05/21 [History Last Taken Unknown] pantoprazole 40 mg tablet,delayed release (Protonix) 40 mg PO DAILY gastritis 06/05/21 [History Last Taken Unknown] polysaccharide iron complex 150 mg iron capsule (Ferrex) 325 mg PO QODAY 06/05/21 [History Last Taken Unknown] potassium chloride 10 mEq tablet,extended release 20 meq PO BID 06/05/21 [History Last Taken Unknown] Remove Patch 1 patch topical DAILY@2200 5 days 06/18/21 [Rx Last Taken Unknown] aspirin 81 mg tablet,delayed release 81 mg PO DAILY 30 days #30 tabs 06/18/21 [Rx Last Taken Unknown] bisacodyl 10 mg rectal suppository 10 mg MS DAILY 14 days #14 ea 06/18/21 [Rx Last Taken Unknown] lidocaine 5 % topical patch 1 patch topical DAILY 15 days #15 ea 06/18/21 [Rx Last Taken Unknown] lidocaine HCl 2 % mucosal solution (Lidocaine Viscous) 5 ml PO Q3H PRN PRN Pain Score 1-10 10 days #100 mL 06/18/21 [Rx Last Taken Unknown] metoprolol tartrate 25 mg tablet 25 mg PO BID PRN PRN HR > 120, intractable 30 days #60 tabs 06/18/21 [Rx Last Taken Unknown] nystatin 100,000 unit/mL oral suspension 500,000 unit (5 mL) PO 4X/DAY 7 days #140 mL 06/18/21 [Rx Last Taken Unknown] oxycodone 5 mg capsule 5 mg PO Q4H PRN severe pain 6-10 5 days #30 caps 06/18/21 [Rx Last Taken Unknown] Allergy/AdvReac Type Severity Reaction Status Date / Time No Known Allergies Allergy Verified 06/04/21 22:45 Social History household members: family Smoking Status: Never smoker ROS ROS ED Constitutional Constitutional ED: Denies chills, fever(s), subjective, sweats or weight loss Eyes Eyes: Denies blurry vision or change in vision ENT ENT ED: Reports other Details: Denies epistaxis and denies dental trauma. ; Denies ear pain, rhinorrhea or sore throat Cardiovascular Cardiovascular: Denies chest pain or palpitations Respiratory/Chest Respiratory/Chest: Denies cough, dyspnea or dyspnea on exertion Gastrointestinal Gastrointestinal: Denies abdominal pain, melena, nausea or vomiting Genitourinary Genitourinary ED: Denies dysuria, hematuria or urinary frequency Musculoskeletal Musculoskeletal: Denies arthralgias, back pain or myalgias Integumentary Reports other Details: Scalp laceration Neurologic Neurologic: Denies headache(s), paresthesias or weakness Psychiatric Psychiatric: Denies anxiety or depression Endocrine Endocrinology: Denies cold intolerance or heat intolerance Hematologic/Lymphatic Hematologic/Lymphatic: Denies easy bleeding or easy bruising EXAM Physical Exam Const Vital Signs: 09/16/22 18:28 09/16/22 20:18 09/16/22 20:18 Temperature 98.6 F Temperature Source Temporal Pulse Rate 105 H 92 Respiratory Rate 16 18 Respiratory Effort Normal Non-Labored Respiratory Depth Normal Respiratory Pattern Normal Blood Pressure 169/87 H 149/84 H Blood Pressure Mean 114 105 Pulse Ox 100 97 Oxygen Delivery Method Room Air Room Air Room Air Positive well nourished and well developed General Appearance ED: well developed and NAD HEENT HEENT Narrative: 5 cm laceration near the hairline predominantly on the right. There is no palpable oppression. There is no clinical signs of basilar skull fracture. Ears normal. Nares patent. No epistaxis. No septal deviation hematoma. trauma Eyes PERRL and EOMs intact bilaterally General Eye ED: Yes other Other Details: Is no subconjunctival hemorrhage. There is no step-off with palpation of the infraorbital rims. There is no hyperesthesia of the infraorbital nerves. The is no appropriate with central upward gaze use. Neck full ROM Neck Narrative: There is no pain the patient over the posterior neck. She has full active range of motion. Chest Wall inspection of chest normal and palpation of chest normal Resp No normal respiratory effort and No clear to auscultation bilaterally Cardio regular rhythm, S1 normal heart sound, S2 normal heart sound and no murmurs Rate: regular rate GI normal to inspection, nondistended, normoactive bowel sounds, non-tender, non-distended and no masses Palpation: soft Back/Spine normal to inspection and no thoracic nor lumbar tenderness Extremity normal to inspection Extremity Narrative: Patient is wearing a splint right wrist due to rheumatoid arthritis. Neuro oriented x3, CN's II-XII intact bilaterally, moves all extremities, no focal motor deficits and no sensory deficits noted Neuro Narrative: There is no dysmetria. There is no clonus or Babinski sign noted. [place] Coma Scale: document GCS findings Spontaneous Obeys Commands Oriented 15 Sensorium / Orientation: alert Plantar Reflex: Downgoing: bilateral Psych mental status grossly normal and thought process normal Skin Skin Narrative: 5 cm scalp laceration. PROC Procedures Other Procedures Procedure(s): Wound was prepped draped sterile manner. Wound was cleansed. Wound was anesthetized by local titration with 1% lidocaine. Total 3 cc was infiltrated. After 15 minutes patient's wound was closed using 5-0 Ethilon. A total of 10 simple interrupted sutures were placed with good cosmesis and hemostasis. MDM MDM MDM Narrative Medical decision making narrative: Since patient is over the age 65 had head trauma and was dazed per the [place] CT head rule imaging is required to rule out intracranial bleed. Laceration required repair and was documented under the procedure note. Radiography Diagnostic Testing: Clinical Impression(s) from Imaging Studies Brain CT 09/16/22 20:22 IMPRESSION: 1. No evidence of acute intracranial pathology. 2. Diffuse involutional changes and chronic ischemic small vessel white matter disease. AIDOC was utilized to assist in identifying pertinent positive findings. Electronically Signed: Rj Méndez MD at 21:36 EDT , The CT T was reviewed by me prior to radiologist read. There is no evidence of epidural hematoma, subdural hematoma, intracranial contusion or traumatic subarachnoid hemorrhage. There is no fluid noted in the sinuses either. Discharge Plan Triage Chief Complaint: Head Injury ED Provider: Venu Rivas Dx/Rx/DC Orders Clinical Impression: Closed head injury, Laceration of scalp, Injury due to fall Instructions: ED Head Injury (Adult), ED Laceration Scalp Stitches or [place] Prescriptions: No Action loperamide 2 mg Capsule 2 mg PO Q4H PRN (Reason: loose stools) polysaccharide iron complex [Ferrex 150] 150 mg iron Capsule 325 mg PO QODAY potassium chloride 10 mEq tablet extended release 20 meq PO BID oxycodone-acetaminophen 5-325 mg tablet 1 tab PO BID ergocalciferol (vitamin D2) 1,000 unit Capsule 2,000 unit PO DAILY pantoprazole [Protonix] 40 mg Tablet,Delayed Release (Dr/Ec) 40 mg PO DAILY Remove Patch 1 patch topical DAILY@2200 5 Days 0RF nystatin 100,000 unit/mL Suspension 500,000 unit PO 4X/DAY 7 Days Qty: 140 0RF Rx Instructions: Continue swish and swallow until thrush resolved. lidocaine HCl [Lidocaine Viscous] 2 % Solution 5 ml PO Q3H PRN PRN (Reason: Pain Score 1-10) 10 Days Qty: 100 0RF bisacodyl 10 mg Suppository 10 mg MS DAILY 14 Days Qty: 14 0RF lidocaine 5 % Adhesive Patch,Medicated 1 patch topical DAILY 15 Days Qty: 15 0RF Protocol: *Topical Application Instructions APPLICATION INSTRUCTIONS: to back Rx Instructions: Apply to affected region metoprolol tartrate 25 mg tablet 25 mg PO BID PRN PRN (Reason: HR > 120, intractable) 30 Days Qty: 60 0RF Rx Instructions: Hold for reduced blood pressure. aspirin 81 mg tablet,delayed release (DR/EC) 81 mg PO DAILY 30 Days Qty: 30 0RF Rx Instructions: Please take daily baby asa for 14-30 days post COVID discharge. oxycodone 5 mg capsule 5 mg PO Q4H PRN (Reason: severe pain 6-10) 5 Days Qty: 30 0RF Rx Instructions: Hold for sedation/confusion. Primary Care Provider: Rashad Talbert Referrals: Rashad Talbert MD [Primary Care Provider] - 10-14 Days suture removal Activity Restrictions/Additional Instructions: 1. Keep wound clean and dry for the next 48 to 72 hours 2. Sutures to be removed in 10 to 14 days 3. Is any concern for infection either follow-up with Dr. Talbert or return to the emergency department Disposition Disposition: Home, Self Care
[2022-09-16 23:18] VITALS: BP 138/74; PULSE 74; RESP 18; O2SAT 95
== END 2022-09-16 23:18 | disposition home or self-care (01) ==
PROVIDERS: Emergency Provider Emergency Medicine; PCP Internal Medicine; Visit Provider Emergency Medicine
DX: S01.01XA Laceration without foreign body of scalp, initial encounter (principal); W19.XXXA Unspecified fall, initial encounter; Z79.82 Long term (current) use of aspirin; S09.90XA Unspecified injury of head, initial encounter
CPT/HCPCS: 12002; 70450; 90471; 90715; 99283